=== PATIENT | male | born 1950 | race Caucasian/White ===

== ENCOUNTER → 2018-06-24 09:01 | Outpatient (CLI) | payer MEDICARE, SELFPAY ==
--- NOTE | 2018-06-24 09:04 | RAD_ITS ---
STUDY: X-RAY - LEFT ELBOW REASON FOR EXAM: Male, 68 years old. Chronic elbow pain. TECHNIQUE: 3 view(s) of the elbow. COMPARISON: July 12, 2014 FINDINGS: Normal visualized humerus, radius and ulna. Normal radiocapitellar and ulnotrochlear articulations. The soft tissue structures are unremarkable. RAD/Elbow min 3 Views IMPRESSION: No significant abnormality identified. Electronically Signed: Dariel Spencer MD at 11:15 EDT , Service support ,
== END ==
PROVIDERS: Family Provider Family Medicine; PCP Family Medicine; Visit Provider Orthopaedic Surgery
DX: M25.522 Pain in left elbow (principal)
CPT/HCPCS: 73080

== ENCOUNTER → 2018-08-11 10:05 | Outpatient (CLI) | payer MEDICARE, SELFPAY ==
--- NOTE | 2018-08-11 10:09 | RAD_ITS ---
STUDY: X-RAY - LUMBAR SPINE REASON FOR EXAM: Male, 68 years old. Low back pain. TECHNIQUE: 5 view(s) of the lumbar spine were obtained. COMPARISON: MRI lumbar spine dated August 21, 2015. FINDINGS: Normal lumbar lordosis. There is no substantial scoliosis. There is a normal alignment of the vertebrae. There is multilevel endplate spondylosis of the lumbar vertebrae. There is multi-level degenerative disc disease with multi-level disc space narrowing. There is multilevel degenerative arthropathy of the facet joints. Surgical clips are visible in the pelvis. RAD/L/S Spine Min 4 Views IMPRESSION: Multilevel degenerative disc disease and degenerative arthropathy of the lumbar spine. Electronically Signed: Eugenia Gamez MD at 9:46 EDT , Service support ,
== END ==
PROVIDERS: Family Provider Family Medicine; PCP Family Medicine; Visit Provider Nurse Practitioner Family
DX: M54.9 Dorsalgia, unspecified (principal)
CPT/HCPCS: 72110

== ENCOUNTER → 2018-12-30 14:36 | Outpatient (CLI) | payer MEDICARE, SELFPAY ==
[2018-11-26 13:41] VITALS: BMI 25.1
== END ==
PROVIDERS: Family Provider Family Medicine; PCP Family Medicine; Referring Provider Urology; Visit Provider Urology
DX: N40.1 Benign prostatic hyperplasia with lower urinary tract symptoms (principal); Z12.5 Encounter for screening for malignant neoplasm of prostate
CPT/HCPCS: 36415; 84153; G0103

== ENCOUNTER → 2019-12-27 16:54 | Outpatient (CLI) | payer MEDICARE, SELFPAY ==
[2019-12-22 09:33] VITALS: BMI 25.1
--- NOTE | 2019-12-27 17:00 | MRI_ITS ---
STUDY: MRI LEFT ELBOW REASON FOR EXAM: Medial left elbow pain radiating down arm and episodes of numbness in the fourth and fifth digits. TECHNIQUE: Standardized fat and water weighted pulse sequences were obtained in all 3 orthogonal planes. COMPARISON: Radiographs 06/24/2018. FINDINGS: Normal radio-capitellum articulation. Normal radial collateral ligamentous complex. There is tendinosis of the common extensor tendon (inversion recovery coronal images 11-13) without discrete tendon tear. Normal ulnotrochlear articulation. There is a small partial tear of the ulnar collateral ligament at the humeral attachment (inversion recovery coronal image 15). There is an undersurface partial tear of the common flexor tendon (inversion recovery coronal image 15). The cubital tunnel is normal, with a normal ulnar nerve. Normal biceps tendon and distal insertion. Normal lacertus fibrosis. Normal brachialis musculotendinous insertion. Normal triceps tendon and teno-osseous insertion. Normal olecranon process. The visualized distal humerus, proximal radius, and ulna are normal. The visualized muscles of the distal arm and proximal forearm are normal. There is mild edema in the posterior ulnar subcutis adipose space. MRI/Upper Ext Joint Only(Routine) IMPRESSION: Partial tear of the common flexor tendon. Small partial tear of the ulnar collateral ligament. Tendinosis of the common extensor tendon. Electronically Signed: Favian Bernal MD at 7:49 EST Tel , Service support ,
== END ==
PROVIDERS: PCP Family Medicine; Referring Provider Orthopaedic Surgery; Visit Provider Orthopaedic Surgery
DX: G56.22 Lesion of ulnar nerve, left upper limb (principal)
CPT/HCPCS: 73221

== ENCOUNTER → 2020-01-10 10:13 | Outpatient (CLI) | payer MEDICARE, SELFPAY ==
[2020-01-03 08:31] VITALS: BMI 25.1
== END ==
PROVIDERS: PCP Family Medicine; Referring Provider Urology; Visit Provider Urology
DX: N40.1 Benign prostatic hyperplasia with lower urinary tract symptoms (principal)
CPT/HCPCS: 36415; 84153

== ENCOUNTER 2020-01-11 11:14 | Day surgery (SDC) | payer MEDICARE, SELFPAY ==
[2020-01-03 08:31] VITALS: BMI 25.1
[2020-01-11] MEDS: Lactated Ringers 1,000 ML 100 ML IV (12:01)
[2020-01-11 12:04] VITALS: BP 132/90; PULSE 60; RESP 16; TEMP 36.7; O2SAT 100; BMI 26.2
--- NOTE | 2020-01-11 13:00 | TESH_PTH ---
PATIENT: OMKAR SMITH LOC: [facility] [place] U#:[id number] AGE/SX: 69/M ROOM: RE01/11/[address]: Dr. Crista Shannon DO : 1950 BED: DIS: 01/11/2020 SPEC #: [id number] RECD: 01/11/20 16:26 STATUS: KELLY SMOOTH #: [id number] [place]: 01/11/20 13:[address]: Crista Shannon DEPT: SURGICAL PATHOLOGY RECD BY: Guevara Byrne ENTERED: 01/12/20 07:53 SP TYPE: TENDON OTHR DR: Dr. Tudne Lake MD Tissues: Tendon and tendon sheath, NOS Procedures: Surgery Specimen Level III HEADER OPERATION: Medial flexor tendon debridement, carpal tunnel release PRE-OP DIAGNOSIS: Partial tear of common extensor tendon of elbow; entrapment of left ulnar nerve TISSUE SUBMITTED: Tendon, left flexor MICROSCOPIC DIAGNOSIS Tendon, left flexor: Pieces of fibroadipose and dense fibroconnective tissue with reactive changes. CHRISTOPH:tarah 01/13/20 MICROSCOPIC DESCRIPTION Slides are reviewed. GROSS DESCRIPTION Received in fixative is one container labeled with the patient's name and designated tendon, left flexor. The specimen consists of two pieces of sweeney soft tissue that in aggregate measure 1.5 x 1 x 0.1 cm. The entire specimen is submitted in one cassette. / CHRISTOPH:tarah 01/12/20 TC:5 CPT: 00747
[2020-01-11] MEDS: Cefazolin 2 GM in 0.9% Normal Saline 100 ML IV (14:47)
[2020-01-11] MEDS: Mupirocin Ointment 22gm Tube 1 APPLIC (15:13)
--- NOTE | 2020-01-11 16:24 | HP.PCM_ITS ---
History and Physical I have re-examined the patient. There are no clinical changes since date of exam. Intake Intake Visit Reasons: left elbow Allergies povidone-iodine [From Betadine] Allergy (Verified 12/22/19 09:33) Rash soap [From Betadine] Allergy (Verified 12/22/19 09:33) Rash [facility] Surgical History (Updated 01/01/18 @ 15:13 by Briseyda Beaver) H/O hand surgery (Inactive) Previous back surgery (Inactive) S/P foot surgery (Inactive) cspine (Inactive) Social History (Updated 01/03/20 @ 09:[address] Crista Shannon, ) Smoking Status: Former smoker HPI left elbow: Details: Parts of this documentation were recorded by a scribe, this documentation accurately reflects the service provided and the decisions made by me, Dr. Crista Shannon DO 01/03/20 0828. OMKAR SMITH is a 69 year old M here today for F/U on left elbow. Patient had MRI completed on 12/27/2019 and is here today to get the results of this MRI. Patient continues to have left medial epicondyle pain. He also has numbness of his 4th and 5th digits. He has had an EMG completed has well. He had a left medial epicondyle injection in 03/22/2019 which was semi-effective. ROS [facility] [place] Reports joint pain, Denies joint swelling, Reports numbness, Reports tingling Skin/Breast Reports system reviewed and no additional complaints, except as docu Neuro Yes numbness, Yes tingling Ortho Exam Left Elbow Test: Yes Pain w/ resist wrist flex Sensation: Radial: I, Ulnar: D (diminished 2 pt 5th finger 5mm), Median: I Motor: Elbow Extension: 5, Elbow Flexion: 5, EPL: 5, FDP-2: 5, 1st Dorsal Interosseous: 5 Assessment & Plan Problems 1. Partial tear of common extensor tendon of elbow S56.519A 2. 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 His treatment options are do nothing, surgery for debridement and tendon repair with possible ulnar nerve transposition and explained the post op restrictions/splinting. Reviewed the pre-operative plans with the patient. Risks and benefits of the procedure were fully explained, including but not limited to infection, neurovascular injury, continued pain, arthritis, stiffness, need for further surgery, re-injury, DVT, PE, general risks of anesthesia, and loss of limb or life. The patient understands all the risks and does wish to proceed with written consent. Follow up post op or sooner if pain, swelling, numbness or associated symptoms, or concerns develop. All questions answered. Patient in agreement of plan. 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
--- NOTE | 2020-01-11 16:25 | PCM.DC.ORTHO ---
Discharge Diet: No Restrictions - Leave dressing intact, follow-up in 2 weeks for dressing removal and initiation of physical therapy, call with concerns Discharge Activity: May Not Drive May shower in (days): 1 Ice area for (Minutes): 20 - Every hour while awake. Weight Bearing Status: Weight bearing as tolerated Keep extremity elevated above heart level: Operative Extremity Call your doctor if your incision/area has: Continuous Slow Oozing, Sudden Increased Bleeding, Increased Pain/ Swelling, Increased Redness, Foul Smelling Discharge Call your doctor if you observe: Fever of 101 or Higher, Coldness, Increased Pain, Numbness or Tingling, Change in Color, Calf discomfort Allergies/Adverse Reactions: Allergies povidone-iodine [From Betadine] Allergy (Verified 01/06/20 14:15) Rash soap [From Betadine] Allergy (Verified 01/06/20 14:) Rash Medications to take at Discharge Aspirin [Adult Low Dose Aspirin EC] 81 mg PO DAILY 08/18/15 Multivitamin [Daily Multiple Vitamin] 1 ea PO DAILY 08/18/15 calcium carbonate 500 mg calcium (1,250 mg) tablet 500 mg PO DAILY tab 01/01/18 cholecalciferol (vitamin D3) 25 mcg (1,000 unit) capsule 1,000 unit PO ONCE 01/01/18 flaxseed oil 1,000 mg capsule 1,000 mg PO DAILY 07/19/19 ibuprofen 200 mg capsule 200 mg PO Q6H PRN 07/19/19 methimazole 5 mg tablet 3 tab PO DAILY 07/19/19 pantoprazole 40 mg tablet,delayed release 40 mg PO DAILY 07/19/19 DiphenhydrAMINE [Benadryl] 50 mg PO QHS PRN PRN 01/06/20 Finasteride [Proscar] 5 mg PO DAILY 01/06/20 Oxycodone HCl/Acetaminophen [Percocet 5/325] 1 - 2 tab PO Q6H PRN PRN 5 Days #28 tab 01/11/20 The following prescriptions were given: Oxycodone HCl/Acetaminophen [Percocet 5/325] 1 - 2 tab PO Q6H PRN PRN 5 Days #28 tab PRN Reason: Pain Transmission Status: Sent to [facility] Primary Care Physician: Tunde Lake MD [Primary Care Provider] - Test Results: Test results from this visit will be discussed in further detail at your follow-up appointment, if applicable. Please Follow Up With: Crista Shannon, do - [phone]
--- NOTE | 2020-01-11 16:26 | OP.PCM_ITS ---
Report of Operation Date of Procedure: 01/11/20 Pre-Operative Diagnosis: left medial epicondylitis, ulnar neuritis Post-Operative Diagnosis: same Surgery/Procedure Performed:: left ulnar nerve release/subcut transposition, medial epicondylitis debridement and fcr insertion excision and repair catapult and arresting gear officer: Dong Wright Type of Anesthesia:: General Anesthesiologist: Hermelindo Linder Estimated Blood Loss (mL): min Fluids Replaced: 1200cc Description of Procedure: Preoperative note Patient is a 69-year-old female with known left cubital tunnel and medial epicondylitis. EMG confirms ulnar neuritis. Patient having increasing weakness and numbness and tingling down to his fourth and fifth. Risks benefits and alternatives surgery discussed with patient. Risks including but not limited to blood loss, blood clot, infection, neurovascular injury, failure procedure, loss of life and loss of limb. Patient is aware like proceed with left cubital tunnel release release please note the possible transposition and medial epicondylitis debridement and flexor tendon debridement and repair as indicated. Operative note Patient seen and examined preoperative holding area. Left elbow was marked. Patient brought to the operating room placed supine in the operating table. Sign, anesthesia, antibiotics were administered. The left arm was prepped and draped in usual sterile fashion all bony possible padded and SCDs placed on her contralateral limb. Left arm was prepped and draped in usual sterile fashion we placed a sterile tourniquet on her arm during sterile draping. The incision was marked out between the medial epicondyle and the olecranon about 4 7 m proximal and distal. The we then made our incision with 15 blade down to the subcuticular layer we then dissected with tenotomy to the level of the subcuticular subcutaneous fat. We released that accommodation of Bovie and tenotomies down to start with the arcade of Doreen we then released the medial epicondyle intermuscular septum we able to then find the ulnar nerve at that point we then released Escalante's fascia there is a slight thickening between the medial epicondyle and olecranon fossa and olecranon which was released we then he also had quite entrapment at the 2 heads of the FCU which was released as well. We then moved to our medial epicondylitis. After making the sling with FCR we able to vision visualize the grayish tendon of the flexor wad and this was this common tendon was excised this completely we then used a knife and rasp to rasp the bone to instill blood flow and healing we then closed the defect with a 2-0 Vicryl. We then used the fcr fascia to create a sling anteriorly after we decreased the sling anteriorly at the nerve was completely released extend and flex the elbow noted we had no further impingement in the nerve did glide within the new sling. We then irrigated the incision with copious amounts sterile saline. The skin was closed with cutaneous subcuticular she has been 2-0 Vicryl in a running 4-0 Monocryl sterile dressings and a splint at 90? was applied. Patient tolerated procedure well there are no comp occasions transferred to recovery room in stable condition. Postoperative note Pharmacy has pain pills next Discussed with family next Follow-up in 2 weeks leave splint on at all times his Nonweightbearing left arm next Call with increased pain numbness tingling further issues arise next This note was generated with [employer] dictation software. It may contain incorrect words, spelling, and punctuation that were not noted in checking the note before signing.
[2020-01-11 16:34] VITALS: BP 127/82; BP 132/90; PULSE 76; RESP 16; TEMP 36.2; O2SAT 94
[2020-01-11 16:45] VITALS: BP 125/85; BP 132/90; PULSE 76; RESP 16; O2SAT 96
[2020-01-11 16:51] VITALS: BP 129/85; BP 132/90; PULSE 74; RESP 16; TEMP 36.1; O2SAT 95
[2020-01-11] MEDS: HYDROcodone Bitartrate/Apap 5/325 Tablet PO (17:10)
[2020-01-11 17:32] VITALS: BP 122/79; BP 132/90; PULSE 61; RESP 16; TEMP 36.8; O2SAT 97
== END 2020-01-11 17:44 | disposition home or self-care (01) ==
LOC: SDC 11:15 → AC 11:40
PROVIDERS: PCP Family Medicine; Referring Provider Orthopaedic Surgery; Visit Provider Orthopaedic Surgery
PROC: (CPT 24358; principal; 2020-01-11 12:45)
DX: G56.22 Lesion of ulnar nerve, left upper limb (principal); M77.02 Medial epicondylitis, left elbow; S56.519A Strain of other extensor muscle, fascia and tendon at forearm level, unspecified arm, initial encounter; X58.XXXA Exposure to other specified factors, initial encounter; Y93.9 Activity, unspecified; Y92.9 Unspecified place or not applicable; Y99.9 Unspecified external cause status; E07.9 Disorder of thyroid, unspecified; K21.9 Gastro-esophageal reflux disease without esophagitis; Z79.82 Long term (current) use of aspirin; Z79.899 Other long term (current) drug therapy; Z88.8 Allergy status to other drugs, medicaments and biological substances; Z87.891 Personal history of nicotine dependence; Z85.828 Personal history of other malignant neoplasm of skin
CPT/HCPCS: 01710; 24358; 64718; 88304; J7120; J2405

== ENCOUNTER → 2021-01-21 09:57 | Outpatient (CLI) | payer MEDICARE, SELFPAY ==
[2020-02-21 08:45] VITALS: BMI 26.2
[2021-01-21 11:21] LABS: PSA,Total - Annual Screen 1.47 ng/mL (0.00-4.00)
== END ==
PROVIDERS: PCP Family Medicine; Visit Provider Urology
DX: Z12.5 Encounter for screening for malignant neoplasm of prostate (principal)
CPT/HCPCS: 36415; 84153; G0103

== ENCOUNTER → 2021-04-25 09:58 | Outpatient (CLI) | payer MEDICARE, SELFPAY ==
[2020-02-21 08:45] VITALS: BMI 26.2
--- NOTE | 2021-04-25 10:06 | EKG12_ITS ---
Test Reason : PREOP Blood Pressure : / mmHG Vent. Rate : 058 BPM Atrial Rate : 058 BPM P-R Int : 130 ms QRS Dur : 086 ms QT Int : 416 ms P-R-T Axes : 061 052 074 degrees QTc Int : 408 ms Sinus bradycardia Otherwise normal ECG Confirmed by BILLY MAYORGA, KARL ([id number]), videotape editor AMALIA SHIRLEY ([id number]) on 04/29/2021 10:38:42 AM Referred By: Yobani Holloway Confirmed By:ROSANGELA CERVANTES MD
--- NOTE | 2021-04-25 10:22 | RAD_ITS ---
INDICATION: PRE OP EXAMINATION/TECHNIQUE: X-RAY - XR Chest 2 Views COMPARISON: None. FINDINGS: The lungs are clear. The cardiomediastinal silhouette is unremarkable. No pleural effusion or pneumothorax. No acute osseous abnormalities. RAD/Chest PA and Lateral IMPRESSION: No acute radiographic abnormalities. Electronically Signed: Martínez Malik MD at 21:11 EDT Tel , Service support ,
[2021-04-25 11:55] LABS: Absolute Lymphocyte Count 1.36 X10^3/uL (0.83-4.51); Absolute Neutrophil Count 3.1 X10^3/uL (2.0-7.7); Basophil# 0.04 X10^3/uL; Basophil% 0.8 % (0-1); Eosinophil# 0.15 X10^3/uL; Eosinophils% 2.9 % (0-5); Hematocrit 44.4 % (40-54); Hemoglobin 14.4 g/dL (13.0-16.5); Lymphocyte # 1.36 X10^3/ul (0.83-4.51); Lymphocyte % 26.4 % (19-41); Mean Corp Hgb Conc 32.4 g/dL (32-36); Mean Corpuscular Hgb 30.4 pg (27.0-32.0); Mean Corpuscular Volume 93.7 fL (80-94); Mean Platelet Vol. 10.8 fl (6.2-12.0); Monocyte# 0.46 X10^3/uL; Monocyte% 8.9 % (0-10); NRBC Flagged by Analyzer 0 % (0-5); Neutrophil # 3.14 X10^3/uL (2.7-7.7); Neutrophil % 60.8 % (47-70); Platelet Count 194 K/mm3 (150-450); RBC Distribution Width CV 13.2 % (11.6-14.6); RBC Distribution Width SD 45.6 fl (35.1-43.9); Red Blood Count 4.74 M/mm3 (4.6-6.2); White Blood Count 5.2 K/mm3 (4.4-11.0)
[2021-04-25 13:02] LABS: Anion Gap 5 (5-15); BUN 18 mg/dL (7-18); BUN/Creat Ratio 18.9 RATIO (10-20); Calcium,Total 9.1 mg/dL (8.5-10.1); Chloride 104 mmol/L (98-107); Creatinine, Serum 0.95 mg/dL (0.70-1.30); EST Glomerular Filtration Rate 83 mL/min (>60); Est Glom Filt Rate - Afr Amer 101 mL/min (>60); Glucose 92 mg/dL (74-106); Potassium 4.7 mmol/L (3.5-5.1); Sodium Level 139 mmol/L (136-145)
== END ==
PROVIDERS: PCP Family Medicine; Referring Provider Specialist; Visit Provider Specialist
DX: Z01.810 Encounter for preprocedural cardiovascular examination (principal); Z01.811 Encounter for preprocedural respiratory examination; I10 Essential (primary) hypertension
CPT/HCPCS: 36415; 71046; 80048; 85025; 93005

== ENCOUNTER 2022-02-14 09:15 | Outpatient (CLI) | payer MEDICARE, SELFPAY ==
--- NOTE | 2022-02-14 09:20 | RAD_ITS ---
STUDY: X-RAY - ESOPHAGUS (BARIUM SWALLOW) WITH FLUOROSCOPY REASON FOR EXAM: Male, 71 years old. DYSPHAGIA TECHNIQUE: 13 view(s) of the esophagus were obtained following swallowing of barium. FLUOROSCOPY TIME (if supplied): (21 seconds) minutes/seconds COMPARISON: Comparison is made with prior study dated 05/28/2017. FINDINGS: There is no demonstrated esophageal foreign body. There is no demonstrated stricture or mucosal abnormality. Normal gastroesophageal junction, without a demonstrated hiatal hernia. The patient ingested a 12 mm tablet of barium without any difficulty. There is atherosclerotic tortuosity of the aortic arch and descending thoracic aorta. Normal visualized pulmonary parenchyma. Normal visualized osseous structures of the thorax. RAD/Esophagus Dual Contrast IMPRESSION: Normal plain film x-ray examination (barium swallow) of the esophagus. Electronically Signed: Joaquín John MD at 9:54 EDT ,
== END 2022-02-14 23:59 | disposition home or self-care (01) ==
LOC: RAD 09:16
PROVIDERS: PCP Family Medicine; Referring Provider Family Medicine; Visit Provider Family Medicine
DX: R13.19 Other dysphagia (principal)
CPT/HCPCS: 74221

== ENCOUNTER → 2023-02-05 | Outpatient (CLI) | payer MEDICARE, SELFPAY ==
[2023-02-05 11:06] LABS: PSA,Total - Annual Screen 2.91 ng/mL (0.00-4.00)
== END | disposition home or self-care (01) ==
LOC: LAB 10:21
PROVIDERS: PCP Family Medicine; Referring Provider Urology; Visit Provider Urology
DX: Z12.5 Encounter for screening for malignant neoplasm of prostate (principal)
CPT/HCPCS: 36415; 84153; G0103

== ENCOUNTER → 2023-09-04 | Outpatient (CLI) | payer MEDICARE, SELFPAY ==
[2023-09-04 15:15] LABS: Absolute Lymphocyte Count 1.58 X10^3/uL (0.83-4.51); Absolute Neutrophil Count 3.9 X10^3/uL (2.0-7.7); Basophil# 0.05 X10^3/uL; Basophil% 0.8 % (0-1); Eosinophil# 0.12 X10^3/uL; Hematocrit 44.1 % (40-54); Lymphocyte # 1.58 X10^3/ul (0.83-4.51); Mean Corp Hgb Conc 31.7 g/dL (32-36); Mean Corpuscular Hgb 30.4 pg (27.0-32.0); Mean Corpuscular Volume 95.9 fL (80-94); Mean Platelet Vol. 10.8 fl (6.2-12.0); Monocyte# 0.42 X10^3/uL; Monocyte% 6.9 % (0-10); NRBC Flagged by Analyzer 0 % (0-5); Neutrophil # 3.89 X10^3/uL (2.7-7.7); Neutrophil % 64.1 % (47-70); Platelet Count 254 K/mm3 (150-450); RBC Distribution Width CV 12.8 % (11.6-14.6); RBC Distribution Width SD 45.5 fl (35.1-43.9); White Blood Count 6.1 K/mm3 (4.4-11.0)
[2023-09-04 15:38] LABS: Cholesterol 157 mg/dL (200); Ferritin 124 ng/mL (26-388); High Density Lipoprotein 67 mg/dL; Iron 86 ug/dL (65-175); Iron Binding Capacity,Total 319 ug/dL (250-450); Triglycerides 96 mg/dL; Very Low Density Lipoprotein 19 mg/dL (5-40)
== END | disposition home or self-care (01) ==
LOC: BIMLAB 12:11
PROVIDERS: PCP Internal Medicine; Referring Provider Internal Medicine; Visit Provider Internal Medicine
DX: D64.9 Anemia, unspecified (principal); E78.5 Hyperlipidemia, unspecified
CPT/HCPCS: 36415; 80061; 82728; 83540; 83550; 85025

== ENCOUNTER → 2023-10-02 | Outpatient (CLI) | payer MEDICARE, SELFPAY ==
--- NOTE | 2023-10-02 13:48 | ST.MBS ---
Modified Barium Swallow Patient Information Study Date: 10/02/23 Study Time: 12:50 Direct Billable Minutes: 117 Total Minutes procedure & reportin Diagnosis: Dysphagia R13.10 Referring Physician: Vy Casas Reason for Referral: Objectively assess swallow function, assess risk for aspiration, and determine recommendations for least restrictive diet textures and compensatory strategies to improve safety of swallow. Medical History: PMH: Allergies, Anemia, Anxiety, Arthritis, Bunion, Carpal tunnel syndrome, Chronic back pain, Gastrointestinal problem, Graves disease, Shae's disease, Hearing problem, High cholesterol, History of back problems, History of melanoma, GERD, HLD, Impacted cerumen of left ear, Prostate atrophy, Sciatica, Swallowing difficulty, Thyroid disease, and Vitamin deficiency. PCP?s Office Visit 09/04/2023 ? ?History of swallowing difficulty. This has been worsening over the years. Had dilatation a few years ago and he does not remember being told that he would need another. Has had coughing episodes with food more often lately and has to chew more or regurgitate his meals and re-chew.? She referred him for this MBSS and to general surgery to be considered for another dilation. Per patient, he feels as if dry textures get caught in his upper throat. He has had this swallowing difficulty since he had a cervical fusion ~6 years ago. He denies history of choking or PNA. Current Diet Ordered: Regular textures / Thin liquids Dentition: WNL Mental Status: WNL Respiratory Status: Oxygenating on Room Air Penetration-Aspiration Scale Penetration-Aspiration Scale: OBJECTIVE ASSESSMENT OF SWALLOW FUNCTION (QUANTITATIVE ? PER TRIAL): PENETRATION / ASPIRATION SCALE (GARCIA): 1 = does not enter airway 2 = enters airway/above vocal folds/ejected 3 = enters airway/above vocal folds/not ejected 4 = enters airway/contacts vocal folds/ejected 5 = enters airway/contacts vocal folds/not ejected 6 = enters airway/below vocal folds/ejected 7 = enters airway/below vocal folds/not ejected despite effort 8 = enters airway/below vocal folds/no effort VIDEOFLOROSCOPIC SCALE SCORE (GARCIA): Grade I = aspiration of material that has penetrated into the laryngeal vestibule, intact cough reflex Grade II = aspiration < 10 % of the bolus, intact cough reflex Grade III = aspiration of < 10 % of the bolus, reduced cough reflex or aspiration of > 10 % of the bolus, intact cough reflex Grade IV = aspiration of > 10 % of the bolus, reduced cough reflex Penetration-Aspiration Scale Score Thin Liquid via teaspoon: Result: 1= does not enter airway Thin Liquid via teaspoon Effortful swallow: Result: 1= does not enter airway Thin Liquid via sequential sips: cup: Result: 2= enter airway/above vocal folds/ejected [place] Thick Liquid via small single sip: cup: Result: 1= does not enter airway Pudding via teaspoon: Result: 1= does not enter airway Comment: Esophageal screen - complete clearance. Whole cookie: Result: 1= does not enter airway Whole cookie Chin tuck: Result: 1= does not enter airway Thin Liquid via single sip: straw: Result: 1= does not enter airway Comment: Liquid wash did not clear cookie residue. PRINCIPAL DATABASE DEVELOPER cued effortful double swallow, but cookie residue remained in vallecula. Whole cookie Left head turn: Result: 1= does not enter airway Oral Phase Labial Seal: No Labial Escape Tongue Control During Bolus Hold: Posterior escape of greater than half of bolus Bolus Preparation/Mastication: Timely and efficient chewing and mashing Bolus Transport/Lingual Motion: Delayed initiation of tongue motion Oral Residue: Residue collection on oral structures Pharyngeal Phase Initiation of Pharyngeal Swallow: Bolus head in pyriforms Soft Palate Elevation: No bolus between soft palate and pharyngeal wall Laryngeal Elevation: Comp. Superior move thyroid cart w/comp. apprx arytenoid cart-epig pet Anterior Hyoid Excursion: Partial anterior movement (minimal) Epiglottic Movement: No inversion Laryngeal Vestibule Closure at Height of Swallow: Incomplete; narrow column of air/contrast in laryngeal vestibule Pharyngeal Stripping Wave: Present - diminished Pharyngoesophageal Segment Opening: Complete distension and complete duration; no obstruction of flow Tongue Base Retraction: Wide column of contrast between tongue base & post. pharyngeal wall Pharyngeal Residue: Collection of residue within or on pharyngeal structures Treatment Strategies Effects of treatment strategies attemped:: Effortful swallow = effective with liquids, not effective with cookie Head rotation (L) = effective in clearance of solids in the vallecula Multiple swallows = effective with liquids, somewhat effective with cookie Chin tuck = not effective, worsened vallecular residues Diagnosis/Impression Diagnosis: Mild pharyngeal dysphagia R13.12 Impression: The pharyngeal phase is primarily marked by... -Delayed swallow onset with large sips of liquids in the pyriforms and laryngeal vestibule prior to swallow onset. -Minimal anterior hyoid excursion resulting in no epiglottic inversion. -Absent epiglottic inversion, mildly decreased tongue base retraction, and decreased pharyngeal stripping wave resulted in collection of residues in the vallecula with cookie. This residue best cleared with use of head rotation. Head rotation was trialed to attempt better clearing the epiglottis past the posterior pharyngeal wall. PRINCIPAL DATABASE DEVELOPER had the patient trial a dry, uncoated cookie after the study with head rotation again, and he reported no sensation of retention. -Laryngeal penetration of large sips of thin liquids via cup; however, full ejection due to complete laryngeal elevation. No aspiration observed during the study. Recommendations Diet: Regular Textures and Thin Liquids Compensatory Strategies: Small Bites (head turn (either direction) during the swallow with dry textures), Small Sips (consider use of effortful swallows), Slow Rate, Multiple Swallows, Sitting upright and Remain sitting upright for 30 minutes after PO intake (hx of GERD) Recommend Repeat Modified Barium Swallow: TBD Need for Skilled Speech Therapy Services: Yes Comment: Will recommend training in recommended strategies to improve pharyngeal clearance and decrease risk for aspiration. Train in recommended oropharyngeal exercises, including Sierra, Minnie, Effortful breath hold and swallow, and CTAR to promote improved anterior hyoid excursion, tongue base retraction, and pharyngeal stripping wave. Education Completed: 1. Described result of evaluation., 2. Pt understands evaluation & agrees with goals and treatment plan. and 7. Pt requires further education on strategies & risks. Status Active ST Patient: Active Contact Information [facility] Speech Therapy:: Jenna Blakely M.A. [facility]AB[employer] DEVELOPER Speech-Language Pathologist [facility] [address] [address] [email or web address] [phone]
== END | disposition home or self-care (01) ==
LOC: RAD 12:51
PROVIDERS: PCP Internal Medicine; Referring Provider Internal Medicine; Visit Provider Internal Medicine
DX: R13.10 Dysphagia, unspecified (principal)
CPT/HCPCS: 74230; 92611

== ENCOUNTER 2023-11-19 08:54 | Day surgery (SDC) | payer MEDICARE, SELFPAY ==
[2023-11-19] VITALS (7 sets, daily range): BP systolic 89–132; BP diastolic 62–69; PULSE 52–80; RESP 16–18; TEMP 36.5–37.1; O2SAT 92–98; BMI 25.7
--- OUTSIDE RECORDS SUMMARY | 2023-11-19 09:08 | XMS RPT_ITS | CCD ---
Author Name Unknown Address [address] [place] [address] Organization [facility] Care Team Providers Care Clinical Trial Educator Name Role Phone Johnie Luna Unavailable JIGNA DORAN Unavailable Unavailable JIGNA DORAN Unavailable Unavailable LOKI WAGGONER Unavailable Unavailable Johnie Luna Unavailable YAEL LAKE MD Primary Care Physician ( [phone] Yael Lake MD Primary Care Provider Yael Lake MD Primary Care Provider Yael Lake MD Primary Care Provider Yael Lake MD Primary Care Provider YAEL LAKE Primary Care Unavailab YAEL Hansen Attending Unavailab YAEL Hansen Primary Care Unavailab LANDON Rogel Attending Unavailable YAEL LAKE Primary Care Unavailab YAEL Hansen Attending Unavailab YAEL Hansen Primary Care Unavailab YAEL Hansen Attending Unavailab YAEL Hansen Primary Care Unavailab YAEL Hansen Referring Unavailab YAEL Hansen Primary Care Unavailab YAEL Hansen Referring Unavailab YAEL Hansen Primary Care Unavailab YAEL Hansen Attending Unavailab YAEL Hansen Primary Care Unavailab YAEL Hansen Referring Unavailab YAEL Hansen MD Primary Care Physician [phone] IVON SINGH PA-C Attending Unavailable YAEL LAKE MD Primary Care IVON Sargent PA-C Referring Unavailable CONNIE GARCIA MD Attending Denita LAKE MD, YAEL Primary Care Denita marvin Allergies Allergy Classification Reported Allergen(s) Allergy Type Date of Onset Reaction(s) Facility (18 sources) Povidone-Iodine; Translations: [povidone iodine topical] Drug Allergy 02-10-2006 [facility] Medications Current Medications Medication Drug Class(es) Dates Sig (Normalized) Sig (Original) amoxicillin 875 mg / clavulanate 125 mg oral tablet (1 source) Penicillin-class Antibacterial Start: 03-13-2022 End: 03-20-2022 take 1 tablet by mouth twice daily amoxicillin-clav ulanic acid (AUGMENTIN) 875-125 mg per tablet Take 1 tablet by mouth twice daily for 7 days. 14 tablet 0 03/13/2022 03/20/2022 Active Completed/Discontinued Medications Medication Drug Class(es) Dates Sig (Normalized) Sig (Original) atorvastatin 20 mg oral tablet (3 sources) HMG-CoA Reductase Inhibitor Start: 04-06-2023 End: 07-05-2023 take 1 tablet by mouth once daily at bedtime for hyperlipidemia atorvastatin (LIPITOR) 20 mg tablet Take 1 tablet by mouth daily at bedtime. For cholesterol. 90 tablet 0 04/06/2023 Active Problems Active Problems Problem Classification Problem Date Documented Da te Episodic/Chronic Allergic reactions (14 sources) Environmental allergy; Translations: [Other allergy status, other than to drugs and biological substances] 10-08-2017 Episodic Anxiety disorders (20 sources) Panic disorder; Translations: [Panic disorder [episodic paroxysmal anxiety]] Onset: 04-06-2023 04-05-2018 Chronic Deficiency and other anemia (3 sources) Iron deficiency anemia 06-14-2020 Episodic Disorders of lipid metabolism (18 sources) Pure hypercholesterolemi a; Translations: [Pure hypercholesterolemi a, unspecified] Onset: 04-01-2023 03-10-2006 Chronic Fluid and electrolyte disorders (3 sources) Hyperkalemia 09-06-2020 Episodic Hemorrhoids (14 sources) Hemorrhoids; Translations: [Unspecified hemorrhoids] 03-10-2006 Episodic Hyperplasia of prostate (20 sources) Benign prostatic hypertrophy without outflow obstruction; Translations: [Benign prostatic hyperplasia without lower urinary tract symptoms] Onset: 08-24-2006 03-10-2006 Chronic Melanomas of skin (15 sources) Malignant melanoma of skin of trunk; Translations: [Malignant melanoma of other part of trunk] 03-11-2006 Chronic Open wounds of extremities (1 source) Injury of great toenail; Translations: [Unspecified open wound of left great toe with damage to nail, initial encounter] Episodic Other and unspecified benign neoplasm (14 sources) History of polyp of colon; Translations: [Personal history of colonic polyps] 03-10-2006 Episodic Other connective tissue disease (1 source) Impingement syndrome of left shoulder region; Translations: [Impingement syndrome of left shoulder] Episodic Other diseases of bladder and urethra (14 sources) Bladder neck obstruction; Translations: [Bladder-neck obstruction] Onset: 08-24-2006 08-24-2006 Chronic Other gastrointestinal disorders (2 sources) Esophageal dysphagia; Translations: [Other dysphagia] Episodic Other hereditary and degenerative nervous system conditions (2 sources) Essential tremor; Translations: [Essential tremor] Chronic Other skin disorders (1 source) Skin irritation ; Translations: [Other skin changes] Episodic Other upper respiratory infections (1 source) Acute frontal sinusitis; Translations: [Acute frontal sinusitis, unspecified] Episodic Residual codes; unclassified (2 sources) Family history of aneurysm of abdominal aorta; Translations: [Family history of ischemic heart disease and other diseases of the circulatory system] Episodic Sprains and strains (3 sources) Strain of muscle(s) and tendon(s) of the rotator cuff of left shoulder, initial encounter; Translations: [Strain of muscle(s) and tendon(s) of the rotator cuff of left shoulder, subsequent encounter] Onset: 10-06-2016 10-06-2016 Episodic Thyroid disorders (20 sources) Graves' disease; Translations: [Shae thyroiditis] Onset: 09-08-2011 06-14-2020 Chronic Unclassified (1 source) Unknown / UNK(Unknown) Onset: 06-05-2017 Viral infection (1 source) Disease caused by 2019-nCoV; Translations: [COVID-19] Episodic Past or Other Problems Problem Classification Problem Date Documented Da te Episodic/Chronic Mycoses (2 sources) Onychomycosis; Translations: [Tinea unguium] Onset: 05-06-2022 Episodic Other connective tissue disease (3 sources) Subacromial bursitis; Translations: [Medial epicondylitis, unspecified elbow] Onset: 07-12-2014 10-06-2016 Episodic Other connective tissue disease (1 source) Medial epicondylitis, unspecified elbow; Translations: [Medial epicondylitis, unspecified elbow] Onset: 07-12-2014 07-12-2014 Episodic Other gastrointestinal disorders (1 source) Dysphagia Onset: 06-05-2017 Episodic Other gastrointestinal disorders (14 sources) Diarrhea; Translations: [Diarrhea, unspecified] Onset: 11-08-2007 11-08-2007 Episodic Other injuries and conditions due to external causes (2 sources) Injury of axillary nerve, left arm, initial encounter; Translations: [Injury of axillary nerve, left arm, initial encounter] Onset: 10-06-2016 10-19-2016 Episodic Other male genital disorders (14 sources) High grade prostatic intraepithelial neoplasia; Translations: [Prostatic intraepithelial neoplasia] Onset: 01-20-2017 01-20-2017 Episodic Other non-traumatic joint disorders (2 sources) Pain in unspecified elbow; Translations: [Pain in unspecified elbow] Onset: 07-12-2014 07-12-2014 Episodic Other screening for suspected conditions (not mental disorders or infectious disease) (15 sources) Raised prostate specific antigen; Translations: [Elevated prostate specific antigen [PSA]] Onset: 11-21-2008 11-21-2008 Episodic Results Test Name Value Interpretation Reference Range Facil ity Vital Signs Date Time Vital Sign Value Performing Clinician Facility 04-06-2023 09:38-0400 Diastolic blood pressure 66 mm[Hg] Yael Lake MD Work Phone: [facility] 04-06-2023 09:38-0400 Heart rate 52 /min Yael Lake MD Work Phone: [facility] 04-06-2023 09:38-0400 Respiratory rate 16 /min Yael Lake MD Work Phone: [facility] 04-06-2023 09:38-0400 SaO2% (BldA) [Mass fraction] 96 % Yael Lake MD Work Phone: [facility] 04-06-2023 09:38-0400 Systolic blood pressure 112 mm[Hg] Yael Lake MD Work Phone: [facility] 10-06-2022 09:38-0500 Body weight 84.28 kg Yael Lake MD Work Phone: [facility] 10-06-2022 09:38-0500 Diastolic blood pressure 68 mm[Hg] Yael Lake MD Work Phone: [facility] 10-06-2022 09:38-0500 Heart rate 59 /min Yael Lake MD Work Phone: [facility] 10-06-2022 09:38-0500 Respiratory rate 16 /min Yael Lake MD Work Phone: [facility] 10-06-2022 09:38-0500 SaO2% (BldA) [Mass fraction] 97 % Yael Lake MD Work Phone: [facility] 10-06-2022 09:38-0500 Systolic blood pressure 104 mm[Hg] Yael Lake MD Work Phone: [facility] 07-04-2022 09:47-0400 Body weight 82.56 kg Yael Lake MD Work Phone: [facility] 07-04-2022 09:47-0400 Diastolic blood pressure 60 mm[Hg] Yael Lake MD Work Phone: [facility] 07-04-2022 09:47-0400 Heart rate 59 /min Yael Lake MD Work Phone: [facility] 07-04-2022 09:47-0400 Respiratory rate 16 /min Yael Lake MD Work Phone: [facility] 07-04-2022 09:47-0400 SaO2% (BldA) [Mass fraction] 96 % Yael Lake MD Work Phone: [facility] 07-04-2022 09:47-0400 Systolic blood pressure 102 mm[Hg] Yael Lake MD Work Phone: [facility] 05-06-2022 14:54-0400 Body weight 82.56 kg Yael Lake MD Work Phone: [facility] 05-06-2022 14:54-0400 Diastolic blood pressure 60 mm[Hg] Yael Lake MD Work Phone: [facility] 05-06-2022 14:54-0400 Heart rate 63 /min Yael Lake MD Work Phone: [facility] 05-06-2022 14:54-0400 Respiratory rate 16 /min Yael Lake MD Work Phone: [facility] 05-06-2022 14:54-0400 SaO2% (BldA) [Mass fraction] 97 % Yael Lake MD Work Phone: [facility] 05-06-2022 14:54-0400 Systolic blood pressure 106 mm[Hg] Yael Lake MD Work Phone: [facility] 03-13-2022 09:43-0400 Body temperature 98.01 [degF] Jerrica Athy PA-C Work Phone: [facility] 03-13-2022 09:43-0400 Body weight 85.09 kg Jerrica Athy PA-C Work Phone: [facility] 03-13-2022 09:43-0400 Diastolic blood pressure 78 mm[Hg] Jerrica Athy PA-C Work Phone: [facility] 03-13-2022 09:43-0400 Heart rate 67 /min Jerrica Athy PA-C Work Phone: [facility] 03-13-2022 09:43-0400 Respiratory rate 20 /min Jerrica Athy PA-C Work Phone: [facility] 03-13-2022 09:43-0400 SaO2% (BldA) [Mass fraction] 98 % Jerrica Athy PA-C Work Phone: [facility] 03-13-2022 09:43-0400 Systolic blood pressure 122 mm[Hg] Jerrica Anguiano PA-C Work Phone: [facility] 02-10-2022 09:50-0400 Body weight 84.91 kg Yael Lake MD Work Phone: [facility] 02-10-2022 09:50-0400 Diastolic blood pressure 70 mm[Hg] Yael Lake MD Work Phone: [facility] 02-10-2022 09:50-0400 Heart rate 59 /min Yael Lake MD Work Phone: [facility] 02-10-2022 09:50-0400 Respiratory rate 18 /min Yael Lake MD Work Phone: [facility] 02-10-2022 09:50-0400 SaO2% (BldA) [Mass fraction] 97 % Yael Lake MD Work Phone: [facility] 02-10-2022 09:50-0400 Systolic blood pressure 118 mm[Hg] Yael Lake MD Work Phone: [facility] 08-23-2014 08:56-0400 [facility].18 [facility] Work Phone: 07-12-2014 10:17-0400 BP Diastolic 78 mm[Hg] Johnie Luna [facility] Work Phone: 07-12-2014 10:17-0400 BP Systolic 115 mm[Hg] [facility] Work Phone: 07-12-2014 10:17-0400 Height 180.34 cm Johnie Luna [facility] Work Phone: Encounters Encounter Date Encounter Type Care Provider Facility Start: 06-30-2023 End: 07-01-2023 ambulatory CONNIE GARCIA MD Facility:B Start: 06-30-2023 End: 06-30-2023 Patient encounter procedure CONNIE GARCIA MD [facility] Start: 05-06-2023 Refill Yael Lake MD Work Phone: [facility] Procedures Date Procedure Procedure Detail Performing Clinician Start: 04-10-2023 Us abdominal aorta r eal time screen study aaa Yael Lake MD Work Phone: Start: 04-06-2023 Lipid 1996 panel - S maikel or Plasma Us 1 Work Phone: Start: 07-14-2022 Adult depression screening assessment Landon Hurst APRN.HOISTMAN Work Phone: Start: 02-10-2022 Adult depression screening assessment Yael Lake MD Work Phone: Start: 12-02-2019 Colonoscopy Tunde Lake MD Work Phone: Start: 07-08-2017 End: 07-22-2017 Drain/inject, joint/bursa Johnie S Jeremy Work Phone: Start: 01-12-2017 End: 01-26-2017 Drain/inject, joint/bursa Johnie S Jeremy Work Phone: Start: 10-06-2016 End: 10-19-2016 Drain/inject, joint/bursa Johnie S Jeremy Work Phone: Start: 07-30-2016 End: 07-30-2016 Drain/inject, joint/bursa Johnie S Jeremy Work Phone: Start: 04-09-2016 End: 04-23-2016 Drain/inject, joint/bursa Johnie S Jeremy Work Phone: Start: 11-29-2014 End: 12-04-2014 Drain/inject, joint/bursa Johnie S Jeremy Work Phone: Start: 07-12-2014 End: 07-12-2014 X-ray exam of elbow Johnie Luna Work Phone: Entire carpal canal (body structure) YAEL LAKE MD Excision of bunion ERIN LAKE MD Plan of Treatment Date Care Activity Detail Author Start: 04-06-2028 Lipid 1996 panel - Serum or Plasma Lipid Screening [facility] Start: 04-06-2028 LIPID SCREEN LIPID SCREEN [facility] Start: 11-17-2027 Urine microalbumin profile [facility] Start: 04-25-2026 LIPID SCREEN LIPID SCREEN [facility] Start: 04-06-2026 DIABETES SCREEN DIABETES SCREEN [facility] Start: 04-06-2026 Diabetes Screening Diabetes Screening [facility] Start: 05-06-2025 DIABETES SCREEN DIABETES SCREEN [facility] Start: 12-02-2024 Colonoscopy COLONOSCOPY [facility] Start: 12-02-2024 COLORECTAL CANCER SCREENING COLORECTAL CANCER SCREENING [facility] Start: 04-25-2024 DIABETES SCREEN DIABETES SCREEN [facility] Start: 04-06-2024 ANNUAL PCP TEAM CHRONIC DISEASE VISIT ANNUAL PCP TEAM CHRONIC DISEASE VISIT [facility] Start: 10-06-2023 ANNUAL PCP TEAM CHRONIC DISEASE VISIT ANNUAL PCP TEAM CHRONIC DISEASE VISIT [facility] Start: 07-24-2023 Covid-19 Vaccine ( season) Covid-19 Vaccine () [facility] Start: 07-24-2023 Influenza vaccination Influenza Vaccine (#1) [facility] Start: 07-15-2023 ANNUAL PCP TEAM CHRONIC DISEASE VISIT ANNUAL PCP TEAM CHRONIC DISEASE VISIT [facility] Start: 07-14-2023 Adult depression screening assessment DEPRESSION SCREENING [facility] Start: 07-04-2023 ANNUAL PCP TEAM CHRONIC DISEASE VISIT ANNUAL PCP TEAM CHRONIC DISEASE VISIT [facility] Start: 05-06-2023 ANNUAL PCP TEAM CHRONIC DISEASE VISIT ANNUAL PCP TEAM CHRONIC DISEASE VISIT [facility] Start: 02-10-2023 Adult depression screening assessment DEPRESSION SCREENING [facility] Start: 02-10-2023 ANNUAL PCP TEAM CHRONIC DISEASE VISIT ANNUAL PCP TEAM CHRONIC DISEASE VISIT [facility] Start: 11-23-2022 ADVANCE DIRECTIVE DISCUSSION ADVANCE DIRECTIVE DISCUSSION [facility] Start: 11-23-2022 DEPRESSION ASSESSMENT DEPRESSION ASSESSMENT [facility] Start: 07-24-2022 Influenza vaccination INFLUENZA (#1) [facility] Start: 05-06-2022 End: 07-06-2022 Comprehensive metabolic 2000 panel - Serum or Plasma [facility] Work Phone: Immunizations Immunization Date Immunization Notes Care Provider Fa [facility] 08-14-2022 influenza, high-dose , quadrivalent vaccine (FLUZONE HIGH DOSE QUADRIVALENT) Yael Lake MD Work Phone: [facility] 08-14-2022 influenza virus vaccine, unspecified formulation Us 1 Work Phone: [facility] 09-13-2021 COVID-19 vaccine, fu ll dose (MODERNA) Yael Lake MD Work Phone: [facility] 09-06-2021 influenza, high dose seasonal, preservative-free Yael Lake MD Work Phone: [facility] 02-19-2021 COVID-19 vaccine, fu ll dose (MODERNA) Yael Lake MD Work Phone: [facility] 01-22-2021 COVID-19 vaccine, fu ll dose (MODERNA) Yael Lake MD Work Phone: [facility] 09-07-2020 influenza, seasonal, injectable Yael Lake MD Work Phone: [facility] 09-14-2019 zoster vaccine recombinant Yael Lake MD Work Phone: [facility] 07-01-2019 zoster vaccine recombinant Yael Lake MD Work Phone: [facility] 10-06-2018 pneumococcal polysaccharide vaccine, 23 valent Yael Lake MD Work Phone: [facility] 11-17-2017 tetanus toxoid, redu johnna diphtheria toxoid, and acellular pertussis vaccine, adsorbed Yael Lake MD Work Phone: [facility] Work Phone: 09-14-2017 influenza, high dose seasonal, preservative-free Yael Lake MD Work Phone: [facility] 08-12-2017 pneumococcal conjuga te vaccine, 13 valent Yael Lake MD Work Phone: [facility] Payers Date Payer Category Payer Medicare AETNA MEDICARE A ETNA MEDICARE PPO [id number] 2021-Present [phone] [address] [place] [address] PPO [id number] 2021 Medicare AETNA MEDICARE A ETNA MEDICARE PPO [id number] 2021-Present [phone] [address] [place] [address] PPO [id number] 2021 Medicare [id number] 2017 Unknown [id number] 1950 Unknown [id number] 1950 Unknown [id number] Social History Date Type Detail Facility Start: 02-09-2020 Never smoked t obacco (finding) [facility] Sex Assigned At Male [facility] Start: 08-12-2017 End: 04-06-2023 Tobacco smoking status NHIS Ex-smoker [facility] Work Phone: Start: 08-12-2017 End: 04-06-2023 Tobacco use and exposure Former smokeless tobacco user [facility] Work Phone: End: 08-12-2002 History of tobacco use User of smokeless tobacco [facility] Work Phone: Start: 02-10-2022 End: 04-06-2023 Alcohol intake Current drinker of alcohol (finding) [facility] Start: 02-10-2022 End: 04-06-2023 Alcohol intake [facility] Start: 04-04-2020 End: 07-14-2022 History SDOH Alcohol Frequency [address] [facility] Start: 04-04-2020 End: 07-14-2022 History SDOH Alcohol Std Drinks [address] [facility] Start: 10-06-2020 History SDOH Social Connections Phone [address] [facility] Start: 10-06-2020 End: 07-14-2022 History SDOH Social Connections Meetings [address] [facility] Start: 10-06-2020 End: 07-14-2022 History SDOH Physical Activity DPW [address] [facility] Start: 04-04-2020 End: 07-14-2022 History SDOH Financial [address] [facility] Start: 10-06-2020 Education [address] [facility] Start: 1950 Sex Assigned At Not on file [facility] Start: 01-31-2022 End: 10-06-2022 Exposure to SARS-CoV-2 (event) Not sure [facility] History of tobacco use Current smoker [facility] Work Phone: History of tobacco use Cigarette Smoker [facility] Work Phone: Start: 07-14-2022 End: 04-06-2023 Social connection and isolation panel [facility] Do you belong to any clubs or organizations such as worship groups, unions, fraternal or athletic groups, or school groups? Yes [facility] Are you now , , , , never or living with a partner? [facility] How often to you hav e a drink containing alcohol? 2-4 times a month [facility] How many standard dr inks containing alcohol do you have on a typical day? 1 or [address] [facility] How often do you hav e 6 or more drinks on 1 occasion? Never [facility] How hard is it for y ou to pay for the very basics like food, housing, medical care, and heating Not hard at all [facility] Do you feel stress - tense, restless, nervous, or anxious, or unable to sleep at night because your mind is troubled all the time - these days [OSQ] To some extent [facility] (I/We) worried love er (my/our) food would run out before (I/we) got money to buy more. Never true [facility] In the past 12 month s, was there a time when you were not able to pay the mortgage or rent on time? No [facility] Functional Status Date Assessment Result Facility 02-23-2023 Functional Status Home Living Ad ditional Information OBJECTIVE Posture: forward shoulder posture, slight forward head posture Gait: WNL with no AD Transfers: WNL Sensation: no abnormalities or asymmetries Reflexes: NT Edema: none Palpation: no pain at palpation of AC joint, bicipital groove. pain localized to touch as RTC ER insertion site Shoulder ROM: WNL - no deficits MMT: 5/5 grossly except 4/5 with flexion and abduction due to pain limiting Special Tests Park et al:RTC Painful Arc: pos Drop Arm: neg Infraspinatus Test: neg Belly press (subscap): neg Full Can (delt): neg Empty Can (impin): neg [facility] Clinical Notes 01-20-2017 to 05-06-2023 Telephone Encounter - Jessenia Ji - 05/06/2023 10:56 AM Mckenna Westbrook RDMS - 04/10/2023 9:00 AM EDTPatient InstructionsYael Lake MD - 04/06/2023 9:46 AM EDTPatient Instructions Note Date & Type Note Facility 05-06-2023 Miscellaneous Notes Patient has been identified by name and date of : Yes Last office visit in this department: 04/06/2023 RX INSTRUCTIONS: Patient aware RX will be sent to pharmacy. No need to notify patient. Patient phones requesting refills as follows: Requested Prescriptions Pending Prescriptions Disp Refills pantoprazole DR (PROTONIX) 40 mg tablet 90 tablet 3 Sig: Take 1 tablet by mouth once daily. sertraline (ZOLOFT) 100 mg tablet 90 tablet 1 Sig: Take 1 tablet by mouth once daily. Please review and advise. Jessenia Ji documented in this encounter [facility] 04-10-2023 History of Present illness Narrative Radiology Service Progress Note PATIENT NAME: Omkar Smith DATE OF SERVICE: April 10, 2023 TIME: 10:01 AM PATIENT IDENTITY VERIFICATION COMPLETED USING TWO (2) IDENTIFIERS: Name and Date of confirmed by patient verbally. FALL SCREENING: Has the patient had 2 falls in the last year or 1 fall with injury or currently using an Ambulatory Assistive Device (Walker, Cane, Wheelchair, Crutches, etc.)? No PATIENT GENDER DATA: Male PATIENT RELEVANT IMPLANT DATA REVIEWED: Not Applicable RADIOLOGY DEPARTMENT: Ultrasound PERIPHERAL IV DATA: Not applicable SIGNED BY: Mckenna Casey RDMS RVT April 10, 2023 10:01 AM documented in this encounter [facility] 04-06-2023 Note HNO ID: [id number] Author: Yael Lake MD Service: ? Author Type: Physician Type: Progress Notes Filed: 04/06/2023 3:18 PM Note Text: Chief Complaint Patient presents with: Follow Up HPI Omkar Smith is a 72 year old male who presents here today for Above Complaints. In good health without hospitalizations or ER visits. Patient complaining of left eye irritation which started about 2 weeks ago. Sleeps on his left side and when he wakes up the skin on the corner of his eye is irritated. Resolves <60 minutes after getting up. Has tried sleeping with pillow away from his eye. Not using any creams or ointments. No vision changes, eye pain/irritation, drainage, crusting. Reviewed recent labs with ASCVD risk >7.5%. Discussed statin which he is interested in starting. BPH: managed by Dr. Frank with last OV 2 months ago. Patient taking flomax on a daily basis and admits to weak stream and nocturia 2 times per night. Anxiety/Panic disorder improved with Zoloft daily and propranolol PRN. Father had AAA at age 70. Patient asking if he can be screened. Past medical history, appointments, medications, allergies reviewed. Previous Medical History PAST MEDICAL HISTORY Diagnosis Date Dysphagia seeing Dr. Doran Elevated PSA Dr. Frank Environmental allergies Seeing Dr. 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 Garcia Hypertrophy of prostate without urinary obstruction and other lower urinary tract symptoms (LUTS) Seeing Urology Internal hemorrhoids without mention of complication Melanoma (HCC) Seeing Dr. Olmos Panic disorder Personal history of colonic polyps Colon polyps Pure hypercholesterolemia Previous Surgical History PAST SURGICAL HISTORY Procedure Laterality Date COLONOSCOPY FLX DX W/COLLJ SPEC WHEN PFRMD 06/03/2000 Colonoscopy COLONOSCOPY FLX DX W/COLLJ SPEC WHEN PFRMD 12/30/2004 Colonoscopy COLONOSCOPY FLX DX W/COLLJ SPEC WHEN PFRMD 01/07/2010 COLONOSCOPY FLX DX W/COLLJ SPEC WHEN PFRMD 02/15/2015 Colonoscopy COLONOSCOPY FLX DX W/COLLJ SPEC WHEN PFRMD 12/02/2019 adenomatous polyp, repeat in 5 years DISKECTOMY, LUMBAR, SINGLE SP ESOPHAGOGASTRODUODENOSCOPY TRANSORAL DIAGNOSTIC 12/02/2019 mild gastritis and small hiatal hernia PAST SURGICAL HISTORY OF 2006 melanoma PAST SURGICAL HISTORY OF 6-9 years ago bilateral bunion suregery PAST SURGICAL HISTORY OF Left 05/03/2021 partial medial meniscectomy Family History FAMILY HISTORY Problem Relation Age of Onset Coronary Artery Disease Father Cancer Sister 40 colon Patient Allergies ALLERGIES Allergen Reactions Betadine [Povidone-* Rash rash Current Medications Current Outpatient Medications on File Prior to Visit Medication Sig sertraline (ZOLOFT) 100 mg tablet Take 1 tablet by mouth once daily. tamsulosin (FLOMAX) 0.4 mg Take 1 capsule by mouth daily at bedtime. propranolol (INDERAL) 20 mg tablet Take 1 tablet by mouth as needed (social/situation anxiety). calcium carbonate (CALTRATE) 600 mg calcium (1,500 mg) tab Take 600 mg by mouth. pantoprazole DR (PROTONIX) 40 mg tablet Take 1 tablet by mouth once daily. calcium carbonate/vitamin D3 (CALCIUM 600 + D ORAL) Take by mouth. diphenhydramine HCl (BENADRYL ORAL) Take by mouth daily at bedtime. Ferrous Sulfate (SLOW FE) 142 mg (45 mg iron) TbER Take 65 mg by mouth once daily. IBUPROFEN ORAL Take 500 mg by mouth. ergocalciferol(VITAMIN D 400 UNIT CAP) MULTIVITAMIN TAB Take one(1) tablet daily. ASPIRIN 81 MG TAB Take one (1) tablet daily . No current facility-administered medications on file prior to visit. Social History Social History Tobacco Use Smoking status: Former Smokeless tobacco: Former Quit date: 08/12/2002 Substance Use Topics Alcohol use: Yes Alcohol/week: 5.0 standard drinks Types: 2 Cans of Beer (12oz) per week Comment: occassional Drug use: No Review of Symptoms REVIEW OF SYSTEMS GENERAL: No weight loss, malaise or fevers RESPIRATORY: Negative for cough, hemoptysis, wheezing, COPD, dyspnea or shortness of breath CARDIOVASCULAR: Negative for chest pain, leg swelling, hypertension, CHF or palpitations GI: No nausea, vomiting, or diarrhea SKIN: See HPI EXAM: BP 112/66 Pulse (!) 52 Resp 16 SpO2 96% General Appearance: Well appearing, alert, in no acute distress, well-hydrated, well nourished.. Skin: mild inflammation/erythema at the lateral corner of left eye Eyes: Anicteric sclera. Pupils are equally round and reactive to light. Extraocular movements are intact. No pain with eye movement. Lungs: Lungs clear to auscultation. No wheezing, rhonchi, rales.. Heart: RRR without murmur, gallop, or rubs. No ectopy. Abdomen: Normal abdominal exam, Abdomen (more content not included)... [facility] 04-06-2023 Instructions Yael Lake MD - 04/06/2023 10:06 AM EDT Recheck labs in 3 months. documented in this encounter [facility] 04-06-2023 History of Present illness Narrative Chief Complaint Patient presents with: Follow Up HPI Omkar Smith is a 72 year old male who presents here today for Above Complaints. In good health without hospitalizations or ER visits. Patient complaining of left eye irritation which started about 2 weeks ago. Sleeps on his left side and when he wakes up the skin on the corner of his eye is irritated. Resolves <60 minutes after getting up. Has tried sleeping with pillow away from his eye. Not using any creams or ointments. No vision changes, eye pain/irritation, drainage, crusting. Reviewed recent labs with ASCVD risk >7.5%. Discussed statin which he is interested in starting. BPH: managed by Dr. Frank with last OV 2 months ago. Patient taking flomax on a daily basis and admits to weak stream and nocturia 2 times per night. Anxiety/Panic disorder improved with Zoloft daily and propranolol PRN. Father had AAA at age 70. Patient asking if he can be screened. Past medical history, appointments, medications, allergies reviewed. Previous Medical History PAST MEDICAL HISTORY Diagnosis Date Dysphagia seeing Dr. Doran Elevated PSA Dr. Frank Environmental allergies Seeing Dr. 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 Garcia Hypertrophy of prostate without urinary obstruction and other lower urinary tract symptoms (LUTS) Seeing Urology Internal hemorrhoids without mention of complication Melanoma (HCC) Seeing Dr. Olmos Panic disorder Personal history of colonic polyps Colon polyps Pure hypercholesterolemia Previous Surgical History PAST SURGICAL HISTORY Procedure Laterality Date COLONOSCOPY FLX DX W/COLLJ SPEC WHEN PFRMD 06/03/2000 Colonoscopy COLONOSCOPY FLX DX W/COLLJ SPEC WHEN PFRMD 12/30/2004 Colonoscopy COLONOSCOPY FLX DX W/COLLJ SPEC WHEN PFRMD 01/07/2010 COLONOSCOPY FLX DX W/COLLJ SPEC WHEN PFRMD 02/15/2015 Colonoscopy COLONOSCOPY FLX DX W/COLLJ SPEC WHEN PFRMD 12/02/2019 adenomatous polyp, repeat in 5 years DISKECTOMY, LUMBAR, SINGLE SP ESOPHAGOGASTRODUODENOSCOPY TRANSORAL DIAGNOSTIC 12/02/2019 mild gastritis and small hiatal hernia PAST SURGICAL HISTORY OF 2006 melanoma PAST SURGICAL HISTORY OF 6-9 years ago bilateral bunion suregery PAST SURGICAL HISTORY OF Left 05/03/2021 partial medial meniscectomy Family History FAMILY HISTORY Problem Relation Age of Onset Coronary Artery Disease Father Cancer Sister 40 colon Patient Allergies ALLERGIES Allergen Reactions Betadine [Povidone-* Rash rash Current Medications Current Outpatient Medications on File Prior to Visit Medication Sig sertraline (ZOLOFT) 100 mg tablet Take 1 tablet by mouth once daily. tamsulosin (FLOMAX) 0.4 mg Take 1 capsule by mouth daily at bedtime. propranolol (INDERAL) 20 mg tablet Take 1 tablet by mouth as needed (social/situation anxiety). calcium carbonate (CALTRATE) 600 mg calcium (1,500 mg) tab Take 600 mg by mouth. pantoprazole DR (PROTONIX) 40 mg tablet Take 1 tablet by mouth once daily. calcium carbonate/vitamin D3 (CALCIUM 600 + D ORAL) Take by mouth. diphenhydramine HCl (BENADRYL ORAL) Take by mouth daily at bedtime. Ferrous Sulfate (SLOW FE) 142 mg (45 mg iron) TbER Take 65 mg by mouth once daily. IBUPROFEN ORAL Take 500 mg by mouth. ergocalciferol(VITAMIN D 400 UNIT CAP) MULTIVITAMIN TAB Take one(1) tablet daily. ASPIRIN 81 MG TAB Take one (1) tablet daily . No current facility-administered medications on file prior to visit. Social History Social History Tobacco Use Smoking status: Former Smokeless tobacco: Former Quit date: 08/12/2002 Substance Use Topics Alcohol use: Yes Alcohol/week: 5.0 standard drinks Types: 2 Cans of Beer (12oz) per week Comment: occassional Drug use: No Review of Symptoms REVIEW OF SYSTEMS GENERAL: No weight loss, malaise or fevers RESPIRATORY: Negative for cough, hemoptysis, wheezing, COPD, dyspnea or shortness of breath CARDIOVASCULAR: Negative for chest pain, leg swelling, hypertension, CHF or palpitations GI: No nausea, vomiting, or diarrhea SKIN: See HPI EXAM: BP 112/66 Pulse (!) 52 Resp 16 SpO2 96% General Appearance: Well appearing, alert, in no acute distress, well-hydrated, well nourished.. Skin: mild inflammation/erythema at the lateral corner of left eye Eyes: Anicteric sclera. Pupils are equally round and reactive to light. Extraocular movements are intact. No pain with eye movement. Lungs: Lungs clear to auscultation. No wheezing, rhonchi, rales.. Heart: RRR without murmur, gallop, or rubs. No ectopy. Abdomen: Normal abdominal exam, Abdomen soft, non-tender. Bowel sounds normal. No masses, organomegaly. Extremities: No deformities, edema, skin discoloration, clubbing or cyanosis. Good capillary refill. . Health Maintenance List ADVANCE DIRECTIVE DISCUSSION Never done DEPRESSION ASSESSMENT Never done ANNUAL PCP TEAM CHRONIC DISEASE VISIT due on 10/06/2023 COLORECTAL CANCER SCREENING due on 12/02/2024 DIABETES SCREEN due on 04/01/2026 DTAP,TDAP,TD(2 - Td or Tdap) due on 11/17/2027 LIPID SCREEN due on 04/01/2028 ABDOMINAL AORTIC ANEURYSM SCREENING Completed INFLUENZA Completed HEPATITIS C SCREENING Completed SHINGRIX VACCINE Completed COVID-19 VACCINE Completed PNEUMOCOCCAL: 65+ Completed Data reviewed Component Latest Ref Rng & Units 04/25/2021 05/06/2022 04/01/2023 WBC 3.70 - 11.00 k/uL 4.93 4.97 RBC 4.20 - 6.00 m/uL 4.63 4.54 Hemoglobin 13.0 - 17.0 g/dL 14.3 14.4 Hematocrit 39.0 - 51.0 % 43.3 43.1 MCV 80.0 - 100.0 fL 93.5 94.9 MCH 26.0 - 34.0 pg 30.9 31.7 MCHC 30.5 - 36.0 g/dL 33.0 33.4 RDW-CV 11.5 - 15.0 % 13.3 13.4 Platelet Count 150 - 400 k/uL 185 207 MPV 9.0 - 12.7 fL 9.9 10.5 Neut% % 54.0 Abs Neut (ANC) 1.45 - 7.50 k/uL 2.68 Lymph% % 33.6 Abs Lymph 1.00 - 4.00 k/uL 1.67 Foard% % 8.2 Abs Foard <0.87 k/uL 0.41 Eosin% % 3.0 Abs Eosin <0.46 k/uL 0.15 Baso% % 1.0 Abs Baso <0.11 k/uL 0.05 Immature Gran % % 0.2 IMMATURE GRANS (ABS) <0.10 k/uL <0.03 NRBC /100 WBC 0.0 Absolute nRBC <0.01 k/uL <0.01 <0.01 DTYPE Auto Protein, Total 6.3 - 8.0 g/dL 6.9 6.6 Albumin 3.9 - 4.9 g/dL 4.2 4.4 Calcium 8.5 - 10.2 mg/dL 9.5 9.9 9.0 Bilirubin, Total 0.2 - 1.3 mg/dL 0.3 0.5 Alkaline Phosphatase 38 - 113 U/L 49 51 AST 14 - 40 U/L 23 29 ALT 10 - 54 U/L 23 42 Glucose 74 - 99 mg/dL 99 114 (H) 96 BUN 9 - 24 mg/dL 18 12 16 Creatinine 0.73 - 1.22 mg/dL 0.87 0.82 0.79 Sodium 136 - 144 mmol/L 139 139 141 Potassium 3.7 - 5.1 mmol/L 4.6 3.8 4.5 Chloride 97 - 105 mmol/L 102 104 104 CO2 22 - 30 mmol/L 29 27 30 Anion Gap 9 - 18 mmol/L 8 (L) 8 (L) 7 (L) eGFR >=60 mL/min/1.73m 94 96 eGFR- >60 eGFR-All Other Races . >60 Cholesterol, Total <200 mg/dL 163 183 Triglyceride <150 mg/dL 120 72 HDL Cholesterol >39 mg/dL 57 67 LDL Cholesterol <100 mg/dL 82 102 (H) Non HDL Cholesterol <130 mg/dL 106 116 Fasting Time hrs 13 10 VLDL Cholesterol <30 mg/dL 24 14 TC:HDL Ratio <5.10 2.86 2.73 LDL:HDL Ratio <2.54 1.44 1.52 Bilirubin, Conjug <0.2 mg/dL <0.2 The 10-year ASCVD risk score ([place] SCHMID, et al., 2019) is: 12.3% Values used to calculate the score: Age: 72 years Sex: Male Is Non- : No Diabetic: No Tobacco smoker: No Systolic Blood Pressure: 112 mmHg Is BP treated: No HDL Cholesterol: 67 mg/dL Total Cholesterol: 183 mg/dL ASSESSMENT/PLAN: 1. Skin irritation - ICD9: 709.9, ICD10: R23.8 (primary diagnosis) Mild irritation near his eye. Discussed unscented lotion BID and hydrocortisone PRN for itching. 2. Elevated LDL cholesterol level - ICD9: 272.0, ICD10: E78.00 Start statin to reduce risk of PR and stroke. Recheck labs in 3 months. - LIPID PANEL, NONFASTING - COMP METABOLIC PANEL 3. BPH with obstruction/lower urinary tract symptoms - ICD9: 600.01, 599.69, ICD10: N40.1, N13.8 Improved on current regimen. F/u with urology. 4. SHEA (generalized anxiety disorder) - ICD9: 300.02, ICD10: F41.1 Improved with zoloft and propranolol PRN for panic. 5. Panic disorder - ICD9: 300.01, ICD10: F41.0 See above. 6. Benign essential tremor - ICD9: 333.1, ICD10: G25.0 Improved with propranolol. 7. Family history of abdominal aortic aneurysm (AAA) - ICD9: V17.49, ICD10: Z82.49 Will screen due to family history. - US SCREENING FOR AAA 8. Hyperthyroidism - ICD9: 242.90, ICD10: E05.90 Recommendations per endo. 9. Malignant melanoma of skin of trunk, except scrotum (HCC) - ICD9: 172.5, ICD10: C43.59 No new lesions. Follow up with dermatology yearly as scheduled. Yael Lake MD documented in this encounter [facility] 10-06-2022 Note HNO ID: [id number] Author: Yael Lake MD Service: ? Author Type: Physician Type: Progress Notes Filed: 10/06/2022 10:11 AM Note Text: Chief Complaint Patient presents with: Follow Up: 3 month hand tremors x for last 3-4 weeks HPI Omkar Smith is a 72 year old male who presents here today for 3 month follow up on anxiety. Increased patient's zoloft and added propranolol to regimen at last OV for uncontrolled anxiety with following HPI: Patient states he stopped his Zoloft about 2 weeks ago because his anxiety symptoms were uncontrolled on 50 mg. Did not have side effects on this medication. With his recent trip to the [facility], he was having panic symptoms anytime he was in the car on unfamiliar roads. Does not have problem driving in [facility]. Denies excessive worrying, racing thoughts, inability to control worrying, insomnia, difficiulty concentrating, irritability since he stopped the Zoloft. Not seeing counselor at this time. Since changing his reigmen, states he has not been on any long trips in the car. Has used propranolol for short trips which did seem to help some. No recent panic symptoms or side effects. Would like to remain on this regimen. Complaining today of some shaking while eating out at the [employer] about 3-4 weeks ago. Notes intermittent symptoms about 2 times per week and is worse when he is around groups of people. Does not get resting tremor, postural instability, moving/speaking slowly. Past medical history, appointments, medications, allergies reviewed. Previous Medical History PAST MEDICAL HISTORY Diagnosis Date Dysphagia seeing Dr. Doran Elevated PSA Dr. Frank Environmental allergies Seeing Dr. 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 Garcia Hypertrophy of prostate without urinary obstruction and other lower urinary tract symptoms (LUTS) Seeing Urology Internal hemorrhoids without mention of complication Melanoma (HCC) Seeing Dr. Olmos Panic disorder Personal history of colonic polyps Colon polyps Pure hypercholesterolemia Previous Surgical History PAST SURGICAL HISTORY Procedure Laterality Date COLONOSCOPY FLX DX W/COLLJ SPEC WHEN PFRMD 06/03/2000 Colonoscopy COLONOSCOPY FLX DX W/COLLJ SPEC WHEN PFRMD 12/30/2004 Colonoscopy COLONOSCOPY FLX DX W/COLLJ SPEC WHEN PFRMD 01/07/2010 COLONOSCOPY FLX DX W/COLLJ SPEC WHEN PFRMD 02/15/2015 Colonoscopy COLONOSCOPY FLX DX W/COLLJ SPEC WHEN PFRMD 12/02/2019 adenomatous polyp, repeat in 5 years DISKECTOMY, LUMBAR, SINGLE SP ESOPHAGOGASTRODUODENOSCOPY TRANSORAL DIAGNOSTIC 12/02/2019 mild gastritis and small hiatal hernia PAST SURGICAL HISTORY OF 2006 melanoma PAST SURGICAL HISTORY OF 6-9 years ago bilateral bunion suregery PAST SURGICAL HISTORY OF Left 05/03/2021 partial medial meniscectomy Family History FAMILY HISTORY Problem Relation Age of Onset Coronary Artery Disease Father Cancer Sister 40 colon Patient Allergies ALLERGIES Allergen Reactions Betadine [Povidone-* Rash Current Medications Current Outpatient Medications on File Prior to Visit Medication Sig sertraline (ZOLOFT) 100 mg tablet Take 1 tablet by mouth once daily. propranolol (INDERAL) 20 mg tablet Take 1 tablet by mouth as needed (social/situation anxiety). calcium carbonate (CALTRATE) 600 mg calcium (1,500 mg) tab Take 600 mg by mouth. tamsulosin (FLOMAX) 0.4 mg Take 1 capsule by mouth daily at bedtime. pantoprazole DR (PROTONIX) 40 mg tablet Take 1 tablet by mouth once daily. finasteride (PROSCAR) 5 mg tablet Take 1 tablet by mouth once daily. calcium carbonate/vitamin D3 (CALCIUM 600 + D ORAL) Take by mouth. diphenhydramine HCl (BENADRYL ORAL) Take by mouth daily at bedtime. Ferrous Sulfate (SLOW FE) 142 mg (45 mg iron) TbER Take 65 mg by mouth once daily. IBUPROFEN ORAL Take 500 mg by mouth. ergocalciferol(VITAMIN D 400 UNIT CAP) MULTIVITAMIN TAB Take one(1) tablet daily. ASPIRIN 81 MG TAB Take one (1) tablet daily . No current facility-administered medications on file prior to visit. Social History Social History Tobacco Use Smoking status: Former Smokeless tobacco: Former Quit date: 08/12/2002 Substance Use Topics Alcohol use: Yes Alcohol/week: 5.0 standard drinks Types: 2 Cans of Beer (12oz) per week Comment: occassional Drug use: No Review of Symptoms REVIEW OF SYSTEMS GENERAL: No weight loss, malaise or fevers RESPIRATORY: Negative for cough, hemoptysis, wheezing, COPD, dyspnea or shortness of breath CARDIOVASCULAR: Negative for chest pain, leg swelling, hypertension, CHF or palpitations GI: No nausea, vomiting, or diarrhea EXAM: BP 104/68 Pulse (!) 59 Resp 16 Wt 84.3 kg (185 lb 12.8 oz) SpO2 9 (more content not included)... [facility] 10-06-2022 History of Present illness Narrative Chief Complaint Patient presents with: Follow Up: 3 month hand tremors x for last 3-4 weeks HPI Omkar Smith is a 72 year old male who presents here today for 3 month follow up on anxiety. Increased patient's zoloft and added propranolol to regimen at last OV for uncontrolled anxiety with following HPI: Patient states he stopped his Zoloft about 2 weeks ago because his anxiety symptoms were uncontrolled on 50 mg. Did not have side effects on this medication. With his recent trip to the [facility], he was having panic symptoms anytime he was in the car on unfamiliar roads. Does not have problem driving in [facility]. Denies excessive worrying, racing thoughts, inability to control worrying, insomnia, difficiulty concentrating, irritability since he stopped the Zoloft. Not seeing counselor at this time. Since changing his reigmen, states he has not been on any long trips in the car. Has used propranolol for short trips which did seem to help some. No recent panic symptoms or side effects. Would like to remain on this regimen. Complaining today of some shaking while eating out at the [employer] about 3-4 weeks ago. Notes intermittent symptoms about 2 times per week and is worse when he is around groups of people. Does not get resting tremor, postural instability, moving/speaking slowly. Past medical history, appointments, medications, allergies reviewed. Previous Medical History PAST MEDICAL HISTORY Diagnosis Date Dysphagia seeing Dr. Doran Elevated PSA Dr. Frank Environmental allergies Seeing Dr. 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 Garcia Hypertrophy of prostate without urinary obstruction and other lower urinary tract symptoms (LUTS) Seeing Urology Internal hemorrhoids without mention of complication Melanoma (HCC) Seeing Dr. Olmos Panic disorder Personal history of colonic polyps Colon polyps Pure hypercholesterolemia Previous Surgical History PAST SURGICAL HISTORY Procedure Laterality Date COLONOSCOPY FLX DX W/COLLJ SPEC WHEN PFRMD 06/03/2000 Colonoscopy COLONOSCOPY FLX DX W/COLLJ SPEC WHEN PFRMD 12/30/2004 Colonoscopy COLONOSCOPY FLX DX W/COLLJ SPEC WHEN PFRMD 01/07/2010 COLONOSCOPY FLX DX W/COLLJ SPEC WHEN PFRMD 02/15/2015 Colonoscopy COLONOSCOPY FLX DX W/COLLJ SPEC WHEN PFRMD 12/02/2019 adenomatous polyp, repeat in 5 years DISKECTOMY, LUMBAR, SINGLE SP ESOPHAGOGASTRODUODENOSCOPY TRANSORAL DIAGNOSTIC 12/02/2019 mild gastritis and small hiatal hernia PAST SURGICAL HISTORY OF 2006 melanoma PAST SURGICAL HISTORY OF 6-9 years ago bilateral bunion suregery PAST SURGICAL HISTORY OF Left 05/03/2021 partial medial meniscectomy Family History FAMILY HISTORY Problem Relation Age of Onset Coronary Artery Disease Father Cancer Sister 40 colon Patient Allergies ALLERGIES Allergen Reactions Betadine [Povidone-* Rash Current Medications Current Outpatient Medications on File Prior to Visit Medication Sig sertraline (ZOLOFT) 100 mg tablet Take 1 tablet by mouth once daily. propranolol (INDERAL) 20 mg tablet Take 1 tablet by mouth as needed (social/situation anxiety). calcium carbonate (CALTRATE) 600 mg calcium (1,500 mg) tab Take 600 mg by mouth. tamsulosin (FLOMAX) 0.4 mg Take 1 capsule by mouth daily at bedtime. pantoprazole DR (PROTONIX) 40 mg tablet Take 1 tablet by mouth once daily. finasteride (PROSCAR) 5 mg tablet Take 1 tablet by mouth once daily. calcium carbonate/vitamin D3 (CALCIUM 600 + D ORAL) Take by mouth. diphenhydramine HCl (BENADRYL ORAL) Take by mouth daily at bedtime. Ferrous Sulfate (SLOW FE) 142 mg (45 mg iron) TbER Take 65 mg by mouth once daily. IBUPROFEN ORAL Take 500 mg by mouth. ergocalciferol(VITAMIN D 400 UNIT CAP) MULTIVITAMIN TAB Take one(1) tablet daily. ASPIRIN 81 MG TAB Take one (1) tablet daily . No current facility-administered medications on file prior to visit. Social History Social History Tobacco Use Smoking status: Former Smokeless tobacco: Former Quit date: 08/12/2002 Substance Use Topics Alcohol use: Yes Alcohol/week: 5.0 standard drinks Types: 2 Cans of Beer (12oz) per week Comment: occassional Drug use: No Review of Symptoms REVIEW OF SYSTEMS GENERAL: No weight loss, malaise or fevers RESPIRATORY: Negative for cough, hemoptysis, wheezing, COPD, dyspnea or shortness of breath CARDIOVASCULAR: Negative for chest pain, leg swelling, hypertension, CHF or palpitations GI: No nausea, vomiting, or diarrhea EXAM: BP 104/68 Pulse (!) 59 Resp 16 Wt 84.3 kg (185 lb 12.8 oz) SpO2 97% BMI 25.91 kg/m General Appearance: Well appearing, alert, in no acute distress, well-hydrated, well nourished.. Skin: Skin color, texture, turgor normal, no suspicious rashes or lesions. Lungs: Lungs clear to auscultation. No wheezing, rhonchi, rales.. Heart: RRR without murmur, gallop, or rubs. No ectopy. Abdomen: Normal abdominal exam, Abdomen soft, non-tender. Bowel sounds normal. No masses, organomegaly. Extremities: No deformities, edema, skin discoloration, clubbing or cyanosis. Good capillary refill. . Neurologic: Negative findings: cranial nerves 2-12 grossly intact, mild tremor with finger to nose. Positive for mild tremor with outstretched hands Health Maintenance List ADVANCE DIRECTIVE DISCUSSION Never done DEPRESSION ASSESSMENT Never done ANNUAL PCP TEAM CHRONIC DISEASE VISIT due on 07/15/2023 COLORECTAL CANCER SCREENING due on 12/02/2024 DIABETES SCREEN due on 05/06/2025 LIPID SCREEN due on 04/25/2026 DTAP,TDAP,TD(2 - Td or Tdap) due on 11/17/2027 ABDOMINAL AORTIC ANEURYSM SCREENING Completed INFLUENZA Completed HEPATITIS C SCREENING Completed SHINGRIX VACCINE Completed COVID-19 VACCINE Completed PNEUMOCOCCAL: 65+ Completed Data reviewed Component Latest Ref Rng & Units 05/06/2022 Protein, Total 6.3 - 8.0 g/dL 6.9 Albumin 3.9 - 4.9 g/dL 4.2 Calcium 8.5 - 10.2 mg/dL 9.9 Bilirubin, Total 0.2 - 1.3 mg/dL 0.3 Alkaline Phosphatase 38 - 113 U/L 49 AST 14 - 40 U/L 23 ALT 10 - 54 U/L 23 Glucose 74 - 99 mg/dL 114 (H) BUN 9 - 24 mg/dL 12 Creatinine 0.73 - 1.22 mg/dL 0.82 Sodium 136 - 144 mmol/L 139 Potassium 3.7 - 5.1 mmol/L 3.8 Chloride 97 - 105 mmol/L 104 CO2 22 - 30 mmol/L 27 Anion Gap 9 - 18 mmol/L 8 (L) eGFR >=60 mL/min/1.73m 94 Bilirubin, Conjug <0.2 mg/dL <0.2 ASSESSMENT/PLAN: 1. SHEA (generalized anxiety disorder) - ICD9: 300.02, ICD10: F41.1 (primary diagnosis) Symptoms improved on current regimen without side effects. Refusing counseling. Continue propranolol PRN and advised he should use before his next meal out with group of people. Cut back on caffeine use. Red flags for re-assessment reviewed with patient in detail. F/u in 6 months. - SERTRALINE 100 MG TABLET - PROPRANOLOL 20 MG TABLET 2. Situational anxiety - ICD9: 300.09, ICD10: F41.8 3. BPH with obstruction/lower urinary tract symptoms - ICD9: 600.01, 599.69, ICD10: N40.1, N13.8 Requesting refill. - FINASTERIDE 5 MG TABLET 4. Benign essential tremor - ICD9: 333.1, ICD10: G25.0 See above. Yael Lake MD documented in this encounter [facility] 07-15-2022 Note HNO ID: [id number] Author: Landon Hurst APRN.HOISTMAN Service: ? Author Type: Nurse Practitioner Type: Progress Notes Filed: 07/15/2022 12:35 PM Note Text: Telemedicine Evaluation for COVID-19 Infection MyChart video visit was used for evaluation of this patient. Location of patient: [facility] Omkar Smith is a 72 year old male who presents with 3 days of symptoms that are stable. Positive COVID-19 home test yesterday Symptoms include: Fever (?100.4F): No or Chills: No Cough: Yes Shortness of breath: No or Difficulty breathing: No Fatigue: Yes Muscle aches: No Headache: Yes New loss of smell or taste: No Sore throat: Yes Nasal congestion: No or Rhinorrhea: No Nausea: No or Vomiting: No Diarrhea: No OTC meds/remedies that patient has tried: acetaminophen. High risk category assessment Age > 60 years old Exposures: Sick contacts? No Family or close contacts with confirmed/probable COVID-19 in last 14 days? No He reports that he has quit smoking. He quit smokeless tobacco use about 19 years ago. OBJECTIVE VIDEO EXAM (if available) GENERAL: well appearing, alert, in no acute distress HEENT: PULMONARY: breathing comfortably on room air , no coughing noted, no wheezing noted, and able to speak in full sentences without difficulty ASSESSMENT/PLAN 1. Telehealth encounter for confirmed COVID-19 - ICD9: 079.89, ICD10: U07.1 - no red flag symptoms or exam findings - red flag symptoms discussed, verbalizes understanding - may use OTC cough and cold medications for symptoms as indicated on packaging - current CDC guidelines isolation guidelines discussed, verbalizes understanding - NIRMATRELVIR 300 MG (150 MG X2)-RITONAVIR 100 MG TABLET,DOSE PACK(EUA) common side effects, risks, benefits and EUA discussed with patient, verbalizes understanding Landon Hurst APRN.HOISTMAN Prescription instructions reviewed with patient as applicable. Patient advised if symptoms do not improve or if symptoms worsen sooner, to contact their primary care physician. Potential red flag symptoms discussed with the patient. Reviewed appropriate action plan to take if red flag symptoms occur. Patient agreeable to treatment plan. Nirmatrelvir/Ritonavir (Paxlovid) Eligibility and Patient Discussion [facility] Formulary Restriction Criteria: Adult outpatients 18 years and older with ALL of the following: [x] Patient has positive SARS-COV-2 viral test (PCR or antigen test) during current illness [x] Patient has symptoms for 5 days or less [x] Not requiring hospitalization at any time for management of COVID-19 [x] Not requiring supplemental oxygen or a change in baseline supplemental oxygen [x] Not utilized for pre-exposure or post-exposure prophylaxis for prevention of COVID-19 [x] Patient does not have severe renal impairment (eGFR < 30 mL/min) or severe hepatic impairment (Child-Perez Class C) [x] Meeting at least one of the criteria for high risk of progression to severe COVID-19: [x] Age over 65 years [] Cancer [] Chronic kidney disease [] Chronic liver disease [] Chronic lung diseases, including cystic fibrosis [] Dementia or other neurological conditions [] Diabetes (type 1 or type 2) [] Disabilities, including Down syndrome and neurodevelopmental disorders [] Heart conditions [] HIV infection [] Immunocompromised state [] Mental health conditions [] Medical related technological dependence (tracheostomy, gastrostomy, or positive pressure ventilation (not related to COVID) [] Overweight and obesity (BMI greater or equal to 25 for adults) [] Physical inactivity [] [] Sickle cell disease or thalassemia [x] Smoking, current or former [] Solid organ or blood stem cell transplant [] Stroke or cerebrovascular disease [] Substance use disorders [] Tuberculosis [] People from racial and ethnic minority groups Criteria above are met: Yes Date of Positive Test: Date of Symptom Onset: 07/13/2022 Patient received COVID vaccine: Yes Drug-Drug interactions reviewed: Yes. Drug interactions were identified and the following actions were taken Flomax to be held while taking paxlovid. Patient verbalizes understanding to hold medication while he is taking I have discussed the use of the investigational therapeutic, nirmatrelvir/ritonavir, for the treatment of mild to moderate COVID-19 and its use under Emergency Use Authorization with the patient. The patient was informed that nirmatrelvir/ritonavir is not an FDA approved drug and that it is authorized for use under this Emergency Use Authorization. The patient was also informed of the significant known benefits and potential risks of nirmatrelvir/ritonavir, and the extent to which such potential risks and benefits are unknown. The patient was informed that there is mandatory reporting of all medication errors and serious adverse events potentially related to (more content not included)... [place] [id number] Instructions Landon Hurst APRN.HOISTMAN - 07/15/2022 9:03 AM EDT FACT SHEET FOR PATIENTS, PARENTS, AND CAREGIVERS EMERGENCY USE AUTHORIZATION (EUA) OF PAXLOVID FOR CORONAVIRUS DISEASE 2019 (COVID-19) You are being given this Fact Sheet because your healthcare provider believes it is necessary to provide you with PAXLOVID for the treatment of jxoh-xn-bltflxur coronavirus disease (COVID-19) caused by the SARS-CoV-2 virus. This Fact Sheet contains information to help you understand the risks and benefits of taking the PAXLOVID you have received or may receive. The [place].S. Food and Drug Administration (FDA) has issued an Emergency Use Authorization (EUA) to make PAXLOVID available during the COVID-19 pandemic (for more details about an EUA please see What is an Emergency Use Authorization? at the end of this document). PAXLOVID is not an FDA-approved medicine in the [place]. Read this Fact Sheet for information about PAXLOVID. Talk to your healthcare provider about your options or if you have any questions. It is your choice to take PAXLOVID. What is COVID-19? COVID-19 is caused by a virus called a coronavirus. You can get COVID-19 through close contact with another person who has the virus. COVID-19 illnesses have ranged from very isex-uq-emybrj, including illness resulting in . While information so far suggests that most COVID-19 illness is mild, serious illness can happen and may cause some of your other medical conditions to become worse. Older people and people of all ages with severe, long lasting (chronic) medical conditions like heart disease, lung disease, and diabetes, for example seem to be at higher risk of being hospitalized for COVID-19. What is PAXLOVID? PAXLOVID is an investigational medicine used to treat xwha-gj-hphotdvr COVID-19 in adults and children [12 years of age and older weighing at least 88 pounds (40 kg)] with positive results of direct SARS-CoV-2 viral testing, and who are at high risk for progression to severe COVID-19, including hospitalization or . PAXLOVID is investigational because it is still being studied. There is limited information about the safety and effectiveness of using PAXLOVID to treat people with pcjc-iq-eefzpont COVID-19. The FDA has authorized the emergency use of PAXLOVID for the treatment of affc-mg-scgoaugs COVID-19 in adults and children [12 years of age and older weighing at least 88 pounds (40 kg)] with a positive test for the virus that causes COVID-19, and who are at high risk for progression to severe COVID-19, including hospitalization or , under an EUA. 1 Revised: 07 February 2022 What should I tell my healthcare provider before I take PAXLOVID? Tell your healthcare provider if you: Have any allergies Have liver or kidney disease Are or plan to become Are a child Have any serious illnesses Tell your healthcare provider about all the medicines you take, including prescription and hlgr-rxu-gfqtbup medicines, vitamins, and herbal supplements. Some medicines may interact with PAXLOVID and may cause serious side effects. Keep a list of your medicines to show your healthcare provider and pharmacist when you get a new medicine. You can ask your healthcare provider or pharmacist for a list of medicines that interact with PAXLOVID. Do not start taking a new medicine without telling your healthcare provider. Your healthcare provider can tell you if it is safe to take PAXLOVID with other medicines. Tell your healthcare provider if you are taking combined hormonal contraceptive. PAXLOVID may affect how your control pills work. Females who are able to become should use another effective alternative form of contraception or an additional barrier method of contraception. Talk to your healthcare provider if you have any questions about contraceptive methods that might be right for you. How do I take PAXLOVID? PAXLOVID consists of 2 medicines: nirmatrelvir and ritonavir. Take 2 pink tablets of nirmatrelvir with 1 white tablet of ritonavir by mouth 2 times each day (in the morning and in the evening) for 5 days. For each dose, take all 3 tablets at the same time. If you have kidney disease, talk to your healthcare provider. You may need a different dose. Swallow the tablets whole. Do not chew, break, or crush the tablets. Take PAXLOVID with or without food. Do not stop taking PAXLOVID without talking to your healthcare provider, even if you feel better. If you miss a dose of PAXLOVID within 8 hours of the time it is usually taken, take it as soon as you remember. If you miss a dose by more than 8 hours, skip the missed dose and take the next dose at your regular time. Do not take 2 doses of PAXLOVID at the same time. If you take too much PAXLOVID, call your healthcare provider or go to the nearest hospital emergency room right away. If you are taking a ritonavir-or cobicistat-containing medicine to treat hepatitis C or Human Immunodeficiency Virus (HIV), you should continue to take your medicine as prescribed by your healthcare provider. Talk to your healthcare provider if you do not feel better or if you feel worse after 5 days. Who should generally not take PAXLOVID? Do not take PAXLOVID if: You are allergic to nirmatrelvir, ritonavir, or any of the ingredients in PAXLOVID You are taking any of the following medicines: Alfuzosin Pethidine, propoxyphene Ranolazine Amiodarone, dronedarone, flecainide, propafenone, quinidine Colchicine Lurasidone, pimozide, clozapine Dihydroergotamine, ergotamine, methylergonovine Lovastatin, simvastatin Sildenafil (Revatio ) for pulmonary arterial hypertension (PAH) Triazolam, oral midazolam Apalutamide Carbamazepine, phenobarbital, phenytoin Rifampin Jose s Wort (hypericum perforatum) Taking PAXLOVID with these medicines may cause serious or life-threatening side effects or affect how PAXLOVID works. These are not the only medicines that may cause serious side effects if taken with PAXLOVID. PAXLOVID may increase or decrease the levels of multiple other medicines. It is very important to tell your healthcare provider about all of the medicines you are taking because additional laboratory tests or changes in the dose of your other medicines may be necessary while you are taking PAXLOVID. Your healthcare provider may also tell you about specific symptoms to watch out for that may indicate that you need to stop or decrease the dose of some of your other medicines. What are the important possible side effects of PAXLOVID? Possible side effects of PAXLOVID are: Allergic Reactions. Allergic reactions can happen in people taking PAXLOVID, even after only 1 dose. Stop taking PAXLOVID and call your healthcare provider right away if you get any of the following symptoms of an allergic reaction: hives trouble swallowing or breathing swelling of the mouth, lips, or face throat tightness hoarseness skin rash Liver Problems. Tell your healthcare provider right away if you have any of these signs and symptoms of liver problems: loss of appetite, yellowing of your skin and the whites of eyes (jaundice), dark-colored urine, pale colored stools and itchy skin, stomach area (abdominal) pain. Resistance to HIV Medicines. If you have untreated HIV infection, PAXLOVID may lead to some HIV medicines not working as well in the future. Other possible side effects include: altered sense of taste diarrhea high blood pressure muscle aches These are not all the possible side effects of PAXLOVID. Not many people have taken PAXLOVID. Serious and unexpected side effects may happen. PAXLOVID is still being studied, so it is possible that all of the risks are not known at this time. What other treatment choices are there? Veklury (remdesivir) is FDA-approved for the treatment of hlmh-fz-xovjnmcx COVID-19 in certain adults and children. Talk with your doctor to see if Veklury is appropriate for you. Like PAXLOVID, FDA may also allow for the emergency use of other medicines to treat people with COVID-19. Go to https://www.fda.gov/emergency-prepared ness-andresponse/ydd-aunnp-uzoitdzubz- hpm-hmiqbl-cotugrclx/fidxaqmlq-yho-ppe horization for information on the emergency use of other medicines that are authorized by FDA to treat people with COVID-19. Your healthcare provider may talk with you about clinical trials for which you may be eligible. It is your choice to be treated or not to be treated with PAXLOVID. Should you decide not to receive it or for your child not to receive it, it will not change your standard medical care. What if I am or ? There is biochemistry technologist treating women or mothers with PAXLOVID. For a mother and unborn baby, the benefit of taking PAXLOVID may be greater than the risk from the treatment. If you are , discuss your options and specific situation with your healthcare provider. It is recommended that you use effective barrier contraception or do not have sexual activity while taking PAXLOVID. If you are , discuss your options and specific situation with your healthcare provider. How do I report side effects with PAXLOVID? Contact your healthcare provider if you have any side effects that bother you or do not go away. Report side effects to FDA MedWatch at www.fda.gov/medwatch or call 8-537-HVW8468 or you can report side effects to [employer]. at the contact information provided below. Website Fax number Telephone number [employer] How should I store PAXLOVID? Store PAXLOVID tablets at room temperature, between 68?F to 77?F (20?C to 25?C). How can I learn more about COVID-19? Ask your healthcare provider. Visit https://www.cdc.gov/COVID19. Contact your local or state public health department. What is an Emergency Use Authorization (EUA)? The [place] FDA has made PAXLOVID available under an emergency access mechanism called an Emergency Use Authorization (EUA). The EUA is supported by a [place] of Health and Human Service (HHS) declaration that circumstances exist to justify the emergency use of drugs and biological products during the COVID-19 pandemic. PAXLOVID for the treatment of zfca-ki-idffsbhd COVID-19 in adults and children [12 years of age and older weighing at least 88 pounds (40 kg)] with positive results of direct SARS-CoV-2 viral testing, and who are at high risk for progression to severe COVID-19, including hospitalization or , has not undergone the same type of review as an FDA-approved product. In issuing an EUA under the COVID-19 public health emergency, the FDA has determined, among other things, that based on the total amount of scientific evidence available including data from adequate and well-controlled clinical trials, if available, it is reasonable to believe that the product may be effective for diagnosing, treating, or preventing COVID-19, or a serious or life-threatening disease or condition caused by COVID-19; that the known and potential benefits of the product, when used to diagnose, treat, or prevent such disease or condition, outweigh the known and potential risks of such product; and that there are no adequate, approved, and available alternatives. All of these criteria must be met to allow for the product to be used in the treatment of patients during the COVID-19 pandemic. The EUA for PAXLOVID is in effect for the duration of the COVID-19 declaration justifying emergency use of this product, unless terminated or revoked (after which the products may no longer be used under the EUA). Additional Information For general questions, visit the website or call the telephone number provided below. Website Telephone number [employer] (1-621-D21-OTDT) You can also go to [email or web address] or call for more information. Pfizer Distributed by [employer] [place] [address] [id number] Revised: 07 February 2022 documented in this encounter [facility] 07-15-2022 History of Present illness Narrative Telemedicine Evaluation for COVID-19 Infection MyChart video visit was used for evaluation of this patient. Location of patient: [facility] Omkar Smith is a 72 year old male who presents with 3 days of symptoms that are stable. Positive COVID-19 home test yesterday Symptoms include: Fever (?100.4F): No or Chills: No Cough: Yes Shortness of breath: No or Difficulty breathing: No Fatigue: Yes Muscle aches: No Headache: Yes New loss of smell or taste: No Sore throat: Yes Nasal congestion: No or Rhinorrhea: No Nausea: No or Vomiting: No Diarrhea: No OTC meds/remedies that patient has tried: acetaminophen. High risk category assessment Age > 60 years old Exposures: Sick contacts? No Family or close contacts with confirmed/probable COVID-19 in last 14 days? No He reports that he has quit smoking. He quit smokeless tobacco use about 19 years ago. OBJECTIVE VIDEO EXAM (if available) GENERAL: well appearing, alert, in no acute distress HEENT: PULMONARY: breathing comfortably on room air , no coughing noted, no wheezing noted, and able to speak in full sentences without difficulty ASSESSMENT/PLAN 1. Telehealth encounter for confirmed COVID-19 - ICD9: 079.89, ICD10: U07.1 - no red flag symptoms or exam findings - red flag symptoms discussed, verbalizes understanding - may use OTC cough and cold medications for symptoms as indicated on packaging - current CDC guidelines isolation guidelines discussed, verbalizes understanding - NIRMATRELVIR 300 MG (150 MG X2)-RITONAVIR 100 MG TABLET,DOSE PACK(EUA) common side effects, risks, benefits and EUA discussed with patient, verbalizes understanding Landon Hurst APRN.HOISTMAN Prescription instructions reviewed with patient as applicable. Patient advised if symptoms do not improve or if symptoms worsen sooner, to contact their primary care physician. Potential red flag symptoms discussed with the patient. Reviewed appropriate action plan to take if red flag symptoms occur. Patient agreeable to treatment plan. Nirmatrelvir/Ritonavir (Paxlovid) Eligibility and Patient Discussion [facility] Formulary Restriction Criteria: Adult outpatients 18 years and older with ALL of the following: [x] Patient has positive SARS-COV-2 viral test (PCR or antigen test) during current illness [x] Patient has symptoms for 5 days or less [x] Not requiring hospitalization at any time for management of COVID-19 [x] Not requiring supplemental oxygen or a change in baseline supplemental oxygen [x] Not utilized for pre-exposure or post-exposure prophylaxis for prevention of COVID-19 [x] Patient does not have severe renal impairment (eGFR < 30 mL/min) or severe hepatic impairment (Child-Perez Class C) [x] Meeting at least one of the criteria for high risk of progression to severe COVID-19: [x] Age over 65 years [] Cancer [] Chronic kidney disease [] Chronic liver disease [] Chronic lung diseases, including cystic fibrosis [] Dementia or other neurological conditions [] Diabetes (type 1 or type 2) [] Disabilities, including Down syndrome and neurodevelopmental disorders [] Heart conditions [] HIV infection [] Immunocompromised state [] Mental health conditions [] Medical related technological dependence (tracheostomy, gastrostomy, or positive pressure ventilation (not related to COVID) [] Overweight and obesity (BMI greater or equal to 25 for adults) [] Physical inactivity [] [] Sickle cell disease or thalassemia [x] Smoking, current or former [] Solid organ or blood stem cell transplant [] Stroke or cerebrovascular disease [] Substance use disorders [] Tuberculosis [] People from racial and ethnic minority groups Criteria above are met: Yes Date of Positive Test: Date of Symptom Onset: 07/13/2022 Patient received COVID vaccine: Yes Drug-Drug interactions reviewed: Yes. Drug interactions were identified and the following actions were taken Flomax to be held while taking paxlovid. Patient verbalizes understanding to hold medication while he is taking I have discussed the use of the investigational therapeutic, nirmatrelvir/ritonavir, for the treatment of mild to moderate COVID-19 and its use under Emergency Use Authorization with the patient. The patient was informed that nirmatrelvir/ritonavir is not an FDA approved drug and that it is authorized for use under this Emergency Use Authorization. The patient was also informed of the significant known benefits and potential risks of nirmatrelvir/ritonavir, and the extent to which such potential risks and benefits are unknown. The patient was informed that there is mandatory reporting of all medication errors and serious adverse events potentially related to nirmatrelvir/ritonavir treatment within 7 calendar days from the onset of the event and that events up to 28 days after completion of therapy need to be reported. The discussion included alternatives to receiving nirmatrelvir/ritonavir, including clinical trials, and potential the risks and benefits of those alternatives. The patient was provided electronically with the Fact Sheet for Patients, Parents and Caregivers . The patient was also instructed that in addition to the treatment with nirmatrelvir/ritonavir, he/she should continue to self-isolate and use infection control measures (e.g., wear mask, isolate, social distance, avoid sharing personal items, clean and disinfect high touch surfaces, and frequent handwashing) according to CDC guidelines. The patient stated understanding and gave verbal consent to proceeding with nirmatrelvir/ritonavir treatment. Landon Hurst APRN.HOISTMAN July 15, 2022 9:02 AM I spent a total of 20 minutes on the date of the service which included preparing to see the patient, qcbn-ll-afzn patient care, completing clinical documentation, obtaining and/or reviewing separately obtained history, performing a medically appropriate examination, counseling and educating the patient/family/caregiver, and ordering medications, tests, or procedures. This patient encounter involved the screening or treatment of novel coronavirus infection (COVID-19). Prescription instructions reviewed with patient as applicable. Patient advised if symptoms do not improve or if symptoms worsen sooner, to contact their primary care physician. Potential red flag symptoms discussed with the patient. Reviewed appropriate action plan to take if red flag symptoms occur. Patient agreeable to treatment plan. I spent a total of 20 minutes on the date of the service which included preparing to see the patient, eoih-my-chah patient care, completing clinical documentation, obtaining and/or reviewing separately obtained history, performing a medically appropriate examination, counseling and educating the patient/family/caregiver, and ordering medications, tests, or procedures. documented in this encounter [facility] 07-14-2022 Miscellaneous Notes Agree. Patient's calling to let PCP know patient had positive home test for COVID today. His symptoms started yesterday. She says he has mild symptoms of a headache, dry cough and runny nose. She is asking about possible treatment. Advised to schedule VV for discussion of antiviral medication. Transferred to material control supervisor for appointment. Sheila Pak RN documented in this encounter [facility] 07-04-2022 Note HNO ID: [id number] Author: Yael Lake MD Service: ? Author Type: Physician Type: Progress Notes Filed: 07/04/2022 11:02 AM Note Text: Chief Complaint Patient presents with: Anxiety: Reports sertraline ineffective stopped taking 2 weeks ago HPI Omkar Smith is a 72 year old male who presents here today for Above Complaints. Accompanied today by Shagufta. Patient states he stopped his Zoloft about 2 weeks ago because his anxiety symptoms were uncontrolled on 50 mg. Did not have side effects on this medication. With his recent trip to the [facility], he was having panic symptoms anytime he was in the car on unfamiliar roads. Does not have problem driving in [facility]. Denies excessive worrying, racing thoughts, inability to control worrying, insomnia, difficiulty concentrating, irritability since he stopped the Zoloft. Not seeing counselor at this time. Just had thyroid labs through [facility] by endocrinology and was reportedly normal. Past medical history, appointments, medications, allergies reviewed. Previous Medical History PAST MEDICAL HISTORY Diagnosis Date Dysphagia seeing Dr. Doran Elevated PSA Dr. Frank Environmental allergies Seeing Dr. 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 Garcia Hypertrophy of prostate without urinary obstruction and other lower urinary tract symptoms (LUTS) Seeing Urology Internal hemorrhoids without mention of complication Melanoma (HCC) Seeing Dr. Olmos Panic disorder Personal history of colonic polyps Colon polyps Pure hypercholesterolemia Previous Surgical History PAST SURGICAL HISTORY Procedure Laterality Date COLONOSCOPY FLX DX W/COLLJ SPEC WHEN PFRMD 06/03/2000 Colonoscopy COLONOSCOPY FLX DX W/COLLJ SPEC WHEN PFRMD 12/30/2004 Colonoscopy COLONOSCOPY FLX DX W/COLLJ SPEC WHEN PFRMD 01/07/2010 COLONOSCOPY FLX DX W/COLLJ SPEC WHEN PFRMD 02/15/2015 Colonoscopy COLONOSCOPY FLX DX W/COLLJ SPEC WHEN PFRMD 12/02/2019 adenomatous polyp, repeat in 5 years DISKECTOMY, LUMBAR, SINGLE SP ESOPHAGOGASTRODUODENOSCOPY TRANSORAL DIAGNOSTIC 12/02/2019 mild gastritis and small hiatal hernia PAST SURGICAL HISTORY OF 2006 melanoma PAST SURGICAL HISTORY OF 6-9 years ago bilateral bunion suregery PAST SURGICAL HISTORY OF Left 05/03/2021 partial medial meniscectomy Family History FAMILY HISTORY Problem Relation Age of Onset Coronary Artery Disease Father Cancer Sister 40 colon Patient Allergies ALLERGIES Allergen Reactions Betadine [Povidone-* Rash Current Medications Current Outpatient Medications on File Prior to Visit Medication Sig calcium carbonate (CALTRATE) 600 mg calcium (1,500 mg) tab Take 600 mg by mouth. terbinafine HCl (LAMISIL) 250 mg tablet Take 1 tablet by mouth once daily. tamsulosin (FLOMAX) 0.4 mg Take 1 capsule by mouth daily at bedtime. pantoprazole DR (PROTONIX) 40 mg tablet Take 1 tablet by mouth once daily. finasteride (PROSCAR) 5 mg tablet Take 1 tablet by mouth once daily. calcium carbonate/vitamin D3 (CALCIUM 600 + D ORAL) Take by mouth. diphenhydramine HCl (BENADRYL ORAL) Take by mouth daily at bedtime. Ferrous Sulfate (SLOW FE) 142 mg (45 mg iron) TbER Take 65 mg by mouth once daily. IBUPROFEN ORAL Take 500 mg by mouth. ergocalciferol(VITAMIN D 400 UNIT CAP) MULTIVITAMIN TAB Take one(1) tablet daily. ASPIRIN 81 MG TAB Take one (1) tablet daily . sertraline (ZOLOFT) 50 mg tablet Take 1 tablet by mouth once daily. (Patient not taking: Reported on 07/04/2022) No current facility-administered medications on file prior to visit. Social History Social History Tobacco Use Smoking status: Former Smokeless tobacco: Former Quit date: 08/12/2002 Substance Use Topics Alcohol use: Yes Alcohol/week: 5.0 standard drinks Types: 2 Cans of Beer (12oz) per week Comment: occassional Drug use: No Review of Symptoms REVIEW OF SYSTEMS See HPI EXAM: BP 102/60 Pulse (!) 59 Resp 16 Wt 82.6 kg (182 lb) SpO2 96% BMI 25.38 kg/m? General Appearance: Well appearing, alert, in no acute distress, well-hydrated, well nourished. PSYCH: Posture and motor behavior: normal posture and motor behavior Dress, grooming, personal hygiene: normal dress and grooming Facial expression: good eye contact Speech: normal speech Mood: anxious Coherency and relevance of thought: normal thought processes Memory: normal memory Health Maintenance List ADVANCE DIRECTIVE DISCUSSION Never done INFLUENZA(1) due on 07/24/2022 DEPRESSION SCREENING due on 02/10/2023 ANNUAL PCP TEAM CHRONIC DISEASE VISIT due on 05/06/2023 COLORECTAL CANCER SCREENING due on 12/02/2024 DIABETES SCREEN due on 05/06/2025 LIPID SCREEN due on 04/25/2026 DTAP,TDAP,T (more content not included)... [facility] 07-04-2022 History of Present illness Narrative Chief Complaint Patient presents with: Anxiety: Reports sertraline ineffective stopped taking 2 weeks ago HPI Omkar Smith is a 72 year old male who presents here today for Above Complaints. Accompanied today by Shagufta. Patient states he stopped his Zoloft about 2 weeks ago because his anxiety symptoms were uncontrolled on 50 mg. Did not have side effects on this medication. With his recent trip to the [facility], he was having panic symptoms anytime he was in the car on unfamiliar roads. Does not have problem driving in [facility]. Denies excessive worrying, racing thoughts, inability to control worrying, insomnia, difficiulty concentrating, irritability since he stopped the Zoloft. Not seeing counselor at this time. Just had thyroid labs through [facility] by endocrinology and was reportedly normal. Past medical history, appointments, medications, allergies reviewed. Previous Medical History PAST MEDICAL HISTORY Diagnosis Date Dysphagia seeing Dr. Doran Elevated PSA Dr. Frank Environmental allergies Seeing Dr. 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 Garcia Hypertrophy of prostate without urinary obstruction and other lower urinary tract symptoms (LUTS) Seeing Urology Internal hemorrhoids without mention of complication Melanoma (HCC) Seeing Dr. Olmos Panic disorder Personal history of colonic polyps Colon polyps Pure hypercholesterolemia Previous Surgical History PAST SURGICAL HISTORY Procedure Laterality Date COLONOSCOPY FLX DX W/COLLJ SPEC WHEN PFRMD 06/03/2000 Colonoscopy COLONOSCOPY FLX DX W/COLLJ SPEC WHEN PFRMD 12/30/2004 Colonoscopy COLONOSCOPY FLX DX W/COLLJ SPEC WHEN PFRMD 01/07/2010 COLONOSCOPY FLX DX W/COLLJ SPEC WHEN PFRMD 02/15/2015 Colonoscopy COLONOSCOPY FLX DX W/COLLJ SPEC WHEN PFRMD 12/02/2019 adenomatous polyp, repeat in 5 years DISKECTOMY, LUMBAR, SINGLE SP ESOPHAGOGASTRODUODENOSCOPY TRANSORAL DIAGNOSTIC 12/02/2019 mild gastritis and small hiatal hernia PAST SURGICAL HISTORY OF 2006 melanoma PAST SURGICAL HISTORY OF 6-9 years ago bilateral bunion suregery PAST SURGICAL HISTORY OF Left 05/03/2021 partial medial meniscectomy Family History FAMILY HISTORY Problem Relation Age of Onset Coronary Artery Disease Father Cancer Sister 40 colon Patient Allergies ALLERGIES Allergen Reactions Betadine [Povidone-* Rash Current Medications Current Outpatient Medications on File Prior to Visit Medication Sig calcium carbonate (CALTRATE) 600 mg calcium (1,500 mg) tab Take 600 mg by mouth. terbinafine HCl (LAMISIL) 250 mg tablet Take 1 tablet by mouth once daily. tamsulosin (FLOMAX) 0.4 mg Take 1 capsule by mouth daily at bedtime. pantoprazole DR (PROTONIX) 40 mg tablet Take 1 tablet by mouth once daily. finasteride (PROSCAR) 5 mg tablet Take 1 tablet by mouth once daily. calcium carbonate/vitamin D3 (CALCIUM 600 + D ORAL) Take by mouth. diphenhydramine HCl (BENADRYL ORAL) Take by mouth daily at bedtime. Ferrous Sulfate (SLOW FE) 142 mg (45 mg iron) TbER Take 65 mg by mouth once daily. IBUPROFEN ORAL Take 500 mg by mouth. ergocalciferol(VITAMIN D 400 UNIT CAP) MULTIVITAMIN TAB Take one(1) tablet daily. ASPIRIN 81 MG TAB Take one (1) tablet daily . sertraline (ZOLOFT) 50 mg tablet Take 1 tablet by mouth once daily. (Patient not taking: Reported on 07/04/2022) No current facility-administered medications on file prior to visit. Social History Social History Tobacco Use Smoking status: Former Smokeless tobacco: Former Quit date: 08/12/2002 Substance Use Topics Alcohol use: Yes Alcohol/week: 5.0 standard drinks Types: 2 Cans of Beer (12oz) per week Comment: occassional Drug use: No Review of Symptoms REVIEW OF SYSTEMS See HPI EXAM: BP 102/60 Pulse (!) 59 Resp 16 Wt 82.6 kg (182 lb) SpO2 96% BMI 25.38 kg/m General Appearance: Well appearing, alert, in no acute distress, well-hydrated, well nourished. PSYCH: Posture and motor behavior: normal posture and motor behavior Dress, grooming, personal hygiene: normal dress and grooming Facial expression: good eye contact Speech: normal speech Mood: anxious Coherency and relevance of thought: normal thought processes Memory: normal memory Health Maintenance List ADVANCE DIRECTIVE DISCUSSION Never done INFLUENZA(1) due on 07/24/2022 DEPRESSION SCREENING due on 02/10/2023 ANNUAL PCP TEAM CHRONIC DISEASE VISIT due on 05/06/2023 COLORECTAL CANCER SCREENING due on 12/02/2024 DIABETES SCREEN due on 05/06/2025 LIPID SCREEN due on 04/25/2026 DTAP,TDAP,TD(2 - Td or Tdap) due on 11/17/2027 ABDOMINAL AORTIC ANEURYSM SCREENING Completed HEPATITIS C SCREENING Completed SHINGRIX VACCINE Completed COVID-19 VACCINE Completed PNEUMOCOCCAL: 65+ Completed ASSESSMENT/PLAN: 1. SHEA (generalized anxiety disorder) - ICD9: 300.02, ICD10: F41.1 (primary diagnosis) Uncontrolled. Discussed increase in zoloft to 100 mg daily and will add on propranolol for PRN use. Discussed risks of low BP and HR with beta sophia and should call if he experiences lightheadedness/dizziness. Call in 1 month with update or sooner with side effects. F/u in 3 months. - SERTRALINE 100 MG TABLET - PROPRANOLOL 20 MG TABLET 2. Situational anxiety - ICD9: 300.09, ICD10: F41.8 Yael Lake MD documented in this encounter [facility] 06-26-2022 Miscellaneous Notes [facility]ified via [facility]. Recommend OV to discuss symptoms and med adjustment. documented in this encounter [facility] 05-07-2022 Miscellaneous Notes Patient notified of results, verbalizes understanding of instructions. Caitlin Alex MA ----- Message from Yael Lake MD sent at 05/07/2022 8:08 AM EDT ----- Normal labs aside from mildly elevated sugar on non fasting blood work. Liver function normal, may start terbinafine and recheck LFTs in 6 weeks as ordered. documented in this encounter [facility] 05-06-2022 Note HNO ID: [id number] Author: Yael Lake MD Service: ? Author Type: Physician Type: Progress Notes Filed: 05/06/2022 6:01 PM Note Text: Chief Complaint Patient presents with: Anemia: concerns Outpatient Colonoscopy: due? HPI Omkar Smith is a 72 year old male who presents here today for Above Complaints.. Patient states that his was concerned that he could be anemic. Noted that he had CBC back in January which was normal. Patient denies bleeding symptoms, SOB, lightheadedness, fatigue. Patient following up with Dr. Noe for hyperthyroidism. Clinically and biochemically euthyroid in February 2021. Has not had follow up since that time. Notes that his left great toenail fell off about 1 month ago without pain. Was wearing heavy boots and helping son in law and had bruising under his toenail. Lost the toenail shortly after. Left 5th toe is yellow and thick and is worried he could lose this one as well. Zoloft working well to control his anxiety without panic symptoms or side effects. Did follow up with Dr. Negrete office for EGD and had esophagus stretched for dysphagia. Will obtain records. Dysphagia has resolved. Past medical history, appointments, medications, allergies reviewed. Previous Medical History PAST MEDICAL HISTORY Diagnosis Date - Dysphagia seeing Dr. Doran - Elevated PSA Dr. Frank - Environmental allergies Seeing Dr. Ferguson - Family history of malignant neoplasm of gastrointestinal tract - Herniated lumbar disc without myelopathy - High grade prostatic intraepithelial neoplasia - History of tobacco use 100 cigarettes total - Hyperthyroidism Endo-Dr. Garcia - Hypertrophy of prostate without urinary obstruction and other lower urinary tract symptoms (LUTS) Seeing Urology - Internal hemorrhoids without mention of complication - Melanoma (HCC) Seeing Dr. Olmos - Panic disorder - Personal history of colonic polyps Colon polyps - Pure hypercholesterolemia Previous Surgical History PAST SURGICAL HISTORY Procedure Laterality Date - COLONOSCOPY FLX DX W/COLLJ SPEC WHEN PFRMD 06/03/2000 Colonoscopy - COLONOSCOPY FLX DX W/COLLJ SPEC WHEN PFRMD 12/30/2004 Colonoscopy - COLONOSCOPY FLX DX W/COLLJ SPEC WHEN PFRMD 01/07/2010 - COLONOSCOPY FLX DX W/COLLJ SPEC WHEN PFRMD 02/15/2015 Colonoscopy - COLONOSCOPY FLX DX W/COLLJ SPEC WHEN PFRMD 12/02/2019 adenomatous polyp, repeat in 5 years - DISKECTOMY, LUMBAR, SINGLE SP - ESOPHAGOGASTRODUODENOSCOPY TRANSORAL DIAGNOSTIC 12/02/2019 mild gastritis and small hiatal hernia - PAST SURGICAL HISTORY OF 2006 melanoma - PAST SURGICAL HISTORY OF 6-9 years ago bilateral bunion suregery - PAST SURGICAL HISTORY OF Left 05/03/2021 partial medial meniscectomy Family History FAMILY HISTORY Problem Relation Age of Onset - Coronary Artery Disease Father - Cancer Sister 40 colon Patient Allergies ALLERGIES Allergen Reactions - Betadine [Povidone-* Rash Current Medications Current Outpatient Medications on File Prior to Visit Medication Sig - calcium carbonate (CALCIUM 600) 600 mg calcium (1,500 mg) tab Take 600 mg by mouth. - sertraline (ZOLOFT) 50 mg tablet Take 1 tablet by mouth once daily. - tamsulosin (FLOMAX) 0.4 mg Take 1 capsule by mouth daily at bedtime. - pantoprazole DR (PROTONIX) 40 mg tablet Take 1 tablet by mouth once daily. - finasteride (PROSCAR) 5 mg tablet Take 1 tablet by mouth once daily. - diphenhydramine HCl (BENADRYL ORAL) Take by mouth daily at bedtime. - Ferrous Sulfate (SLOW FE) 142 mg (45 mg iron) TbER Take 65 mg by mouth once daily. - IBUPROFEN ORAL Take 500 mg by mouth. - ergocalciferol(VITAMIN D 400 UNIT CAP) - MULTIVITAMIN TAB Take one(1) tablet daily. - ASPIRIN 81 MG TAB Take one (1) tablet daily . - benzonatate (TESSALON PERLES) 100 mg capsule Take 2 capsules by mouth three times daily as needed. (Patient not taking: Reported on 05/06/2022 ) - hydrOXYzine pamoate (VISTARIL) 25 mg capsule Take 1 capsule by mouth once daily as needed for anxiety (insomnia). (Patient not taking: Reported on 05/06/2022 ) - calcium carbonate/vitamin D3 (CALCIUM 600 + D ORAL) Take by mouth. (Patient not taking: Reported on 05/06/2022 ) No current facility-administered medications on file prior to visit. Social History Social History Tobacco Use - Smoking status: Former Smoker - Smokeless tobacco: Former User Quit date: 08/12/2002 Substance Use Topics - Alcohol use: Yes Alcohol/week: 5.0 standard drinks Types: 2 Cans of Beer (12oz) per week Comment: occassional - Drug use: No Review of Symptoms REVIEW OF SYSTEMS GENERAL: No weight loss, malaise or fevers RESPIRATORY: Negative for cough, hemoptysis, wheezing, COPD, dyspnea or shortness of breath CARDIOVASCULAR: Negative for chest pain, leg swelling, hypertension, CHF or palpitations GI: No nausea, vomiting, or diarrhea SKIN: See HPI EXAM: BP 1 (more content not included)... [facility] 05-06-2022 Miscellaneous Notes Patient phones requesting refills as follows: Pending Prescriptions Disp Refills SERTRALINE 50 MG TABLET 30 tablet 2 Sig: Take 1 tablet by mouth once daily. VEL: No Please review and advise. Claudine Polanco LPN documented in this encounter [facility] 05-06-2022 History of Present illness Narrative Chief Complaint Patient presents with: Anemia: concerns Outpatient Colonoscopy: due? HPI Omkar Smith is a 72 year old male who presents here today for Above Complaints.. Patient states that his was concerned that he could be anemic. Noted that he had CBC back in January which was normal. Patient denies bleeding symptoms, SOB, lightheadedness, fatigue. Patient following up with Dr. Noe for hyperthyroidism. Clinically and biochemically euthyroid in February 2021. Has not had follow up since that time. Notes that his left great toenail fell off about 1 month ago without pain. Was wearing heavy boots and helping son in law and had bruising under his toenail. Lost the toenail shortly after. Left 5th toe is yellow and thick and is worried he could lose this one as well. Zoloft working well to control his anxiety without panic symptoms or side effects. Did follow up with Dr. Negrete office for EGD and had esophagus stretched for dysphagia. Will obtain records. Dysphagia has resolved. Past medical history, appointments, medications, allergies reviewed. Previous Medical History PAST MEDICAL HISTORY Diagnosis Date Dysphagia seeing Dr. Doran Elevated PSA Dr. Frank Environmental allergies Seeing Dr. 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 Garcia Hypertrophy of prostate without urinary obstruction and other lower urinary tract symptoms (LUTS) Seeing Urology Internal hemorrhoids without mention of complication Melanoma (HCC) Seeing Dr. Olmos Panic disorder Personal history of colonic polyps Colon polyps Pure hypercholesterolemia Previous Surgical History PAST SURGICAL HISTORY Procedure Laterality Date COLONOSCOPY FLX DX W/COLLJ SPEC WHEN PFRMD 06/03/2000 Colonoscopy COLONOSCOPY FLX DX W/COLLJ SPEC WHEN PFRMD 12/30/2004 Colonoscopy COLONOSCOPY FLX DX W/COLLJ SPEC WHEN PFRMD 01/07/2010 COLONOSCOPY FLX DX W/COLLJ SPEC WHEN PFRMD 02/15/2015 Colonoscopy COLONOSCOPY FLX DX W/COLLJ SPEC WHEN PFRMD 12/02/2019 adenomatous polyp, repeat in 5 years DISKECTOMY, LUMBAR, SINGLE SP ESOPHAGOGASTRODUODENOSCOPY TRANSORAL DIAGNOSTIC 12/02/2019 mild gastritis and small hiatal hernia PAST SURGICAL HISTORY OF 2006 melanoma PAST SURGICAL HISTORY OF 6-9 years ago bilateral bunion suregery PAST SURGICAL HISTORY OF Left 05/03/2021 partial medial meniscectomy Family History FAMILY HISTORY Problem Relation Age of Onset Coronary Artery Disease Father Cancer Sister 40 colon Patient Allergies ALLERGIES Allergen Reactions Betadine [Povidone-* Rash Current Medications Current Outpatient Medications on File Prior to Visit Medication Sig calcium carbonate (CALCIUM 600) 600 mg calcium (1,500 mg) tab Take 600 mg by mouth. sertraline (ZOLOFT) 50 mg tablet Take 1 tablet by mouth once daily. tamsulosin (FLOMAX) 0.4 mg Take 1 capsule by mouth daily at bedtime. pantoprazole DR (PROTONIX) 40 mg tablet Take 1 tablet by mouth once daily. finasteride (PROSCAR) 5 mg tablet Take 1 tablet by mouth once daily. diphenhydramine HCl (BENADRYL ORAL) Take by mouth daily at bedtime. Ferrous Sulfate (SLOW FE) 142 mg (45 mg iron) TbER Take 65 mg by mouth once daily. IBUPROFEN ORAL Take 500 mg by mouth. ergocalciferol(VITAMIN D 400 UNIT CAP) MULTIVITAMIN TAB Take one(1) tablet daily. ASPIRIN 81 MG TAB Take one (1) tablet daily . benzonatate (TESSALON PERLES) 100 mg capsule Take 2 capsules by mouth three times daily as needed. (Patient not taking: Reported on 05/06/2022 ) hydrOXYzine pamoate (VISTARIL) 25 mg capsule Take 1 capsule by mouth once daily as needed for anxiety (insomnia). (Patient not taking: Reported on 05/06/2022 ) calcium carbonate/vitamin D3 (CALCIUM 600 + D ORAL) Take by mouth. (Patient not taking: Reported on 05/06/2022 ) No current facility-administered medications on file prior to visit. Social History Social History Tobacco Use Smoking status: Former Smoker Smokeless tobacco: Former User Quit date: 08/12/2002 Substance Use Topics Alcohol use: Yes Alcohol/week: 5.0 standard drinks Types: 2 Cans of Beer (12oz) per week Comment: occassional Drug use: No Review of Symptoms REVIEW OF SYSTEMS GENERAL: No weight loss, malaise or fevers RESPIRATORY: Negative for cough, hemoptysis, wheezing, COPD, dyspnea or shortness of breath CARDIOVASCULAR: Negative for chest pain, leg swelling, hypertension, CHF or palpitations GI: No nausea, vomiting, or diarrhea SKIN: See HPI EXAM: BP 106/60 Pulse 63 Resp 16 Wt 82.6 kg (182 lb) SpO2 97% BMI 25.38 kg/m General Appearance: Well appearing, alert, in no acute distress, well-hydrated, well nourished.. Skin: Skin color, texture, turgor normal, no suspicious rashes or lesions. Lungs: Lungs clear to auscultation. No wheezing, rhonchi, rales.. Heart: RRR without murmur, gallop, or rubs. No ectopy. Abdomen: Normal abdominal exam, Abdomen soft, non-tender. Bowel sounds normal. No masses, organomegaly. Extremities: No deformities, edema, skin discoloration, clubbing or cyanosis. Good capillary refill. Feet: Shoes and socks removed, normal distal pulses and nails notable for Crumbly, Deformed, Hypertrophic or Yellowish. Left great toenail missing without bleeding, infection, bruising. Health Maintenance List ADVANCE DIRECTIVE DISCUSSION Never done ANNUAL PCP TEAM CHRONIC DISEASE VISIT due on 02/10/2023 DEPRESSION SCREENING due on 02/10/2023 DIABETES SCREEN due on 04/25/2024 COLORECTAL CANCER SCREENING due on 12/02/2024 LIPID SCREEN due on 04/25/2026 DTAP,TDAP,TD(2 - Td or Tdap) due on 11/17/2027 ABDOMINAL AORTIC ANEURYSM SCREENING Completed INFLUENZA Completed HEPATITIS C SCREENING Completed SHINGRIX VACCINE Completed COVID-19 VACCINE Completed PNEUMOCOCCAL: 65+ Completed ASSESSMENT/PLAN: 1. SHEA (generalized anxiety disorder) - ICD9: 300.02, ICD10: F41.1 (primary diagnosis) Improved on Zoloft. Continue current regimen. 2. Esophageal dysphagia - ICD9: 787.29, ICD10: R13.19 Improved 2/2 EGD. Will obtain records from Dr. Negrete office. F/u PRN. 3. Onychomycosis - ICD9: 110.1, ICD10: B35.1 Start terbinafine 250 mg x3 months after checking LFTs. Repeat LFTs in 6 weeks to monitor. Call if not improving. - COMP METABOLIC PANEL - HEPATIC FUNCTION PNL 4. Traumatic loss of toenail of left great toe, initial encounter - ICD9: 893.0, ICD10: S91.202A Loss after trauma. Possible fungal infection prior to injury. Will treat with terbinafine as above. 5. Hyperthyroidism - ICD9: 242.90, ICD10: E05.90 Due for 1 Year follow up with endocrinology. Keep appointment as scheduled. documented in this encounter [facility] 03-13-2022 History of Present illness Narrative This note was created using [employer]. Subjective Omkar Smith is a 71 year old male. HPI Patient presents with sinus pressure and congestion over the past 8 days. He has tried Flonase and an [id number] cough and cold medication without any relief. He has had sinusitis previously. He states he does cough but thinks it is from postnasal drip. No chest pain or shortness of breath. Denies any sick contacts. No vomiting or diarrhea. He did take an at home COVID test yesterday which was negative. Review of Systems Constitutional: Negative for chills and fever. HENT: Positive for congestion, postnasal drip, rhinorrhea, sinus pressure and sinus pain. Negative for ear pain and sore throat. Respiratory: Positive for cough. Cardiovascular: Negative. Gastrointestinal: Negative. Genitourinary: Negative. Musculoskeletal: Negative. Neurological: Positive for headaches. All other systems reviewed and are negative. PAST MEDICAL HISTORY Diagnosis Date Dysphagia seeing Dr. Doran Elevated PSA Dr. Frank Environmental allergies Seeing Dr. 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 Garcia Hypertrophy of prostate without urinary obstruction and other lower urinary tract symptoms (LUTS) Seeing Urology Internal hemorrhoids without mention of complication Melanoma (HCC) Seeing Dr. Olmos Panic disorder Personal history of colonic polyps Colon polyps Pure hypercholesterolemia Current Outpatient Medications Medication Sig Dispense Refill sertraline (ZOLOFT) 50 mg tablet Take 1 tablet by mouth once daily. 30 tablet 2 hydrOXYzine pamoate (VISTARIL) 25 mg capsule Take 1 capsule by mouth once daily as needed for anxiety (insomnia). 90 capsule 1 tamsulosin (FLOMAX) 0.4 mg Take 1 capsule by mouth daily at bedtime. [address] (PROTONIX) 40 mg tablet Take 1 tablet by mouth once daily. 90 tablet 3 finasteride (PROSCAR) 5 mg tablet Take 1 tablet by mouth once daily. 30 tablet 11 calcium carbonate/vitamin D3 (CALCIUM 600 + D ORAL) Take by mouth. diphenhydramine HCl (BENADRYL ORAL) Take by mouth daily at bedtime. Ferrous Sulfate (SLOW FE) 142 mg (45 mg iron) TbER Take by mouth twice daily. IBUPROFEN ORAL Take 500 mg by mouth. ergocalciferol(VITAMIN D 400 UNIT CAP) 0 benzonatate (TESSALON PERLES) 100 mg capsule Take 2 capsules by mouth three times daily as needed. 30 capsule 0 amoxicillin-clavulanic acid (AUGMENTIN) 875-125 mg per tablet Take 1 tablet by mouth twice daily for 7 days. 14 tablet 0 MULTIVITAMIN TAB Take one(1) tablet daily. 0 ASPIRIN 81 MG TAB Take one (1) tablet daily . 0 No current facility-administered medications for this visit. PAST SURGICAL HISTORY Procedure Laterality Date COLONOSCOPY FLX DX W/COLLJ SPEC WHEN PFRMD 06/03/2000 Colonoscopy COLONOSCOPY FLX DX W/COLLJ SPEC WHEN PFRMD 12/30/2004 Colonoscopy COLONOSCOPY FLX DX W/COLLJ SPEC WHEN PFRMD 01/07/2010 COLONOSCOPY FLX DX W/COLLJ SPEC WHEN PFRMD 02/15/2015 Colonoscopy COLONOSCOPY FLX DX W/COLLJ SPEC WHEN PFRMD 12/02/2019 adenomatous polyp, repeat in 5 years DISKECTOMY, LUMBAR, SINGLE SP ESOPHAGOGASTRODUODENOSCOPY TRANSORAL DIAGNOSTIC 12/02/2019 mild gastritis and small hiatal hernia PAST SURGICAL HISTORY OF 2006 melanoma PAST SURGICAL HISTORY OF 6-9 years ago bilateral bunion suregery PAST SURGICAL HISTORY OF Left 05/03/2021 partial medial meniscectomy FAMILY HISTORY Problem Relation Age of Onset Coronary Artery Disease Father Cancer Sister 40 colon Social History Tobacco Use Smoking status: Former Smoker Smokeless tobacco: Former User Quit date: 08/12/2002 Substance Use Topics Alcohol use: Yes Alcohol/week: 5.0 standard drinks Types: 2 Cans of Beer (12oz) per week Comment: occassional Drug use: No Objective BP 122/78 Pulse 67 Temp 36.7 C (98 F) Resp 20 Wt 85.1 kg (187 lb 9.6 oz) SpO2 98% BMI 26.16 kg/m Physical Exam Vitals reviewed. Constitutional: Appearance: Normal appearance. HENT: Head: Normocephalic and atraumatic. Right Ear: Tympanic membrane, ear canal and external ear normal. Left Ear: Tympanic membrane, ear canal and external ear normal. Nose: Rhinorrhea present. Right Sinus: Frontal sinus tenderness present. Left Sinus: Frontal sinus tenderness present. Mouth/Throat: Mouth: Mucous membranes are moist. Pharynx: Oropharynx is clear. Cardiovascular: Rate and Rhythm: Normal rate and regular rhythm. Heart sounds: Normal heart sounds. Pulmonary: Effort: Pulmonary effort is normal. Breath sounds: Normal breath sounds. Musculoskeletal: Cervical back: Neck supple. Lymphadenopathy: Cervical: No cervical adenopathy. Skin: General: Skin is warm and dry. Neurological: General: No focal deficit present. Mental Status: He is alert and oriented to person, place, and time. Assessment and Plan ASSESSMENT/PLAN: 1. Acute non-recurrent frontal sinusitis - ICD9: 461.1, ICD10: J01.10 - Will begin treatment with Augmentin 875 mg PO BID for 7 days- discussed possibly waiting 2-3 days to see if symptoms resolve on there own with otc meds. - Supportive care with plenty of fluids, rest, and analgesia prn. - Follow up in 3-5 days if symptoms persist or worsen. - patient declines pcr covid test Jerrica Anguiano PA-C documented in this encounter [facility] 02-10-2022 Miscellaneous Notes Imaging and referral order placed. Please fax as requested. Patient spoke with Dr Doran's office and they told him to get a referral to see him and stated to have you put an order in for an Esophagram. Once the order is placed fax esophagram to [facility] so they can get him scheduled. documented in this encounter [facility] 02-10-2022 History of Present illness Narrative Chief Complaint Patient presents with: F/U 3 Month HPI Omkar Smith is a 71 year old male who presents here today for routine follow up. Patient states that he had labs drawn on 02/06 at [facility] which I have not received. He saw Dr. Frank today and they said his PSA was perfect. Taking Proscar and Flomax as prescribed. Getting up once per night to urinate. Admits to weak stream without straining to urinate. No changes made to his regimen. F/u in 1 year. Still has trouble swallowing solid foods occasionally and will have to regurgitate. Taking Protonix once daily as prescribed without heartburn. Last EGD in 2019. Not sure when his next appointment is with Dr. Doran's office. PHQ-2 / Depression screen He in the past two weeks denies having felt down, depressed, hopeless or with little interest or pleasure in doing things. Using vistaril for panic symptoms about 2-3 times per week. Worsening anxiety symptoms below. Not seeing counseling. Would like to try daily rx. 02/10/22 1011 Last Filed Value SHEA-7 - over the last 2 weeks... Feeling nervous, anxious, or on edge Several days Several days Not being able to stop or control worrying Several days Several days Worrying too much about different things Nearly Everyday Nearly Everyday Trouble relaxing Nearly Everyday Nearly Everyday Being so restless that it is hard to sit still Nearly Everyday Nearly Everyday Becoming easily annoyed or irritable Not at all Not at all Feeling afraid, as if something awful might happen Not at all Not at all How difficult to do work, care for home, get along with people SHEA-2 Total Score 2 2 SHEA-7 Total Score 11 11 SHEA-7 Score 11 11 Past medical history, appointments, medications, allergies reviewed. Previous Medical History PAST MEDICAL HISTORY Diagnosis Date Dysphagia seeing Dr. Doran Elevated PSA Dr. Frank Environmental allergies Seeing Dr. 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 Garcia Hypertrophy of prostate without urinary obstruction and other lower urinary tract symptoms (LUTS) Seeing Urology Internal hemorrhoids without mention of complication Melanoma (HCC) Seeing Dr. Olmos Panic disorder Personal history of colonic polyps Colon polyps Pure hypercholesterolemia Previous Surgical History PAST SURGICAL HISTORY Procedure Laterality Date COLONOSCOPY FLX DX W/COLLJ SPEC WHEN PFRMD 06/03/2000 Colonoscopy COLONOSCOPY FLX DX W/COLLJ SPEC WHEN PFRMD 12/30/2004 Colonoscopy COLONOSCOPY FLX DX W/COLLJ SPEC WHEN PFRMD 01/07/2010 COLONOSCOPY FLX DX W/COLLJ SPEC WHEN PFRMD 02/15/2015 Colonoscopy COLONOSCOPY FLX DX W/COLLJ SPEC WHEN PFRMD 12/02/2019 adenomatous polyp, repeat in 5 years DISKECTOMY, LUMBAR, SINGLE SP ESOPHAGOGASTRODUODENOSCOPY TRANSORAL DIAGNOSTIC 12/02/2019 mild gastritis and small hiatal hernia PAST SURGICAL HISTORY OF 2006 melanoma PAST SURGICAL HISTORY OF 6-9 years ago bilateral bunion suregery PAST SURGICAL HISTORY OF Left 05/03/2021 partial medial meniscectomy Family History FAMILY HISTORY Problem Relation Age of Onset Coronary Artery Disease Father Cancer Sister 40 colon Patient Allergies ALLERGIES Allergen Reactions Betadine [Povidone-* Rash Current Medications Current Outpatient Medications on File Prior to Visit Medication Sig hydrOXYzine pamoate (VISTARIL) 25 mg capsule Take 1 capsule by mouth once daily as needed for anxiety (insomnia). tamsulosin (FLOMAX) 0.4 mg Take 1 capsule by mouth daily at bedtime. pantoprazole DR (PROTONIX) 40 mg tablet Take 1 tablet by mouth once daily. finasteride (PROSCAR) 5 mg tablet Take 1 tablet by mouth once daily. calcium carbonate/vitamin D3 (CALCIUM 600 + D ORAL) Take by mouth. diphenhydramine HCl (BENADRYL ORAL) Take by mouth daily at bedtime. Ferrous Sulfate (SLOW FE) 142 mg (45 mg iron) TbER Take by mouth twice daily. IBUPROFEN ORAL Take 500 mg by mouth. ergocalciferol(VITAMIN D 400 UNIT CAP) MULTIVITAMIN TAB Take one(1) tablet daily. ASPIRIN 81 MG TAB Take one (1) tablet daily . No current facility-administered medications on file prior to visit. Social History Social History Tobacco Use Smoking status: Former Smoker Smokeless tobacco: Former User Quit date: 08/12/2002 Substance Use Topics Alcohol use: Yes Alcohol/week: 5.0 standard drinks Types: 2 Cans of Beer (12oz) per week Comment: occassional Drug use: No Review of Symptoms REVIEW OF SYSTEMS GENERAL: No weight loss, malaise or fevers RESPIRATORY: Negative for cough, hemoptysis, wheezing, COPD, dyspnea or shortness of breath CARDIOVASCULAR: Negative for chest pain, leg swelling, hypertension, CHF or palpitations GI: No nausea, vomiting, or diarrhea SKIN: Negative for lesions, rash, and itching EXAM: BP 118/70 Pulse (!) 59 Resp 18 Wt 84.9 kg (187 lb 3.2 oz) SpO2 97% BMI 26.11 kg/m General Appearance: Well appearing, alert, in no acute distress, well-hydrated, well nourished.. Skin: Skin color, texture, turgor normal, no suspicious rashes or lesions. Lungs: Lungs clear to auscultation. No wheezing, rhonchi, rales.. Heart: RRR without murmur, gallop, or rubs. No ectopy. Abdomen: Normal abdominal exam, Abdomen soft, non-tender. Bowel sounds normal. No masses, organomegaly. Extremities: No deformities, edema, skin discoloration, clubbing or cyanosis. Good capillary refill. . Health Maintenance List DEPRESSION SCREENING due on 10/08/2018 ADVANCE DIRECTIVE DISCUSSION Never done ANNUAL PCP TEAM CHRONIC DISEASE VISIT due on 08/12/2022 DIABETES SCREEN due on 04/25/2024 COLORECTAL CANCER SCREENING due on 12/02/2024 LIPID SCREEN due on 04/25/2026 DTAP,TDAP,TD(2 - Td or Tdap) due on 11/17/2027 ABDOMINAL AORTIC ANEURYSM SCREENING Completed INFLUENZA Completed HEPATITIS C SCREENING Completed PNEUMOVAX AGE 65 AND OVER WITH 5YR LOOKBACK Completed SHINGRIX VACCINE Completed COVID-19 VACCINE Completed MENINGOCOCCAL CONJUGATE Aged Out Data reviewed Component Latest Ref Rng & Units 04/25/2021 Glucose 74 - 99 mg/dL 99 BUN 9 - 24 mg/dL 18 Creatinine 0.73 - 1.22 mg/dL 0.87 Sodium 136 - 144 mmol/L 139 Potassium 3.7 - 5.1 mmol/L 4.6 Chloride 97 - 105 mmol/L 102 CO2 22 - 30 mmol/L 29 Anion Gap 9 - 18 mmol/L 8 (L) Calcium 8.5 - 10.2 mg/dL 9.5 eGFR- >60 eGFR-All Other Races . >60 WBC 3.70 - 11.00 k/uL 4.93 RBC 4.20 - 6.00 m/uL 4.63 Hemoglobin 13.0 - 17.0 g/dL 14.3 Hematocrit 39.0 - 51.0 % 43.3 MCV 80.0 - 100.0 fL 93.5 MCH 26.0 - 34.0 pG 30.9 MCHC 30.5 - 36.0 g/dL 33.0 RDW-CV 11.5 - 15.0 % 13.3 Platelet Count 150 - 400 k/uL 185 MPV 9.0 - 12.7 fL 9.9 Absolute nRBC <0.01 k/uL <0.01 Cholesterol, Total <200 mg/dL 163 Triglyceride <150 mg/dL 120 HDL Cholesterol >39 mg/dL 57 LDL Cholesterol <100 mg/dL 82 Non HDL Cholesterol <130 mg/dL 106 Fasting Time hrs 13 VLDL Cholesterol <30 mg/dL 24 TC:HDL Ratio <5.10 2.86 LDL:HDL Ratio <2.54 1.44 ASSESSMENT/PLAN: 1. SHEA (generalized anxiety disorder) - ICD9: 300.02, ICD10: F41.1 (primary diagnosis) Worsening anxiety. Start SSRI. Call if symptoms not improving in 4-6 weeks or sooner with side effects. - SERTRALINE 50 MG TABLET 2. Panic disorder - ICD9: 300.01, ICD10: F41.0 Continue vistaril PRN. 3. Elevated PSA - ICD9: 790.93, ICD10: R97.20 Recommendations per Urology. Will obtain their records. 4. BPH with obstruction/lower urinary tract symptoms - ICD9: 600.01, 599.69, ICD10: N40.1, N13.8 Controlled on current regimen. F/u with urology. 5. Pure hypercholesterolemia - ICD9: 272.0, ICD10: E78.00 Good control. Continue current regimen. 6. Hyperthyroidism - ICD9: 242.90, ICD10: E05.90 Recommendations per endocrinology. Yael Lake MD documented in this encounter [facility] documented as of this encounter (statuses as of 02/11/2022) [facility]-28[facility]2017 History of Past illness Narrative* Problem Noted Date Resolved Date Benign non-nodular prostatic hyperplasia without lower urinary tract symptoms 01/20/2017 10/06/2018 Special screening for malignant neoplasms, colon 02/15/2015 02/15/2015 Elevated PSA 04/05/2018 documented as of this encounter (statuses as of 02/11/2022) [facility]2017 History of Past illness Narrative* Problem Noted Date Resolved Date Benign non-nodular prostatic hyperplasia without lower urinary tract symptoms 01/20/2017 10/06/2018 Special screening for malignant neoplasms, colon 02/15/2015 02/15/2015 Elevated PSA 04/05/2018 documented as of this encounter (statuses as of 03/13/2022) [facility] History of Past illness Narrative* Problem Noted Date Resolved Date Benign non-nodular prostatic hyperplasia without lower urinary tract symptoms 01/20/2017 10/06/2018 Special screening for malignant neoplasms, colon 02/15/2015 02/15/2015 Elevated PSA 04/05/2018 documented as of this encounter (statuses as of 05/06/2022) [facility] History of Past illness Narrative* Problem Noted Date Resolved Date Benign non-nodular prostatic hyperplasia without lower urinary tract symptoms 01/20/2017 10/06/2018 Special screening for malignant neoplasms, colon 02/15/2015 02/15/2015 Elevated PSA 04/05/2018 documented as of this encounter (statuses as of 05/06/2022) [place] [id number] History of Past illness Narrative* Problem Noted Date Resolved Date Benign non-nodular prostatic hyperplasia without lower urinary tract symptoms 01/20/2017 10/06/2018 Special screening for malignant neoplasms, colon 02/15/2015 02/15/2015 Elevated PSA 04/05/2018 documented as of this encounter (statuses as of 05/07/2022) [address]28-2017 History of Past illness Narrative* Problem Noted Date Resolved Date Benign non-nodular prostatic hyperplasia without lower urinary tract symptoms 01/20/2017 10/06/2018 Special screening for malignant neoplasms, colon 02/15/2015 02/15/2015 Elevated PSA 04/05/2018 documented as of this encounter (statuses as of 06/26/2022) [address]28-2017 History of Past illness Narrative* Problem Noted Date Resolved Date Benign non-nodular prostatic hyperplasia without lower urinary tract symptoms 01/20/2017 10/06/2018 Special screening for malignant neoplasms, colon 02/15/2015 02/15/2015 Elevated PSA 04/05/2018 documented as of this encounter (statuses as of 07/04/2022) [address]-2017 History of Past illness Narrative* Problem Noted Date Resolved Date Benign non-nodular prostatic hyperplasia without lower urinary tract symptoms 01/20/2017 10/06/2018 Special screening for malignant neoplasms, colon 02/15/2015 02/15/2015 Elevated PSA 04/05/2018 documented as of this encounter (statuses as of 07/15/2022) [address]-2017 History of Past illness Narrative* Problem Noted Date Resolved Date Benign non-nodular prostatic hyperplasia without lower urinary tract symptoms 01/20/2017 10/06/2018 Special screening for malignant neoplasms, colon 02/15/2015 02/15/2015 Elevated PSA 04/05/2018 documented as of this encounter (statuses as of 07/16/2022) [address]-2017 History of Past illness Narrative* Problem Noted Date Resolved Date Benign non-nodular prostatic hyperplasia without lower urinary tract symptoms 01/20/2017 10/06/2018 Special screening for malignant neoplasms, colon 02/15/2015 02/15/2015 Elevated PSA 04/05/2018 documented as of this encounter (statuses as of 10/06/2022) [address]2017 History of Past illness Narrative* Problem Noted Date Resolved Date Benign non-nodular prostatic hyperplasia without lower urinary tract symptoms 01/20/2017 10/06/2018 Special screening for malignant neoplasms, colon 02/15/2015 02/15/2015 Elevated PSA 04/05/2018 documented as of this encounter (statuses as of 04/07/2023) [facility]-28-2017 History of Past illness Narrative* Problem Noted Date Resolved Date Benign non-nodular prostatic hyperplasia without lower urinary tract symptoms 01/20/2017 10/06/2018 Special screening for malignant neoplasms, colon 02/15/2015 02/15/2015 Elevated PSA 04/05/2018 documented as of this encounter (statuses as of 05/06/2023) [facility]2017 History of Past illness Narrative* Problem Noted Date Diagnosed Date Resolved Date Benign non-nodular prostatic hyperplasia without lower urinary tract symptoms 01/20/2017 Special screening for malign ant neoplasms, colon 02/15/2015 02/15/2015 Elevated PSA 04/05/2018 documented as of this encounter (statuses as of 09/27/2023) [facility] Appointment Date:03/06/2022 09:00:00 AM Scheduled Provider:CONNIE GARCIA MD Location:[facility] Appointment Type:ENDO OV Future Scheduled Tests Laboratory* Ferritin 09/06/21 * Iron Level 09/06/21 * Lactate Dehydrogenase 09/06/21 * Thyroid Stimulating Hormone 03/07/22 * Free T4 03/07/22 * Complete Blood Count 09/06/21 * Complete Blood Count 03/07/22 * Free T3 03/07/22 * Complete Metabolic Panel 03/07/22 * TIBC 09/06/21 [facility] Evaluation + Plan note Future Appointments Appointment Date:07/02/2023 09:00:00 AM Scheduled Provider:CONNIE GARCIA MD Location:[facility] Appointment Type:ENDO OV Future Scheduled Tests Laboratory* Thyroid Stimulating Hormone 07/03/23 * Free T4 07/03/23 * Free T3 07/03/23 * Thyroid Stimulating Immunoglobulin 07/03/23 * Complete Metabolic Panel 07/03/23 * anti-Thyroid Peroxidase 07/03/23 [facility] Evaluation + Plan note Future Appointments Appointment Date:07/02/2023 09:00:00 AM Scheduled Provider:CONNIE GARCIA MD Location:[facility] Appointment Type:ENDO OV Diagnostic Tests Pending * Thyroid Stimulating Immunoglobulin [facility] Diagnosis Esophageal dysphagia- Primary Dysphagia, pharyngoesophageal phase documented in this encounter [facility] note* Diagnosis SHEA (generalized anxiety disorder)- Primary Generalized anxiety disorder Panic disorder Panic disorder without agoraphobia Elevated PSA Elevated prostate specific antigen (PSA) BPH with obstruction/lower urinary tract symptoms Hypertrophy of prostate with urinary obstruction and other lower urinary tract symptoms (LUTS) Pure hypercholesterolemia Hyperthyroidism Thyrotoxicosis without mention of goiter or other cause, without mention of thyrotoxic crisis or storm [facility] Diagnosis Acute non-recurrent frontal sinusitis- Primary documented in this encounter [facility] note* Diagnosis SHEA (generalized anxiety disorder)- Primary Generalized anxiety disorder Esophageal dysphagia Dysphagia, pharyngoesophageal phase Onychomycosis Dermatophytosis of nail Traumatic loss of toenail of left great toe, initial encounter Hyperthyroidism Thyrotoxicosis without mention of goiter or other cause, without mention of thyrotoxic crisis or storm [facility] Diagnosis SHEA (generalized anxiety disorder) Generalized anxiety disorder [facility] Diagnosis SHEA (generalized anxiety disorder)- Primary Generalized anxiety disorder Situational anxiety Other anxiety states documented in this encounter [facility] note* Diagnosis Telehealth encounter for confirmed COVID-19- Primary [facility] Diagnosis SHEA (generalized anxiety disorder)- Primary Generalized anxiety disorder Situational anxiety Other anxiety states BPH with obstruction/lower urinary tract symptoms Hypertrophy of prostate with urinary obstruction and other lower urinary tract symptoms (LUTS) Benign essential tremor Essential and other specified forms of tremor [facility] Diagnosis Skin irritation- Primary Unspecified disorder of skin and subcutaneous tissue Elevated LDL cholesterol level Pure hypercholesterolemia BPH with obstruction/lower urinary tract symptoms Hypertrophy of prostate with urinary obstruction and other lower urinary tract symptoms (LUTS) SHEA (generalized anxiety disorder) Generalized anxiety disorder Panic disorder Panic disorder without agoraphobia Benign essential tremor Essential and other specified forms of tremor Family history of abdominal aortic aneurysm (AAA) Hyperthyroidism Thyrotoxicosis without mention of goiter or other cause, without mention of thyrotoxic crisis or storm Malignant melanoma of skin of trunk, except scrotum (HCC) Malignant melanoma of skin of trunk, except scrotum [facility] Diagnosis SHEA (generalized anxiety disorder) Generalized anxiety disorder [facility] Diagnosis Family history of abdominal aortic aneurysm (AAA) documented in this encounter [facility] course Narrative No data available for this section [facility] Hospital Discharge instructions No data available for this section [facility] Progress note No data available for this section [facility] Reason for referral (narrative)* Diagnostic Procedure Only (Routine) - Pending Review Specialty Diagnoses / Procedures Referred By Guero haynes Referred To Contact XR IMAGING Diagnoses Esophageal dysphagia Procedures XR ESOPHAGRAM RADIOLOGIC EXAM ESOPHAGUS SINGLE CONTRAST STUDY Yael Lake MD [address] [place] [address] Xr Imaging Referral ID Status Reason Start Date Expiration Date Visits Requested Visits Authorized [id number] Pending Review Auto-Generat ed Referral 02/10/2022 03/12/2023 1 1 * Consult, Test, Treat (Routine) - Pending Review Specialty Diagnoses / Procedures Referred By Guero haynes Referred To Contact Gastroenterology Diagnoses Esophageal dysphagia Procedures CONSULT TO GASTROENTEROLOGY OFFICE/OUTPATIENT [facility] 60-74 MINUTES Yael Lake MD [address] [place] [address] Referral ID Status Reason Start Date Expiration Date Visits Requested Visits Authorized [id number] Pending Review PCP Requested Referral 02/10/2022 02/10/2023 1 1 [facility] for referral (narrative)* Diagnostic Procedure Only (Routine) - Authorized Specialty Diagnoses / Procedures Referred By Contac t Referred To Contact US IMAGING Diagnoses Family history of abdominal aortic aneurysm (AAA) Procedures US SCREENING FOR AAA (2017) US ABDOMINAL AORTA REAL TIME SCREEN STUDY AAA Yael Lake MD [address] [place] [address] Us Imaging Referral ID Status Reason Start Date Expiration Date Visits Requested Visits Authorized [id number] Authorized Auto-Generat ed Referral 04/06/2023 05/05/2024 1 1 [facility] for referral (narrative)* Diagnostic Procedure Only (Routine) - Closed Specialty Diagnoses / Procedures Referred By Contac t Referred To Contact US IMAGING Diagnoses Family history of abdominal aortic aneurysm (AAA) Procedures US SCREENING FOR AAA (2017) US ABDOMINAL AORTA REAL TIME SCREEN STUDY AAA Yael Lake MD [address] [place] [address] [place] [address] Referral ID Status Reason Start Date Expiration Date V isits Requested Visits Authorized [id number] Closed Auto-Generate d Referral 04/06/2023 05/05/2024 1 1 [facility] Summary Purpose Family History No Family History Records FoundNo Family History Records Found No data available for this section No Family History Records Found Advance Directives Documents on File Type Date Recorded Patient Principal Gifts Officer Expl anation Advance Directive(s) 12/02/2019 6:45 AM Advance Directive(s) 11/28/2019 12:50 PM Documents on File Type Date Recorded Patient Principal Gifts Officer Expl anation Advance Directive(s) 12/02/2019 6:45 AM Advance Directive(s) 11/28/2019 12:50 PM Additional Source Comments (unrecognized sect ion and content) No Status Records FoundNo Status Records FoundNo Status Records Found INFORMATION SOURCE (unrecogn ized section and content) DATE CREATED AUTHOR AUTHOR'S ORGANIZ ATION 04/07/2023 [facility] DATE CREATED AUTHOR AUTHOR'S ORGANIZ ATION 07/01/2023 [facility] ([place]) Source Comments (unrecognize d section and content) In the event this informatio n is protected by the Federal Confidentiality of Alcohol and Drug Abuse Patient Records regulations: The Federal rules restrict any use of the information to criminally investigate or prosecute any alcohol or drug abuse patient.[facility] the event this information is protected by the Federal Confidentiality of Alcohol and Drug Abuse Patient Records regulations: The Federal rules restrict any use of the information to criminally investigate or prosecute any alcohol or drug abuse patient.[facility] Hospital[facility] the event this information is protected by the Federal Confidentiality of Alcohol and Drug Abuse Patient Records regulations: The Federal rules restrict any use of the information to criminally investigate or prosecute any alcohol or drug abuse patient.[facility] HospitalIn the event this information is protected by the Federal Confidentiality of Alcohol and Drug Abuse Patient Records regulations: The Federal rules restrict any use of the information to criminally investigate or prosecute any alcohol or drug abuse patient.[facility] HospitalIn the event this information is protected by the Federal Confidentiality of Alcohol and Drug Abuse Patient Records regulations: The Federal rules restrict any use of the information to criminally investigate or prosecute any alcohol or drug abuse patient.[facility] HospitalIn the event this information is protected by the Federal Confidentiality of Alcohol and Drug Abuse Patient Records regulations: The Federal rules restrict any use of the information to criminally investigate or prosecute any alcohol or drug abuse patient.[facility] HospitalIn the event this information is protected by the Federal Confidentiality of Alcohol and Drug Abuse Patient Records regulations: The Federal rules restrict any use of the information to criminally investigate or prosecute any alcohol or drug abuse patient.[facility] HospitalIn the event this information is protected by the Federal Confidentiality of Alcohol and Drug Abuse Patient Records regulations: The Federal rules restrict any use of the information to criminally investigate or prosecute any alcohol or drug abuse patient.[facility] HospitalIn the event this information is protected by the Federal Confidentiality of Alcohol and Drug Abuse Patient Records regulations: The Federal rules restrict any use of the information to criminally investigate or prosecute any alcohol or drug abuse patient.[facility] HospitalIn the event this information is protected by the Federal Confidentiality of Alcohol and Drug Abuse Patient Records regulations: The Federal rules restrict any use of the information to criminally investigate or prosecute any alcohol or drug abuse patient.[facility] HospitalIn the event this information is protected by the Federal Confidentiality of Alcohol and Drug Abuse Patient Records regulations: The Federal rules restrict any use of the information to criminally investigate or prosecute any alcohol or drug abuse patient.[facility] HospitalIn the event this information is protected by the Federal Confidentiality of Alcohol and Drug Abuse Patient Records regulations: The Federal rules restrict any use of the information to criminally investigate or prosecute any alcohol or drug abuse patient.[facility] HospitalIn the event this information is protected by the Federal Confidentiality of Alcohol and Drug Abuse Patient Records regulations: The Federal rules restrict any use of the information to criminally investigate or prosecute any alcohol or drug abuse patient.[facility] HospitalIn the event this information is protected by the Federal Confidentiality of Alcohol and Drug Abuse Patient Records regulations: The Federal rules restrict any use of the information to criminally investigate or prosecute any alcohol or drug abuse patient.[facility] Reason for Visit (unrecogniz ed section and content) Reason Comments F/U 3 Month Reason Comments Nasal Congestion sinus pressure and c ongestion x8 days Reason Comments Anemia concerns Outpatient Colonoscopy due? Reason Comments Refill Request Reason Comments Results Reason Comments Anxiety Reports sertraline i neffective stopped taking 2 weeks ago Reason Comments Covid19 Concern Reason Comments COVID positive Reason Comments Follow Up 3 month hand tremors x for last 3-4 weeks Reason Comments Follow Up Reason Comments Radiology US Specialty Diagnoses / Procedures Referred By Contac t Referred To Contact US IMAGING Diagnoses Family history of abdominal aortic aneurysm (AAA) Procedures US SCREENING FOR AAA (2017) US ABDOMINAL AORTA REAL TIME SCREEN STUDY AAA Yael Lake MD [address] [place] [address] [place] [address] Referral ID Status Reason Start Date Expiration Date V isits Requested Visits Authorized [id number] Closed Auto-Generate d Referral 04/06/2023 05/05/2024 1 1 Care Teams (unrecognized sec tion and content) Clinical Trial Educator Relationship Specialty Start Date End Date Yael Lake MD [address] [place] [address] PCP - General Family Practice 08/12/17 Clinical Trial Educator Relationship Specialty [place] [address] [place] [id number] PCP - General Family Practice 08/12/17 Clinical Trial Educator Relationship Specialty Start Date End Date Yael Lake MD [address] [place] [address] PCP - General Family Practice 08/12/17 Clinical Trial Educator Relationship Specialty Start Date End Date Yael Lake MD [address] [place] [address] PCP - General Family Practice 08/12/17 Clinical Trial Educator Relationship Specialty Start Date End Date Yael Lake MD [address] [place] [address] PCP - General Family Practice 08/12/17 Clinical Trial Educator Relationship Specialty Start Date End Date Yael Lake MD [address] [place] [address] PCP - General Family Practice 08/12/17 Clinical Trial Educator Relationship Specialty Start Date End Date Yael Lake MD [address] [place] [address] PCP - General Family Practice 08/12/17 Clinical Trial Educator Relationship Specialty Start Date End Date Yael Lake MD [address] [place], [place] [address] PCP - General Family Practice 08/12/17 Clinical Trial Educator Relationship Specialty Start Date End Date Yael Lake MD [address] [place], [place] [id number] PCP - General Family Medicine 08/12/17 Clinical Trial Educator Relationship Specialty Start Date End Date Yael Lake MD [address] [place] [address] PCP - General Family Medicine 08/12/17 Clinical Trial Educator Relationship Specialty Start Date End Date Yael Lake MD [address] [facility], [place] [id number] PCP - General Family Medicine 08/12/17 Clinical Trial Educator Relationship Specialty Start Date End Date Yael Lake MD [address] [place], [place] [id number] PCP - General Family Medicine 08/12/17 FOR RECORDS PERTAINING TO PATIENTS WHO ARE OR HAVE BEEN ENROLLED IN A CHEMICAL DEPENDENCY/SUBSTANCEABUSE PROGRAM, SOME INFORMATION MAY BE OMITTED. This clinical summary was aggregated from multiple sources. Caution should be exercised in using it in the provision of clinical care. This summary normalizes information from multiple sources, and as a consequence, information in this document may materially change the coding, format and clinical context of patient data. In addition, data may be omitted in some cases. CLINICAL DECISIONS SHOULD BE BASED ON THE PRIMARY CLINICAL RECORDS. [facility] provides no warranty or guarantee of the accuracy or completeness of information in this document.
[2023-11-19] MEDS: Lactated Ringers 1,000 ML 15 ML IV (09:19)
--- NOTE | 2023-11-19 09:20 | PCM.HP.BLA ---
History and Physical Date of Admission: 11/19/23 Visit Reasons: Dysphagia Chief Complaint: Dysphagia Route Delivery Service Driver Required: No Is patient in pain?: No Allergies meloxicam [From Mobic] Allergy (Intermediate, Verified 10/05/23 08:30) Mucosal lesionspollen extracts Allergy (Intermediate, Verified 10/05/23 08:30) stuffy nosepovidone-iodine [From Betadine] Allergy (Verified 10/05/23 08:30) Rashsoap [From Betadine] Allergy (Verified 10/05/23 08:30) Rash Medications aspirin 81 mg tablet,delayed release 81 mg PO DAILY 08/18/15 [History Confirmed 10/05/23] pantoprazole 40 mg tablet,delayed release (Protonix) 40 mg PO DAILY reflux 07/19/19 [History Confirmed 10/05/23] finasteride 5 mg tablet 5 mg PO DAILY prostate 01/06/20 [History Confirmed 10/05/23] calcium carbonate 500 mg calcium (1,250 mg) tablet (Calcium 500) 600 mg PO DAILY 06/16/23 [History Confirmed 10/05/23] cholecalciferol (vitamin D3) 25 mcg (1,000 unit) capsule 400 unit PO ONCE 06/16/23 [History Confirmed 10/05/23] diphenhydramine HCl 25 mg capsule 50 mg PO HS Sleep 06/16/23 [History Confirmed 10/05/23] ferrous sulfate 325 mg (65 mg iron) tablet 325 mg PO DAILY 06/16/23 [History Confirmed 10/05/23] sertraline 100 mg tablet 100 mg PO DAILY 06/16/23 [History Confirmed 10/05/23] tamsulosin 0.4 mg capsule 0.4 mg PO DAILY 06/16/23 [History Confirmed 10/05/23] [facility] Medical History (Updated 09/04/23 @ 12:[address] Vy Casas MD) Allergies Anemia Anxiety Arthritis Bunion Carpal tunnel syndrome Chronic back pain Gastrointestinal problem Graves disease Shae's disease Health care maintenance Hearing problem High cholesterol History of back problems History of melanoma Hx of gastroesophageal reflux (GERD) Hyperlipidemia Impacted cerumen of left ear Prostate atrophy Sciatica, left side Swallowing difficulty Thyroid disease Vitamin deficiency Surgical History (Updated 09/04/23 @ 11:07 by Tracy Perez) cspine H/O elbow surgery H/O hand surgery History of knee surgery Previous back surgery S/P foot surgery Family History (Updated 06/16/23 @ 11:55 by Sheiladoug Tinajero) Father Emphysema of lung Ruptured (nontraumatic) hernia Abdominal aortic aneurysmMother Cancer AlcoholismSister Cancer Colon cancer Social History (Updated 09/04/23 @ 11:09 by Tracy Perez) Smoking Status: Former smoker alcohol intake: current alcohol intake frequency: a few times a week substance use type: does not use what type of physical activity do you participate in: walking, weight training and other details: CARDIOVASCULAR TRAINING frequency: daily seatbelt use: always do you feel safe at home: Yes HPI HPI HPI: 73-year-old gentleman is being referred by Dr. Vy Casas for surgical consultation regarding ongoing esophageal dysphagia that is been worsening. A written copy of my surgical consult recommendations will be returned to Dr. Vy Casas. By report he has had a previous esophageal dilatation. 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 October 02, 2023 Modified barium swallow performed per speech therapy Diagnosis/Impression Diagnosis: Mild pharyngeal dysphagia R13.12 Impression: The pharyngeal phase is primarily marked by... -Delayed swallow onset with large sips of liquids in the pyriforms and laryngeal vestibule prior to swallow onset. -Minimal anterior hyoid excursion resulting in no epiglottic inversion. -Absent epiglottic inversion, mildly decreased tongue base retraction, and decreased pharyngeal stripping wave resulted in collection of residues in the vallecula with cookie. This residue best cleared with use of head rotation. Head rotation was trialed to attempt better clearing the epiglottis past the posterior pharyngeal wall. RESIDENT CARE TECHNICIAN had the patient trial a dry, uncoated cookie after the study with head rotation again, and he reported no sensation of retention. -Laryngeal penetration of large sips of thin liquids via cup; however, full ejection due to complete laryngeal elevation. No aspiration observed during the study. Chart review reveals that at the [facility] on February 14, 2022 he had a standard esophagram. This was felt to be normal with no hiatal hernia and a 12 mm barium tablet passed without difficulty. The patient has been on pantoprazole he thinks for 3 to 4 years. He states that his previous physician Dr. Martínez Knowles started him on that. He states he does not know why he was placed on that. He denies history of reflux symptoms. He states that he had a previous colonoscopy in 2019 and that that was normal. No bright red blood per rectum or melena. No abdominal pain. No unexpected weight loss. No history of DVT. He states that he exercises 3 times a week on an elliptical. ROS General General: No weight change, appetite, fatigue, colon cancer, breast cancer or weakness HEENT HEENT: No difficulty swallowing, eye injury, eye surgery, swollen glands or hoarseness Endo Endocrine: Yes thyroid disease; No diabetes mellitus, thyroid cancer, Hair loss, heat intolerance or cold intolerance Skin Skin: No rash or changing moles Breast Breast: No left breast lump, right breast lump, nipple discharge, breast pain, abnormal mammogram, abnormal US or breast enlargement Musc Musculoskeletal: No back problems, arthritis, rheumatoid arthritis, gout or joint pain Cardio Cardiovascular: No murmur, pacemaker, heart disease, atrial fibrillation, high blood pressure, heart attack, heart stent, palpitations, shortness of breat with exertion or chest pain Psych Psychiatric: No depression, anxiety or hearing voices Resp Respiratory: No shortness of breath, No sleep apnea, No cough, No COPD, No asthma, No emphysema and No wheezing Gastro Gastrointestinal: No abdominal pain, No nausea or vomiting, No diarrhea, No constipation, No blood in stool, No acid reflux, No hemorrhoids, No ulcers, No gallbladder problem and No black,tarry stools Sanjay Hematologic: No blood thinners, No blood disorders, No bleeding, No anemia and No blood clots Neuro Neurologic: No system reviewed and no additional complaints, except as documented, No as per HPI, No abnormal gait, No abnormal hearing, No abnormal movements, No abnormal speech, No behavioral changes, No burning sensations, No confusion, No convulsions, No disequilibrium, No dizziness, No localized weakness, No frequent falls, No headache(s), No lack of coordination, No loss of vision, No memory loss, No numbness, No other visual disturbances, No radicular pain, No restless legs, No sensory deficit, No syncope, No tingling, No tremor(s), No weakness and No other Exam Const General: cooperative, comfortable and no acute distress [facility] Head: normal to inspection Eyes General: appearance normal, both eyes and all related structures Neck Neck: normal visual inspection Chest Chest palpation & inspection: normal inspection of the chest Resp Effort & Inspection: normal respiratory effort Auscultation: clear to auscultation bilaterally Cardio Rate: regular rate Rhythm: regular rhythm GI Inspection: normal to inspection Palpation: soft and no hepatosplenomegaly Musc Cervical Spine: normal cervical lordosis Skin General: no rashes or lesions noted Neuro General: patient alert, patient awake and patient oriented x3 Extrem General: no calf tenderness Psych Appearance: grossly normal Assessment and Plan Assessment and Plan (1) Swallowing difficulty: Status: Chronic Qualifiers: Dysphagia type: unspecified Qualified Code(s): R13.10 - Dysphagia, unspecified Plan: The patient is mostly having trouble with dry foods when he swallows. He has been evaluated with a modified barium swallow per speech therapy and has been provided instructions due to mild pharyngeal dysfunction. I do recommend performing a esophagogastroduodenoscopy with possible biopsy polypectomy or dilatation if indicated. He is aware of the technique, benefit, risk and alternatives. He has had an opportunity to ask and have questions answered. If no acute pathology is identified then I will presume that likely it is his pharyngeal dysfunction contributing to his concerns. It is of note that he has been on chronic pantoprazole therapy and yet he is unclear why. Careful inspection will pursue. Copy: Dr. Vy Kaur M.D., F.A.C.S I have examined the patient and the H&P has been reviewed. There are no clinical changes since date of exam. Yo Kaur M.D., F.A.C.S.
--- NOTE | 2023-11-19 10:00 | IMM_PTH ---
PATHOLOGY RESULTS PATIENT: OMKAR SMITH LOC: EN U#:[id number] AGE/SX: 73/M ROOM: RE11/19/[address]: Dr. Yo Kaur MD : 1950 BED: DIS: 11/19/2023 SPEC #: [id number] RECD: 11/19/23 13:19 STATUS: KELLY REQ #: [id number] [place]: 11/19/23 10:[address]: Yo Kaur DEPT: IMMUNOHISTOCHEMISTRY RECD BY: Nohemi Cooney ENTERED: 11/19/23 13:19 SP TYPE: IMMUNO OTHR DR: Dr. Vy Casas MD Tissues: Stomach, NOS Procedures: H Pylori (initial) PHYSICIAN & INSTITUTION [place] [address] SPECIMEN INFORMATION: Tissue Source: A - Antrum Clinical Info: Swallowing difficulty Specimen Number: [id number] CPT code: 43488 METHODOLOGY: Deparaffinized sections of prefer/formalin-fixed tissue or PAP/DQ stained slides are incubated with monoclonal/polyclonal antibodies/oligonucleotide probes. Localization is made via biotin free immunoperoxidase method. Appropriate controls are performed and reacted as expected. Results on target cell population are indicated in the following table: RESULTS: ANTIBODY / CLONE RESULT Block A H Pylori (polyclonal) negative These tests were developed and their performance characteristics determined by [facility]. They may not have been cleared or approved by the U.S. Food and Drug Administration. The FDA has determined that such clearance or approval is not necessary. The above immunohistochemical/dualISH markers are ordered and reviewed by the Pathologist. INTERPRETATION: A. Antrum, biopsy: Negative for Helicobacter pylori organisms. SJ:tarah 11/20/2023
--- NOTE | 2023-11-19 10:00 | EGD_PTH ---
PATHOLOGY RESULTS PATIENT: OMKAR SMITH LOC: EN U#:[id number] AGE/SX: 73/M ROOM: RE11/19/[address]: Dr. oY Kaur MD : 1950 BED: DIS: 11/19/2023 SPEC #: [id number] RECD: 11/19/23 12:34 STATUS: KELLY MATIJoseph #: [id number] [place]: 11/19/23 10:[address]: Yo Kaur DEPT: SURGICAL PATHOLOGY RECD BY: Caitlin Lepe ENTERED: 11/19/23 12:37 SP TYPE: EGD BIOPSY OTHR DR: Dr. Vy Casas MD Tissues: Gastric mucous membrane Gastric mucous membrane Esophageal mucous membrane Esophageal mucous membrane Procedures: Special Stain Group II Surgery Specimen Level IV Alcian Blue/PAS (control) HEADER OPERATION: EGD PRE-OP DIAGNOSIS: Swallowing difficulty TISSUE SUBMITTED: A - Antrum biopsy for H. pylori and path, B - Greater curvature polyp biopsy, C - Distal esophagus biopsy, D - Mid esophagus biopsy MICROSCOPIC DIAGNOSIS A. Antrum, biopsy: Mild gastritis. See microscopic description and comment. B. Greater curvature polyp, biopsy: Fundic gland polyp. C. Distal esophagus, biopsy: Fragments of gastroesophageal mucosa with moderate chronic inflammation and mild acute inflammation. Intestinal metaplasia (goblet cell metaplasia) not identified. See comment. D. Mid esophagus, biopsy: Fragments of benign squamous epithelium. SJ:tarah 11/20/2023 COMMENT A. The results of immunohistochemistry for Helicobacter pylori will be reported separately ([id number]). C. Alcian blue/PAS stain with matched control is used in the evaluation of the specimen. This case has been reviewed in consultation with Dr. Hussein who concurs with the above diagnosis. MICROSCOPIC DESCRIPTION Slides are reviewed. A. The specimen shows fragments of gastric mucosa with chronic inflammatory cell infiltrates in the lamina propria consisting of lymphocytes and plasma cells, consistent with mild chronic gastritis. GROSS DESCRIPTION A - Received in fixative is one container labeled with the patient's name and designated antrum biopsy. The specimen consists of one irregular fragment of light sweeney soft tissue that measures 0.3 x 0.3 x 0.1 cm. The specimen is totally submitted in one cassette. B - Received in fixative is one container labeled with the patient's name and designated greater curvature polyp. The specimen consists of one irregular fragment of light sweeney soft tissue that measures 0.5 x 0.2 x 0.1 cm. The specimen is totally submitted in one cassette. C - Received in fixative is one container labeled with the patient's name and designated distal esophagus biopsy. The specimen consists of multiple irregular fragments of light sweeney soft tissue that in aggregate measure 1.0 x 0.3 x 0.1 cm. The specimen is totally submitted in one cassette. D - Received in fixative is one container labeled with the patient's name and designated mid esophagus biopsy. The specimen consists of multiple irregular fragments of light sweeney soft tissue that in aggregate measure 0.6 x 0.5 x 0.1 cm. The specimen is totally submitted in one cassette. / SJ:rg 11/19/2023 TC:3 CPT: 16596 x4, [id number]
--- NOTE | 2023-11-19 10:22 | OP.CCLET_ITS ---
11/19/2023 Vy Casas MD [address] [place] [address] [place] [address] Re : Upper GI endoscopy procedure for Dariel Bo Dear Dr. Casas This procedure was performed on October. My impressions and recommendations are as follows: Impressions : - Normal middle third of esophagus. Biopsied. - Reflux esophagitis with no bleeding. Biopsied. - 1 cm hiatal hernia. - Erythematous mucosa in the antrum. Biopsied. - Multiple gastric polyps. Resected and retrieved. - Normal examined duodenum. Minimal esophagitis and very small hiatal hernia might contribute to esophageal dysphagia but findings appear mild. Will await pathology and contact patient. If symptoms persist then might consider esophageal manometry. Recommendations : - Telephone my office for pathology results in 1 week. - Continue present medications. My findings are described in the full procedure note, which is enclosed. If I can be of further assistance, please feel free to contact me at Doctor phone number(s): Work: . Sincerely, Yo Kaur MD 11/19/2023 10:21:42 AM This report has been signed electronically.
--- NOTE | 2023-11-19 10:22 | OP.EGD_ITS ---
Patient Name: Dariel Bo Procedure Date: 11/19/2023 9:58 AM Date of : 1950 Age: 73 Procedure: Upper GI endoscopy Indications: Dysphagia Providers: Yo Kaur MD Referring MD: Yo Kaur MD Medicines: See the Anesthesia note for documentation of the administered medications Complications: No immediate complications. Procedure: Pre-Anesthesia Assessment: - Prior to the procedure, a History and Physical was performed, and patient medications and allergies were reviewed. The patient's tolerance of previous anesthesia was also reviewed. The risks and benefits of the procedure and the sedation options and risks were discussed with the patient. All questions were answered, and informed consent was obtained. Prior Anticoagulants: The patient has taken no anticoagulant or antiplatelet agents. ASA Grade Assessment: II - A patient with mild systemic disease. After reviewing the risks and benefits, the patient was deemed in satisfactory condition to undergo the procedure. After obtaining informed consent, the endoscope was passed under direct vision. Throughout the procedure, the patient's blood pressure, pulse, and oxygen saturations were monitored continuously. The gastroscope was introduced through the mouth, and advanced to the second part of duodenum. The upper GI endoscopy was accomplished without difficulty. The patient tolerated the procedure well. Scope In: 10:06:27 AM Scope Out: 10:12:38 AM Total Procedure Duration Time 0 hours 6 minutes 11 seconds Findings: The middle third of the esophagus was normal. Biopsies were taken with a cold forceps for histology. Esophagitis with no bleeding was found 40 cm from the incisors. Biopsies were taken with a cold forceps for histology. A 1 cm hiatal hernia was present. Diffuse mildly erythematous mucosa without bleeding was found in the gastric antrum. Biopsies were taken with a cold forceps for histology. Multiple sessile polyps with no bleeding and no stigmata of recent bleeding were found in the stomach. The polyp was removed with a cold biopsy forceps. Resection and retrieval were complete. The examined duodenum was normal. Impression: - Normal middle third of esophagus. Biopsied. - Reflux esophagitis with no bleeding. Biopsied. - 1 cm hiatal hernia. - Erythematous mucosa in the antrum. Biopsied. - Multiple gastric polyps. Resected and retrieved. - Normal examined duodenum. Minimal esophagitis and very small hiatal hernia might contribute to esophageal dysphagia but findings appear mild. Will await pathology and contact patient. If symptoms persist then might consider esophageal manometry. Recommendation: - Telephone my office for pathology results in 1 week. - Continue present medications. Procedure Code(s): --- Professional --- 89104, Esophagogastroduodenoscopy, flexible, transoral; with biopsy, single or multiple Diagnosis Code(s): --- Professional --- K21.00, Gastro-esophageal reflux disease with esophagitis, without bleeding K44.9, Diaphragmatic hernia without obstruction or gangrene K31.89, Other diseases of stomach and duodenum K31.7, Polyp of stomach and duodenum R13.10, Dysphagia, unspecified CPT copyright 2021 [employer]. All rights reserved. The codes documented in this report are preliminary and upon medical records coder review may be revised to meet current compliance requirements. Yo Kaur MD 11/19/2023 10:21:42 AM This report has been signed electronically. Number of Addenda: 0 Note Initiated On: 11/19/2023 9:58 AM
== END 2023-11-19 11:04 | disposition home or self-care (01) ==
LOC: EN 08:58 → AC 08:59
PROVIDERS: PCP Internal Medicine; Referring Provider Surgery; Visit Provider Surgery
PROC: 0DJ08ZZ Inspection of Upper Intestinal Tract, Via Natural or Artificial Opening Endoscopic (ICD-10-PCS; CPT 43235; principal; 2023-11-19 09:55)
DX: K44.9 Diaphragmatic hernia without obstruction or gangrene (principal); R13.12 Dysphagia, oropharyngeal phase; K21.00 Gastro-esophageal reflux disease with esophagitis, without bleeding; F41.9 Anxiety disorder, unspecified; K31.7 Polyp of stomach and duodenum; Z87.891 Personal history of nicotine dependence; E06.3 Autoimmune thyroiditis; K29.70 Gastritis, unspecified, without bleeding; K22.70 Barrett's esophagus without dysplasia; Z79.82 Long term (current) use of aspirin; Z79.899 Other long term (current) drug therapy; E05.00 Thyrotoxicosis with diffuse goiter without thyrotoxic crisis or storm
CPT/HCPCS: 43239; 88305; 88313; 88342; J7120; J2405

== ENCOUNTER → 2023-12-07 | Outpatient (CLI) | payer MEDICARE, SELFPAY ==
[2023-12-07 09:49] LABS: Bacteria 0 SEEN /hpf (None Seen); Mucous, Urine 0 SEEN /hpf (<or=2+); Squamous Epithelial Cells - UA 0 SEEN /hpf (0-5); White Blood Cells 0 SEEN /hpf (0-5)
--- OUTSIDE RECORDS SUMMARY | 2023-12-07 10:13 | XMS RPT_ITS | CCD ---
Author Name Unknown Address [address] [place] [address] Organization [facility] Care Team Providers Care Metal Baler Name Role Phone Johnie Luna Unavailable JIGNA DORAN Unavailable Unavailable JIGNA DORAN Unavailable Unavailable LOKI WAGGONER Unavailable Unavailable Johnie Luna Unavailable YAEL LAKE MD Primary Care Physician Yael Lake MD Primary Care Provider Yael [...] YAEL Hansen MD Primary Care Physician [phone] IVON SINGH PA-C Attending Unavailable YAEL LAKE MD Primary Care IVON Sargent PA-C Referring Unavailable CONNIE GARCIA MD Attending Denita LAKE MD, YAEL Primary Care Denita marvin Allergies Allergy Classification Reported Allergen(s) Allergy Type Date of Onset Reaction(s) Facility (18 sources) Povidone-Iodine; Translations: [povidone iodine topical] Drug Allergy 02-10-2006 [facility] Medications Current Medications Medication Drug Class(es) Dates [...] 66 mm[Hg] Yael Lake MD Work Phone: [facility] 04-06-2023 09:38-0400 Heart rate 52 /min Yael Lake MD Work Phone: [facility] 04-06-2023 09:38-0400 Respiratory rate 16 /min Yael Lake MD Work Phone: [facility] 04-06-2023 09:38-0400 SaO2% (BldA) [Mass fraction] 96 % Yael Lake MD Work Phone: [facility] 04-06-2023 09:38-0400 Systolic blood pressure 112 mm[Hg] Yael Lake MD Work Phone: [facility] 10-06-2022 09:38-0500 Body weight 84.28 kg Yael Lake MD Work Phone: [facility] 10-06-2022 09:38-0500 Diastolic blood pressure 68 mm[Hg] Yael Lake MD Work Phone: [facility] 10-06-2022 09:38-0500 Heart rate 59 /min Yael Lake MD Work Phone: [facility] 10-06-2022 09:38-0500 Respiratory rate 16 /min Yael Lake MD Work Phone: [facility] 10-06-2022 09:38-0500 SaO2% (BldA) [Mass fraction] 97 % Yael Lake MD Work Phone: [facility] 10-06-2022 09:38-0500 Systolic blood pressure 104 mm[Hg] Yael Lake MD Work Phone: [facility] 07-04-2022 09:47-0400 Body weight 82.56 kg Yael Lake MD Work Phone: [facility] 07-04-2022 09:47-0400 Diastolic blood pressure 60 mm[Hg] Yael Lake MD Work Phone: [facility] 07-04-2022 09:47-0400 Heart rate 59 /min Yael Lake MD Work Phone: [facility] 07-04-2022 09:47-0400 Respiratory rate 16 /min Yael Lake MD Work Phone: [facility] 07-04-2022 09:47-0400 SaO2% (BldA) [Mass fraction] 96 % Yael Lake MD Work Phone: [facility] 07-04-2022 09:47-0400 Systolic blood pressure 102 mm[Hg] Yael Lake MD Work Phone: [facility] 05-06-2022 14:54-0400 Body weight 82.56 kg Yael Lake MD Work Phone: [facility] 05-06-2022 14:54-0400 Diastolic blood pressure 60 mm[Hg] Yael Lake MD Work Phone: [facility] 05-06-2022 14:54-0400 Heart rate 63 /min Yael Lake MD Work Phone: [facility] 05-06-2022 14:54-0400 Respiratory rate 16 /min Yael Lake MD Work Phone: [facility] 05-06-2022 14:54-0400 SaO2% (BldA) [Mass fraction] 97 % Yael Lake MD Work Phone: [facility] 05-06-2022 14:54-0400 Systolic blood pressure 106 mm[Hg] Yael Lake MD Work Phone: [facility] 03-13-2022 09:43-0400 Body temperature 98.01 [degF] Jerrica Athy PA-C Work Phone: [facility] 03-13-2022 09:43-0400 Body weight 85.09 kg Jerrica Athy PA-C Work Phone: [facility] 03-13-2022 09:43-0400 Diastolic blood pressure 78 mm[Hg] Jerrica Athy PA-C Work Phone: [facility] 03-13-2022 09:43-0400 Heart rate 67 /min Jerrica Athy PA-C Work Phone: [facility] 03-13-2022 09:43-0400 Respiratory rate 20 /min Jerrica Athy PA-C Work Phone: [facility] 03-13-2022 09:43-0400 SaO2% (BldA) [Mass fraction] 98 % Jerrica Athy PA-C Work Phone: [facility] 03-13-2022 09:43-0400 Systolic blood pressure 122 mm[Hg] Jerrica Anguiano PA-C Work Phone: [facility] 02-10-2022 09:50-0400 Body weight 84.91 kg Yael Lake MD Work Phone: [facility] 02-10-2022 09:50-0400 Diastolic blood pressure 70 mm[Hg] Yael Lake MD Work Phone: [facility] 02-10-2022 09:50-0400 Heart rate 59 /min Yael Lake MD Work Phone: [facility] 02-10-2022 09:50-0400 Respiratory rate 18 /min Yael Lake MD Work Phone: [facility] 02-10-2022 09:50-0400 SaO2% (BldA) [Mass fraction] 97 % Yael Lake MD Work Phone: [facility] 02-10-2022 09:50-0400 Systolic blood pressure 118 mm[Hg] Yael Lake MD Work Phone: [facility] 08-23-2014 08:56-0400 Weight 86.18 [facility] Work Phone: 07-12-2014 10:17-0400 BP Diastolic 78 mm[Hg] Johnie Luna [facility] Work Phone: 07-12-2014 10:17-0400 BP Systolic 115 mm[Hg] [facility] Work Phone: 07-12-2014 10:17-0400 Height 180.34 cm Johnie Luna [facility] Work Phone: Encounters Encounter Date Encounter Type Care Provider Facility Start: 06-30-2023 End: 07-01-2023 ambulatory CONNIE GARCIA MD Facility:B Start: 06-30-2023 End: 06-30-2023 Patient encounter procedure CONNIE GARCIA MD [facility] Start: 05-06-2023 Refill Yael Lake MD Work Phone: [facility] [place] Procedures Date Procedure Procedure Detail Performing Clinician Start: 04-10-2023 Us abdominal aorta r eal time screen study aaa Yael Lake MD Work Phone: Start: 04-06-2023 Lipid 1996 panel - S maikel or Plasma Us 1 Work Phone: Start: 07-14-2022 Adult depression screening assessment Landon Hurst APRN.GEOMETRY TEACHER Work Phone: Start: 02-10-2022 Adult depression screening [...] panel - Serum or Plasma Lipid Screening [facility] Start: 04-06-2028 LIPID SCREEN LIPID SCREEN [facility] Start: 11-17-2027 Urine microalbumin profile [facility] Start: 04-25-2026 LIPID SCREEN LIPID SCREEN [facility] Start: 04-06-2026 DIABETES SCREEN DIABETES SCREEN [facility] Start: 04-06-2026 Diabetes Screening Diabetes Screening [facility] Start: 05-06-2025 DIABETES SCREEN DIABETES SCREEN [facility] Start: 12-02-2024 Colonoscopy COLONOSCOPY [facility] Start: 12-02-2024 COLORECTAL CANCER SCREENING COLORECTAL CANCER SCREENING [facility] Start: 04-25-2024 DIABETES SCREEN DIABETES SCREEN [facility] Start: 04-06-2024 ANNUAL PCP TEAM CHRONIC DISEASE VISIT ANNUAL PCP TEAM CHRONIC DISEASE VISIT [facility] Start: 10-06-2023 ANNUAL PCP TEAM CHRONIC DISEASE VISIT ANNUAL PCP TEAM CHRONIC DISEASE VISIT [facility] Start: 07-24-2023 Covid-19 Vaccine ( season) Covid-19 Vaccine () [facility] Start: 07-24-2023 Influenza vaccination Influenza Vaccine (#1) [facility] Start: 07-15-2023 ANNUAL PCP TEAM CHRONIC DISEASE VISIT ANNUAL PCP TEAM CHRONIC DISEASE VISIT [facility] Start: 07-14-2023 Adult depression screening assessment DEPRESSION SCREENING [facility] Start: 07-04-2023 ANNUAL PCP TEAM CHRONIC DISEASE VISIT ANNUAL PCP TEAM CHRONIC DISEASE VISIT [facility] Start: 05-06-2023 ANNUAL PCP TEAM CHRONIC DISEASE VISIT ANNUAL PCP TEAM CHRONIC DISEASE VISIT [facility] Start: 02-10-2023 Adult depression screening assessment DEPRESSION SCREENING [facility] Start: 02-10-2023 ANNUAL PCP TEAM CHRONIC DISEASE VISIT ANNUAL PCP TEAM CHRONIC DISEASE VISIT [facility] Start: 11-23-2022 ADVANCE DIRECTIVE DISCUSSION ADVANCE DIRECTIVE DISCUSSION [facility] Start: 11-23-2022 DEPRESSION ASSESSMENT DEPRESSION ASSESSMENT [facility] Start: 07-24-2022 Influenza vaccination INFLUENZA (#1) [facility] Start: 05-06-2022 End: 07-06-2022 Comprehensive metabolic 2000 panel - Serum or Plasma [facility] Work Phone: Immunizations Immunization Date Immunization Notes Care Provider [facility] 08-14-2022 influenza, high-dose , quadrivalent vaccine (FLUZONE HIGH DOSE QUADRIVALENT) Yael Lake MD Work Phone: [facility] 08-14-2022 influenza virus vaccine, unspecified formulation Us 1 Work Phone: [facility] 09-13-2021 COVID-19 vaccine, fu ll dose (MODERNA) Yael Lake MD Work Phone: [facility] 09-06-2021 influenza, high dose seasonal, preservative-free Yael Lake MD Work Phone: [facility] 02-19-2021 COVID-19 vaccine, fu ll dose (MODERNA) Yael Lake MD Work Phone: [facility] 01-22-2021 COVID-19 vaccine, fu ll dose (MODERNA) Yael Lake MD Work Phone: [facility] 09-07-2020 influenza, seasonal, injectable Yael Lake MD Work Phone: [facility] 09-14-2019 zoster vaccine recombinant Yael Lake MD Work Phone: [facility] 07-01-2019 zoster vaccine recombinant Yael Lake MD Work Phone: [facility] 10-06-2018 pneumococcal polysaccharide vaccine, 23 valent Yael Lake MD Work Phone: [facility] 11-17-2017 tetanus toxoid, redu johnna diphtheria toxoid, and acellular pertussis vaccine, adsorbed Yael Lake MD Work Phone: [facility] Work Phone: 09-14-2017 influenza, high dose seasonal, preservative-free Yael Lake MD Work Phone: [facility] 08-12-2017 pneumococcal conjuga te vaccine, 13 valent Yael Lake MD Work Phone: [facility] Payers Date Payer Category Payer Medicare AETNA MEDICARE A ETNA MEDICARE PPO [id number] 2021-Present [phone] [address] [place] [address] PPO [id number] 2021 Medicare AETNA MEDICARE A ETNA MEDICARE PPO [id number] 2021-Present [phone] [address] [place] [address] PPO [id number] 2021 Medicare [id number] 2017 Unknown [id number] 1950 Unknown [id number] 1950 Unknown [id number] Social History Date Type Detail Facility Start: 02-09-2020 Never smoked t obacco (finding) [facility] Sex Assigned At Male [facility] Start: 08-12-2017 End: 04-06-2023 Tobacco smoking status NHIS Ex-smoker [facility] Work Phone: Start: 08-12-2017 End: 04-06-2023 Tobacco use and exposure Former smokeless tobacco user [facility] Work Phone: End: 08-12-2002 History of tobacco use User of smokeless tobacco [facility] Work Phone: Start: 02-10-2022 End: 04-06-2023 Alcohol intake Current drinker of alcohol (finding) [facility] Start: 02-10-2022 End: 04-06-2023 Alcohol intake [facility] Start: 04-04-2020 End: 07-14-2022 History SDOH Alcohol Frequency 3 [facility] Start: 04-04-2020 End: 07-14-2022 History SDOH Alcohol Std Drinks 1 [facility] Start: 10-06-2020 History SDOH Social Connections Phone 4 [facility] Start: 10-06-2020 End: 07-14-2022 History SDOH Social Connections Meetings 2 [facility] Start: 10-06-2020 End: 07-14-2022 History SDOH Physical Activity DPW 6 [facility] Start: 04-04-2020 End: 07-14-2022 History SDOH Financial 5 [facility] Start: 10-06-2020 Education 15 [facility] Start: 1950 Sex Assigned At Not on file [facility] Start: 01-31-2022 End: 10-06-2022 Exposure to SARS-CoV-2 (event) Not sure [facility] History of tobacco use Current smoker [facility] Work Phone: History of tobacco use Cigarette Smoker [facility] Work Phone: Start: 07-14-2022 End: 04-06-2023 Social connection and isolation panel [facility] Do you belong to any clubs or organizations such as faith groups, unions, fraternal or athletic groups, or school groups? Yes [facility] Are you now , , , , never or living with a partner? [facility] How often to you hav e a drink containing alcohol? 2-4 times a month [facility] How many standard dr inks containing alcohol do you have on a typical day? 1 or 2 [facility] How often do you hav e 6 or more drinks on 1 occasion? Never [facility] How hard is it for y ou to pay for the very basics like food, housing, medical care, and heating Not hard at all [facility] Do you feel stress - tense, restless, nervous, or anxious, or unable to sleep at night because your mind is troubled all the time - these days [OSQ] To some extent [facility] (I/We) worried love er (my/our) food would run out before (I/we) got money to buy more. Never true [facility] In the past 12 month s, was there a time when you were not able to pay the mortgage or rent on time? No [facility] Functional Status Date Assessment Result Facility 02-23-2023 [...] Can (delt): neg Empty Can (impin): neg [facility] Clinical Notes 01-20-2017 to 05-06-2023 Telephone Encounter [...] advise. Jessenia Ji documented in this encounter [facility] 04-10-2023 History of Present illness Narrative Radiology [...] 2023 10:01 AM documented in this encounter [facility] 04-06-2023 Note HNO ID: [id number] Author: Yael Lake MD Service: ? Author [...] abdominal exam, Abdomen (more content not included)... [facility] 04-06-2023 Instructions Yael Lake MD - 04/06/2023 10:06 AM EDT Recheck labs in 3 months. documented in this encounter [facility] 04-06-2023 History of Present illness Narrative Chief [...] Abs Lymph 1.00 - 4.00 k/uL 1.67 Early% % 8.2 Abs Early <0.87 k/uL 0.41 Eosin% % 3.0 Abs [...] E78.00 Start statin to reduce risk of DE and stroke. Recheck labs in 3 months. [...] Yael Lake MD documented in this encounter [facility] 10-06-2022 Note HNO ID: [id number] Author: Yael Lake MD Service: ? Author [...] medication. With his recent trip to the counts include [facility] beds at the [facility], he was having panic symptoms anytime he was in the car on unfamiliar roads. Does not have problem driving in [facility]. Denies excessive worrying, racing thoughts, inability [...] oz) SpO2 9 (more content not included)... [facility] 10-06-2022 History of Present illness Narrative Chief [...] medication. With his recent trip to the counts include [facility] beds at the [facility], he was having panic symptoms anytime he was in the car on unfamiliar roads. Does not have problem driving in [facility]. Denies excessive worrying, racing thoughts, inability [...] Yael Lake MD documented in this encounter [facility] 07-15-2022 Note HNO ID: [id number] Author: Landon Hurst APRN.GEOMETRY TEACHER Service: ? Author Type: Nurse Practitioner Type: Progress Notes Filed: 07/15/2022 12:35 PM Note Text: Telemedicine Evaluation for COVID-19 Infection MyChart video visit was used for evaluation of this patient. Location of patient: [facility] Omkar Smith is a 72 year [...] discussed with patient, verbalizes understanding Landon Hurst APRN.GEOMETRY TEACHER Prescription instructions reviewed with patient as applicable. Patient advised if symptoms do not improve or if symptoms worsen sooner, to contact their primary care physician. Potential red flag symptoms discussed with the patient. Reviewed appropriate action plan to take if red flag symptoms occur. Patient agreeable to treatment plan. Nirmatrelvir/Ritonavir (Paxlovid) Eligibility and Patient Discussion [facility] Formulary Restriction Criteria: Adult outpatients 18 years [...] potentially related to (more content not included)... [place] [id number] Instructions Landon Hurst APRN.GEOMETRY TEACHER - 07/15/2022 9:03 AM EDT FACT SHEET FOR PATIENTS, PARENTS, AND CAREGIVERS EMERGENCY USE AUTHORIZATION (EUA) OF PAXLOVID FOR CORONAVIRUS DISEASE 2019 (COVID-19) You are being given this Fact Sheet because your healthcare provider believes it is necessary to provide you with PAXLOVID for the treatment of wjdx-wp-zjbeycpy coronavirus disease (COVID-19) caused by the SARS-CoV-2 [...] virus. COVID-19 illnesses have ranged from very exap-kq-dpboiw, including illness resulting in . While information [...] is an investigational medicine used to treat yiqn-pc-osjwbtlf COVID-19 in adults and children [12 years [...] of using PAXLOVID to treat people with etlq-ov-bgxdimxl COVID-19. The FDA has authorized the emergency use of PAXLOVID for the treatment of eweo-qh-pezrqnup COVID-19 in adults and children [12 years [...] the medicines you take, including prescription and trvy-ohl-wuledgb medicines, vitamins, and herbal supplements. Some medicines [...] oral midazolam Apalutamide Carbamazepine, phenobarbital, phenytoin Rifampin [place] Wort (hypericum perforatum) Taking PAXLOVID with [...] (remdesivir) is FDA-approved for the treatment of qaow-wi-rrjmcmhu COVID-19 in certain adults and children. Talk with your doctor to see if Veklury is appropriate for you. Like PAXLOVID, FDA may also allow for the emergency use of other medicines to treat people with COVID-19. Go to https://www.fda.gov/emergency-prepared ness-andresponse/dwo-owupk-xabtzxpcqr- sjh-itmrwb-ecuzwxlho/hljpabpij-mlc-ymw horization for information on the emergency use [...] if I am or ? There is agricultural research technologist treating women or mothers with PAXLOVID. [...] to FDA MedWatch at www.fda.gov/medwatch or call 2-168-VAN8222 or you can report side effects to [employer]. at the contact information provided below. Website Fax number Telephone number [employer] How should I store PAXLOVID? Store PAXLOVID [...] (EUA). The EUA is supported by a Grounds Person of Health and Human Service (HHS) declaration that circumstances exist to justify the emergency use of drugs and biological products during the COVID-19 pandemic. PAXLOVID for the treatment of vjyo-mk-zwdomsfm COVID-19 in adults and children [12 years [...] telephone number provided below. Website Telephone number [employer] (5-800-D03-LFUY) You can also go to www.[employer] or call for more information. Pfizer Distributed by [employer] [place] [address] [id number] Revised: 07 February 2022 documented in this encounter [facility] 07-15-2022 History of Present illness Narrative Telemedicine Evaluation for COVID-19 Infection MyChart video visit was used for evaluation of this patient. Location of patient: [facility] Omkar Smith is a 72 year [...] discussed with patient, verbalizes understanding Landon Hurst APRN.GEOMETRY TEACHER Prescription instructions reviewed with patient as applicable. Patient advised if symptoms do not improve or if symptoms worsen sooner, to contact their primary care physician. Potential red flag symptoms discussed with the patient. Reviewed appropriate action plan to take if red flag symptoms occur. Patient agreeable to treatment plan. Nirmatrelvir/Ritonavir (Paxlovid) Eligibility and Patient Discussion [facility] Formulary Restriction Criteria: Adult outpatients 18 years [...] to proceeding with nirmatrelvir/ritonavir treatment. Landon Hurst APRN.GEOMETRY TEACHER July 15, 2022 9:02 AM I spent a total of 20 minutes on the date of the service which included preparing to see the patient, cmcs-ia-mgtd patient care, completing clinical documentation, obtaining and/or [...] which included preparing to see the patient, xtuh-rb-avih patient care, completing clinical documentation, obtaining and/or reviewing separately obtained history, performing a medically appropriate examination, counseling and educating the patient/family/caregiver, and ordering medications, tests, or procedures. documented in this encounter [facility] 07-14-2022 Miscellaneous Notes Agree. Patient's calling to let PCP know patient had positive home test for COVID today. His symptoms started yesterday. She says he has mild symptoms of a headache, dry cough and runny nose. She is asking about possible treatment. Advised to schedule VV for discussion of antiviral medication. Transferred to geophysical data technician for appointment. Sheila Pak RN documented in this encounter [facility] 07-04-2022 Note HNO ID: [id number] Author: Yael Lake MD Service: ? Author [...] medication. With his recent trip to [place] [facility], he was having panic symptoms anytime he was in the car on unfamiliar roads. Does not have problem driving in [facility]. Denies excessive worrying, racing thoughts, inability to control worrying, insomnia, difficiulty concentrating, irritability since he stopped the Zoloft. Not seeing counselor at this time. Just had thyroid labs through [facility] by endocrinology and was reportedly normal. Past [...] on 04/25/2026 DTAP,TDAP,T (more content not included)... [facility] 07-04-2022 History of Present illness Narrative Chief [...] medication. With his recent trip to the counts include [facility] beds at the [facility], he was having panic symptoms anytime he was in the car on unfamiliar roads. Does not have problem driving in [facility]. Denies excessive worrying, racing thoughts, inability to control worrying, insomnia, difficiulty concentrating, irritability since he stopped the Zoloft. Not seeing counselor at this time. Just had thyroid labs through [facility] by endocrinology and was reportedly normal. Past [...] Yael Lake MD documented in this encounter [facility] 06-26-2022 Miscellaneous Notes Notified via [employer]. Recommend OV to discuss symptoms and med adjustment. documented in this encounter [facility] 05-07-2022 Miscellaneous Notes Patient notified of results, verbalizes understanding of instructions. Caitlin Alex MA ----- Message from Yael Lake MD sent at 05/07/2022 8:08 AM EDT ----- Normal labs aside from mildly elevated sugar on non fasting blood work. Liver function normal, may start terbinafine and recheck LFTs in 6 weeks as ordered. documented in this encounter [facility] 05-06-2022 Note HNO ID: [id number] Author: Yael Lake MD Service: ? Author [...] EXAM: BP 1 (more content not included)... [facility] 05-06-2022 Miscellaneous Notes Patient phones requesting refills as follows: Pending Prescriptions Disp Refills SERTRALINE 50 MG TABLET 30 tablet 2 Sig: Take 1 tablet by mouth once daily. VEL: No Please review and advise. Claudine Polanco LPN [facility] [facility] 05-06-2022 History of Present illness Narrative Chief [...] appointment as scheduled. documented in this encounter [facility] 03-13-2022 History of Present illness Narrative This note was created using [employer]. Subjective Omkar Smith is a 71 year old male. HPI Patient presents with sinus pressure and congestion over the past 8 days. He has tried Flonase and an [id number] cough and cold medication without any relief. [...] Jerrica Anguiano PA-C documented in this encounter [facility] 02-10-2022 Miscellaneous Notes Imaging and referral order [...] get him scheduled. documented in this encounter [facility] 02-10-2022 History of Present illness Narrative Chief Complaint Patient presents with: F/U 3 Month HPI Omkar Smith is a 71 year old male who presents here today for routine follow up. Patient states that he had labs drawn on 02/06 at [facility] which I have not received. He saw [...] Yael Lake MD documented in this encounter [facility] documented as of this encounter (statuses as of 02/11/2022) [facility] History of Past illness Narrative* Problem Noted Date Resolved Date Benign non-nodular prostatic hyperplasia without lower urinary tract symptoms 01/20/2017 10/06/2018 Special screening for malignant neoplasms, colon 02/15/2015 02/15/2015 Elevated PSA 04/05/2018 documented as of this encounter (statuses as of 02/11/2022) [facility] History of Past illness Narrative* Problem Noted Date Resolved Date Benign non-nodular prostatic hyperplasia without lower urinary tract symptoms 01/20/2017 10/06/2018 Special screening for malignant neoplasms, colon 02/15/2015 02/15/2015 Elevated PSA 04/05/2018 documented as of this encounter (statuses as of 03/13/2022) [facility] History of Past illness Narrative* Problem Noted Date Resolved Date Benign non-nodular prostatic hyperplasia without lower urinary tract symptoms 01/20/2017 10/06/2018 Special screening for malignant neoplasms, colon 02/15/2015 02/15/2015 Elevated PSA 04/05/2018 documented as of this encounter (statuses as of 05/06/2022) [facility] History of Past illness Narrative* Problem Noted Date Resolved Date Benign non-nodular prostatic hyperplasia without lower urinary tract symptoms 01/20/2017 10/06/2018 Special screening for malignant neoplasms, colon 02/15/2015 02/15/2015 Elevated PSA 04/05/2018 documented as of this encounter (statuses as of 05/06/2022) [place] [address]-28-2017 History of Past illness Narrative* Problem Noted Date Resolved Date Benign non-nodular prostatic hyperplasia without lower urinary tract symptoms 01/20/2017 10/06/2018 Special screening for malignant neoplasms, colon 02/15/2015 02/15/2015 Elevated PSA 04/05/2018 documented as of this encounter (statuses as of 05/07/2022) [address]28-2017 History of Past illness Narrative* Problem Noted Date Resolved Date Benign non-nodular prostatic hyperplasia without lower urinary tract symptoms 01/20/2017 10/06/2018 Special screening for malignant neoplasms, colon 02/15/2015 02/15/2015 Elevated PSA 04/05/2018 documented as of this encounter (statuses as of 06/26/2022) [address]28-2017 History of Past illness Narrative* Problem Noted Date Resolved Date Benign non-nodular prostatic hyperplasia without lower urinary tract symptoms 01/20/2017 10/06/2018 Special screening for malignant neoplasms, colon 02/15/2015 02/15/2015 Elevated PSA 04/05/2018 documented as of this encounter (statuses as of 07/04/2022) [address]28-2017 History of Past illness Narrative* Problem Noted Date Resolved Date Benign non-nodular prostatic hyperplasia without lower urinary tract symptoms 01/20/2017 10/06/2018 Special screening for malignant neoplasms, colon 02/15/2015 02/15/2015 Elevated PSA 04/05/2018 documented as of this encounter (statuses as of 07/15/2022) [address]28-2017 History of Past illness Narrative* Problem Noted Date Resolved Date Benign non-nodular prostatic hyperplasia without lower urinary tract symptoms 01/20/2017 10/06/2018 Special screening for malignant neoplasms, colon 02/15/2015 02/15/2015 Elevated PSA 04/05/2018 documented as of this encounter (statuses as of 07/16/2022) [address]28-2017 History of Past illness Narrative* Problem Noted Date Resolved Date Benign non-nodular prostatic hyperplasia without lower urinary tract symptoms 01/20/2017 10/06/2018 Special screening for malignant neoplasms, colon 02/15/2015 02/15/2015 Elevated PSA 04/05/2018 documented as of this encounter (statuses as of 10/06/2022) [address]28-2017 History of Past illness Narrative* Problem Noted Date Resolved Date Benign non-nodular prostatic hyperplasia without lower urinary tract symptoms 01/20/2017 10/06/2018 Special screening for malignant neoplasms, colon 02/15/2015 02/15/2015 Elevated PSA 04/05/2018 documented as of this encounter (statuses as of 04/07/2023) [facility] History of Past illness Narrative* Problem Noted Date Resolved Date Benign non-nodular prostatic hyperplasia without lower urinary tract symptoms 01/20/2017 10/06/2018 Special screening for malignant neoplasms, colon 02/15/2015 02/15/2015 Elevated PSA 04/05/2018 documented as of this encounter (statuses as of 05/06/2023) [facility] History of Past illness Narrative* Problem Noted Date Diagnosed Date Resolved Date Benign non-nodular prostatic hyperplasia without lower urinary tract symptoms 01/20/2017 Special screening for malign ant neoplasms, colon 02/15/2015 02/15/2015 Elevated PSA 04/05/2018 documented as of this encounter (statuses as of 09/27/2023) [facility] Appointment Date:03/06/2022 09:00:00 AM Scheduled Provider:CONNIE GARCIA MD Location:[facility] Appointment Type:ENDO OV Future Scheduled Tests Laboratory* Ferritin 09/06/21 * Iron Level 09/06/21 * Lactate Dehydrogenase 09/06/21 * Thyroid Stimulating Hormone 03/07/22 * Free T4 03/07/22 * Complete Blood Count 09/06/21 * Complete Blood Count 03/07/22 * Free T3 03/07/22 * Complete Metabolic Panel 03/07/22 * TIBC 09/06/21 [facility] Evaluation + Plan note Future Appointments Appointment Date:07/02/2023 09:00:00 AM Scheduled Provider:CONNIE GARCIA MD Location:[facility] Appointment Type:ENDO OV Future Scheduled Tests Laboratory* Thyroid Stimulating Hormone 07/03/23 * Free T4 07/03/23 * Free T3 07/03/23 * Thyroid Stimulating Immunoglobulin 07/03/23 * Complete Metabolic Panel 07/03/23 * anti-Thyroid Peroxidase 07/03/23 [facility] Evaluation + Plan note Future Appointments Appointment Date:07/02/2023 09:00:00 AM Scheduled Provider:CONNIE GARCIA MD Location:[facility] Appointment Type:ENDO OV Diagnostic Tests Pending * Thyroid Stimulating Immunoglobulin [facility]23 [facility]* Diagnosis Esophageal dysphagia- Primary Dysphagia, pharyngoesophageal phase documented in this encounter [facility] note* Diagnosis SHEA (generalized anxiety disorder)- [...] crisis or storm [facility] Diagnosis Acute non-recurrent frontal sinusitis- Primary documented in this encounter [facility] note* Diagnosis SHEA (generalized anxiety disorder)- Primary Generalized anxiety disorder Esophageal dysphagia Dysphagia, pharyngoesophageal phase Onychomycosis Dermatophytosis of nail Traumatic loss of toenail of left great toe, initial encounter Hyperthyroidism Thyrotoxicosis without mention of goiter or other cause, without mention of thyrotoxic crisis or storm [facility] Diagnosis SHEA (generalized anxiety disorder) Generalized anxiety disorder [facility]* Diagnosis SHEA (generalized anxiety disorder)- Primary Generalized anxiety disorder Situational anxiety Other anxiety states documented in this encounter [facility] note* Diagnosis Telehealth encounter for confirmed COVID-19- Primary [facility]* Diagnosis SHEA (generalized anxiety disorder)- Primary Generalized anxiety disorder Situational anxiety Other anxiety states BPH with obstruction/lower urinary tract symptoms Hypertrophy of prostate with urinary obstruction and other lower urinary tract symptoms (LUTS) Benign essential tremor Essential and other specified forms of tremor [facility] Diagnosis Skin irritation- Primary Unspecified disorder [...] trunk, except scrotum [facility] Diagnosis SHEA (generalized anxiety disorder) Generalized anxiety disorder [facility] Diagnosis Family history of abdominal aortic aneurysm (AAA) documented in this encounter [facility] course Narrative No data available for this section [facility] Hospital Discharge instructions No data available for this section [facility] Progress note No data available for this section [facility] Reason for referral (narrative)* Diagnostic Procedure Only (Routine) - Pending Review Specialty Diagnoses / Procedures Referred By Guero haynes Referred To Contact XR IMAGING Diagnoses Esophageal dysphagia Procedures XR ESOPHAGRAM RADIOLOGIC EXAM ESOPHAGUS SINGLE CONTRAST STUDY Yael Lake MD [address] [place] [address] Xr Imaging Referral ID Status Reason Start Date Expiration Date Visits Requested Visits Authorized [id number] Pending Review Auto-Generat ed Referral 02/10/2022 03/12/2023 1 1 * Consult, Test, Treat (Routine) - Pending Review Specialty Diagnoses / Procedures Referred By Guero haynes Referred To Contact Gastroenterology Diagnoses Esophageal dysphagia Procedures CONSULT TO GASTROENTEROLOGY OFFICE/OUTPATIENT [facility] 60-74 MINUTES Yael Lake MD [address] [place] [address] Referral ID Status Reason Start Date Expiration Date Visits Requested Visits Authorized [id number] Pending Review PCP Requested Referral 02/10/2022 02/10/2023 [address] [facility] for referral (narrative)* Diagnostic Procedure Only (Routine) - Authorized Specialty Diagnoses / Procedures Referred By Contac t Referred To Contact US IMAGING Diagnoses Family history of abdominal aortic aneurysm (AAA) Procedures US SCREENING FOR AAA (2017) US ABDOMINAL AORTA REAL TIME SCREEN STUDY AAA Yael Lake MD [address] [place] [address] Us Imaging Referral ID Status Reason Start Date Expiration Date Visits Requested Visits Authorized [id number] Authorized Auto-Generat ed Referral 04/06/2023 05/05/2024 [address] [facility] for referral (narrative)* Diagnostic Procedure Only (Routine) - Closed Specialty Diagnoses / Procedures Referred By Contac t Referred To Contact US IMAGING Diagnoses Family history of abdominal aortic aneurysm (AAA) Procedures US SCREENING FOR AAA (2017) US ABDOMINAL AORTA REAL TIME SCREEN STUDY AAA Yael Lake MD [address] [place] [address] [place] [address] Referral ID Status Reason Start Date Expiration Date V isits Requested Visits Authorized [id number] Closed Auto-Generate d Referral 04/06/2023 05/05/2024 1 1 [facility] Summary Purpose Family History No Family History Records FoundNo Family History Records Found No data available for this section No Family History Records Found Advance Directives Documents on File Type Date Recorded Patient Supervisor Yard Expl anation Advance Directive(s) 12/02/2019 6:45 AM Advance Directive(s) 11/28/2019 12:50 PM Documents on File Type Date Recorded Patient Supervisor Yard Expl anation Advance Directive(s) 12/02/2019 6:45 AM Advance Directive(s) 11/28/2019 12:50 PM Additional Source Comments (unrecognized sect ion and content) No Status Records FoundNo Status Records FoundNo Status Records Found INFORMATION SOURCE (unrecogn ized section and content) DATE CREATED AUTHOR AUTHOR'S ORGANIZ ATION 04/07/2023 [facility] DATE CREATED AUTHOR AUTHOR'S ORGANIZ ATION 07/01/2023 [facility] ([place]) Source Comments (unrecognize d section and content) In the event this informatio n is protected by the Federal Confidentiality of Alcohol and Drug Abuse Patient Records regulations: The Federal rules restrict any use of the information to criminally investigate or prosecute any alcohol or drug abuse patient.[facility] the event this information is protected by the Federal Confidentiality of Alcohol and Drug Abuse Patient Records regulations: The Federal rules restrict any use of the information to criminally investigate or prosecute any alcohol or drug abuse patient.[facility] the event this information is protected by the Federal Confidentiality of Alcohol and Drug Abuse Patient Records regulations: The Federal rules restrict any use of the information to criminally investigate or prosecute any alcohol or drug abuse patient.[facility] the event this information is protected by the Federal Confidentiality of Alcohol and Drug Abuse Patient Records regulations: The Federal rules restrict any use of the information to criminally investigate or prosecute any alcohol or drug abuse patient.[facility] Center[facility] the event this information is protected by the Federal Confidentiality of Alcohol and Drug Abuse Patient Records regulations: The Federal rules restrict any use of the information to criminally investigate or prosecute any alcohol or drug abuse patient.[facility] the event this information is protected by the Federal Confidentiality of Alcohol and Drug Abuse Patient Records regulations: The Federal rules restrict any use of the information to criminally investigate or prosecute any alcohol or drug abuse patient.[facility] Center[facility] the event this information is protected by the Federal Confidentiality of Alcohol and Drug Abuse Patient Records regulations: The Federal rules restrict any use of the information to criminally investigate or prosecute any alcohol or drug abuse patient.[facility] Center[facility] the event this information is protected by the Federal Confidentiality of Alcohol and Drug Abuse Patient Records regulations: The Federal rules restrict any use of the information to criminally investigate or prosecute any alcohol or drug abuse patient.[facility] Center[facility] the event this information is protected by the Federal Confidentiality of Alcohol and Drug Abuse Patient Records regulations: The Federal rules restrict any use of the information to criminally investigate or prosecute any alcohol or drug abuse patient.[facility] Center[facility] the event this information is protected by the Federal Confidentiality of Alcohol and Drug Abuse Patient Records regulations: The Federal rules restrict any use of the information to criminally investigate or prosecute any alcohol or drug abuse patient.[facility] Center[facility] the event this information is protected by the Federal Confidentiality of Alcohol and Drug Abuse Patient Records regulations: The Federal rules restrict any use of the information to criminally investigate or prosecute any alcohol or drug abuse patient.[facility] CenterIn the event this information is protected by the Federal Confidentiality of Alcohol and Drug Abuse Patient Records regulations: The Federal rules restrict any use of the information to criminally investigate or prosecute any alcohol or drug abuse patient.[facility] CenterIn the event this information is protected by the Federal Confidentiality of Alcohol and Drug Abuse Patient Records regulations: The Federal rules restrict any use of the information to criminally investigate or prosecute any alcohol or drug abuse patient.[facility] CenterIn the event this information is protected by the Federal Confidentiality of Alcohol and Drug Abuse Patient Records regulations: The Federal rules restrict any use of the information to criminally investigate or prosecute any alcohol or drug abuse patient.[facility] Reason for Visit (unrecogniz ed section and [...] TIME SCREEN STUDY AAA Yael Lake MD [address] [place] [address] [place] [address] Referral ID Status Reason Start Date Expiration Date V isits Requested Visits Authorized [id number] Closed Auto-Generate d Referral 04/06/2023 05/05/2024 1 1 Care Teams (unrecognized sec tion and content) Metal Baler Relationship Specialty Start Date End Date Yael Lake MD [address] [place] [address] PCP - General Family Practice 08/12/17 Metal Baler Relationship Specialty [place] [address] [place] [id number] PCP - General Family Practice 08/12/17 Metal Baler Relationship Specialty Start Date End Date Yael Lake MD [address] [place] [address] PCP - General Family Practice 08/12/17 Metal Baler Relationship Specialty Start Date End Date Yael Lake MD [address] [place] [address] PCP - General Family Practice 08/12/17 Metal Baler Relationship Specialty Start Date End Date Yael Lake MD [address] [place] [address] PCP - General Family Practice 08/12/17 Metal Baler Relationship Specialty Start Date End Date Yael Lake MD [address] [place] [address] PCP - General Family Practice 08/12/17 Metal Baler Relationship Specialty Start Date End Date Yael Lake MD [address] [place] [address] PCP - General Family Practice 08/12/17 Metal Baler Relationship Specialty Start Date End Date Yael Lake MD [address] [place], [place] [address] PCP - General Family Practice 08/12/17 Metal Baler Relationship Specialty Start Date End Date Yael Lake MD [address] [place], [place] [id number] PCP - General Family Medicine 08/12/17 Metal Baler Relationship Specialty Start Date End Date Yael Lake MD [address] [place] [address] PCP - General Family Medicine 08/12/17 Metal Baler Relationship Specialty Start Date End Date Yael Lake MD [address] [facility], [place] [id number] PCP - General Family Medicine 08/12/17 Metal Baler Relationship Specialty Start Date End Date Yael Lake MD [address] [place], [place] [id number] PCP - General Family Medicine 08/12/17 FOR [...] BE BASED ON THE PRIMARY CLINICAL RECORDS. [employer] [facility]. provides no warranty or guarantee of the accuracy or completeness of information in this document.
[2023-12-07 12:41] LABS: Color, Urine Yellow (Yellow); Glucose, Dipstick Normal (Normal); Ketone-Dipstick Negative (Negative); Leukocyte Esterase-Dipstick 25 /ul (Negative); Nitrite-Dipstick Negative (Negative); Occult Blood-Urine Negative /ul (Negative); Protein-Dipstick Negative (Negative); Urine Bilirubin Dipstick Negative (Negative); Urine Clarity Clear (Clear); Urine Urobilinogen Normal (Normal); Urine pH 6.5 (5.0 - 8.0)
[2023-12-07 12:48] LABS: Red Blood Cells-Urine 0-5 SEEN /hpf (0-5)
[2023-12-07 14:17] LABS: T4 Free Direct 1.21 ng/dL (0.76-1.46); Thyroid Stim Hormone (TSH) 1.17 uIU/mL (0.358-3.74)
== END | disposition home or self-care (01) ==
LOC: BIMLAB 09:49
PROVIDERS: Internal Medicine Endocrinology, Diabetes & Metabolism; PCP Internal Medicine; Referring Provider Internal Medicine; Visit Provider Internal Medicine
DX: N40.0 Benign prostatic hyperplasia without lower urinary tract symptoms (principal); F41.9 Anxiety disorder, unspecified
CPT/HCPCS: 36415; 81001; 84439; 84443

== ENCOUNTER → 2024-01-13 | Outpatient (CLI) | payer MEDICARE, SELFPAY | END | disposition home or self-care (01) | LOC: BIMLAB 09:47 | PROVIDERS: PCP Internal Medicine; Referring Provider Physician Assistant; Visit Provider Physician Assistant | DX: R05.9 Cough, unspecified (principal) | CPT/HCPCS: 87635 ==

== ENCOUNTER → 2024-02-15 | Outpatient (CLI) | payer MEDICARE, SELFPAY | END | disposition home or self-care (01) | LOC: LAB 09:55 | PROVIDERS: PCP Internal Medicine; Referring Provider Nurse Practitioner; Visit Provider Nurse Practitioner | DX: Z12.5 Encounter for screening for malignant neoplasm of prostate (principal) | CPT/HCPCS: 36415; 84153; G0103 ==

== ENCOUNTER 2024-03-02 11:23 | Day surgery (SDC) | payer MEDICARE, SELFPAY ==
--- NOTE | 2024-02-22 07:47 | EKG12_ITS ---
Test Reason : PRE-OP Blood Pressure : / mmHG Vent. Rate : 059 BPM Atrial Rate : 059 BPM P-R Int : 132 ms QRS Dur : 082 ms QT Int : 426 ms P-R-T Axes : 025 -08 057 degrees QTc Int : 421 ms Sinus bradycardia Otherwise normal ECG Confirmed by Johnie Moser ([id number]), research editor AMALIA SHIRLEY ([id number]) on 02/22/2024 11:12:50 AM Referred By: Shagufta Matos Confirmed By:Johnie Moser
[2024-03-02] VITALS (14 sets, daily range): BP systolic 101–132; BP diastolic 61–89; PULSE 54–77; RESP 16; TEMP 36.3–36.5; O2SAT 92–100; BMI 26.2
[2024-03-02] MEDS: Lactated Ringers 1,000 ML 15 ML IV ×2 (11:57→15:01)
--- NOTE | 2024-03-02 12:34 | PCM.HP.STD ---
HPI - General General Date of Service: 03/02/24 Chief Complaint: BPH with obstruction HPI Narrative OMKAR SMITH, is a 73 M who presents for a transurethral resection of prostate for large obstructing prostate [facility] Medical History (Updated 02/19/24 @ 13:21 by Jennyfer Pulido) Alcohol use Allergies Anemia Anxiety Arthritis Autoimmune thyroiditis BPH (benign prostatic hyperplasia) Bunion Carpal tunnel syndrome Chronic back pain Gastric reflux Gastrointestinal problem Graves disease Shae's disease Health care maintenance Hearing problem History of back problems History of melanoma History of steroid therapy Hx of gastroesophageal reflux (GERD) Hyperlipidemia Hypertension Impacted cerumen of left ear Neuropathy Non-smoker Prostate atrophy Sciatica, left side Swallowing difficulty Thyroid disease Vitamin deficiency Wears hearing aid Home Medications aspirin 81 mg tablet,delayed release 81 mg PO DAILY BLOOD THINNER 08/18/15 [History Last Taken 02/21/24] pantoprazole 40 mg tablet,delayed release (Protonix) 40 mg PO DAILY reflux 07/19/19 [History Last Taken 03/01/24] finasteride 5 mg tablet 5 mg PO DAILY prostate 01/06/20 [History Last Taken 03/01/24] ferrous sulfate 325 mg (65 mg iron) tablet 325 mg PO DAILY SUPPLEMENT 06/16/23 [History Last Taken 03/01/24] sertraline 100 mg tablet 100 mg PO DAILY MOOD 06/16/23 [History Last Taken 11/18/23] tamsulosin 0.4 mg capsule 0.4 mg PO QHS BPH 06/16/23 [History Last Taken 03/01/24] calcium carbonate 600 mg PO DAILY SUPPLEMENT 10/29/23 [History Last Taken 03/01/24] cholecalciferol (vitamin D3) 10 mcg (400 unit) capsule 400 unit PO DAILY SUPPLEMENT 10/29/23 [History Last Taken 03/01/24] multivitamin 1 tab PO DAILY SUPPLEMENT 10/29/23 [History Last Taken 03/01/24] propranolol 20 mg tablet 20 mg PO DAILY HEART 10/29/23 [History Last Taken 11/18/23] diphenhydramine HCl 25 mg tablet (Benadryl Allergy) 25 mg PO TID PRN allergy symptoms 01/09/24 [History Last Taken 03/01/24] Allergy/AdvReac Type Severity Reaction Status Date / Time meloxicam [From [facility]] Allergy Intermediate Mucosal Verified 03/02/24 11:38 lesions povidone-iodine Allergy Rash Verified 02/19/24 12:48 [From Betadine] soap [From Betadine] Allergy Rash Verified 03/02/24 11:38 Family History Father Emphysema of lung Ruptured (nontraumatic) hernia Abdominal aortic aneurysm Mother Cancer Alcoholism Sister Cancer Colon cancer Surgical History (Updated 02/19/24 @ 13:09 by Jennyfer Pulido) cspine H/O elbow surgery H/O hand surgery History of cervical spinal surgery History of colonoscopy History of esophagogastroduodenoscopy (EGD) History of knee surgery History of melanoma excision History of tonsillectomy Previous back surgery S/P foot surgery Social History Smoking Status: Never smoker alcohol intake: current alcohol intake frequency: a few times a week substance use type: does not use what type of physical activity do you participate in: walking, weight training and other details: CARDIOVASCULAR TRAINING frequency: daily seatbelt use: always do you feel safe at home: Yes Vital Signs Vital Signs Vital Signs: 03/02/24 11:54 03/02/24 11:54 Temperature 97.6 F L Temperature Source Temporal Pulse Rate 56 L Respiratory Rate 16 Respiratory Pattern Normal Blood Pressure 132/79 H Blood Pressure Mean 96 Blood Pressure Source Monitor Blood Pressure Position Semi-Fowlers Blood Pressure Location Left Arm Pulse Ox 100 Oxygen Delivery Method Room Air Weight Weight: 83 kg Body Mass Index (BMI) 26.2
[2024-03-02] MEDS: Cefazolin 2 GM in 0.9% Normal Saline (100mL Bag) 100 ML IV (12:57)
--- NOTE | 2024-03-02 13:30 | PROS_PTH ---
PATIENT: OMKAR SMITH LOC: [facility] [place] U#:[id number] AGE/SX: 73/M ROOM: RE03/02/[address]: Dr. Lester Frank MD : 1950 BED: DIS: 03/03/2024 SPEC #: [id number] RECD: 03/02/24 15:32 STATUS: KELLY REBOLLAR #: [id number] [place]: 03/02/24 13:[address]: Lester Frank DEPT: SURGICAL PATHOLOGY RECD BY: Ayah Polo ENTERED: 03/03/24 12:04 SP TYPE: TURP OTHR DR: Dr. Vy Casas MD Tissues: Prostate, NOS Procedures: Surgery Specimen Level IV HEADER OPERATION: Transurethral resection of prostate with Olympus PRE-OP DIAGNOSIS: BPH with obstruction TISSUE SUBMITTED: Prostate tissue MICROSCOPIC DIAGNOSIS Prostate tissue, transurethral resection: Benign prostatic hyperplasia, glandular and stromal type. Chronic inflammation and basal cell hyperplasia. CHRISTOPH: 03/04/24 MICROSCOPIC DESCRIPTION Slides are reviewed. GROSS DESCRIPTION Received is one container labeled with the patient's name and designated prostate tissue. The specimen consists of multiple irregular fragments of pink-sweeney, rubbery, soft tissue that in aggregate weigh 6.0 gm and measure in aggregate 3.0 x 3.0 x 1.0 cm. The entire specimen is submitted in six cassettes. CHRISTOPH/ 03/03/24 TC:5 CPT: 98007
--- NOTE | 2024-03-02 13:33 | DCINST_ITS ---
Discharge Instructions Diet Discharge Diet: No restrictions Activity Discharge Activity: Return to Normal Activity and May Not Drive (while taking narcotic pain medications.) Dressing / Incision Call your doctor if you observe: Fever of 101 or Higher Follow Up Care Please Follow Up With: Lester Frank MD When: Call [phone] for an appointment Test Results: Test results from this visit will be discussed in further detail at your follow- up appointment, if applicable. Discharge Plan Admission Attending Provider: Lester Frank Primary Care Provider: Vy Casas Discharge Orders/Prescriptions Prescriptions: No Action pantoprazole [Protonix] 40 mg tablet,delayed release (DR/EC) 40 mg PO DAILY sertraline 100 mg tablet 100 mg PO DAILY Patient Comments: pt states he takes this as needed, can't remember when he last took it tamsulosin 0.4 mg capsule 0.4 mg PO QHS ferrous sulfate 325 mg (65 mg iron) tablet 325 mg PO DAILY propranolol 20 mg tablet 20 mg PO DAILY Patient Comments: pt states he takes this as needed, can't remember when he last took it multivitamin Tablet 1 tab PO DAILY calcium carbonate 600 mg calcium (1,500 mg) tablet 600 mg PO DAILY cholecalciferol (vitamin D3) 10 mcg (400 unit) capsule 400 unit PO DAILY diphenhydramine HCl [Benadryl Allergy] 25 mg tablet 25 mg PO TID PRN (Reason: allergy symptoms) aspirin 81 MG tablet,delayed release (DR/EC) 81 mg PO DAILY Patient Comments: stop as instructed finasteride 5 MG tablet 5 mg PO DAILY Other Ambulatory Orders: 12 Lead EKG (Routine) Timeframe: 20240222 Location: None Selected Ordered By: Dr. Ramírez Partida Referrals / Follow Up: Vy Casas MD [Primary Care Provider] - Disposition Disposition (needs filled in before D/C Order can be placed): Home, Self Care
--- NOTE | 2024-03-02 13:33 | PCM.OPRPT ---
Report of Operation Date of Procedure: 03/02/24 Pre-Operative Diagnosis: BPH with obstruction Post-Operative Diagnosis: The same Surgery/Procedure Performed:: Transurethral section of prostate Description of Surgical Findings:: In the preoperative setting I discussed with the patient how the surgery would be done with expect afterwards. We discussed how a prostate resection is done and we discussed the risk of the surgery including, bleeding, infection, retrograde ejaculation, changes with ejaculation or intercourse,. We discussed the possibility that the resection of the prostate may not alleviate his urinary symptoms. We discussed the small risk of developing scar tissue along the urethral channel and strictures. We also discussed the chance of the prostate could grow back and he may need further surgery or treatment in the future for prostate problems. Patient was taken back to the operating room, timeout procedure was performed, he was identified and marked and placed on the operating room table. He underwent general anesthesia. He was placed in dorsolithotomy position. Penis and testicles were prepped and draped in usual sterile fashion. Went into the bladder using the visual obturator with a resectoscope. Once inside the bladder identified the right and left ureteral orifice. I then identified the prostate and the anatomy of the prostate. I marked out the area of the sphincter and the verumontanum was identified. I then proceeded with the prostate resection first resected the median lobe. And then resected the right lobe of the prostate. Then to resect the left lobe of the prostate. I then resected the apical tissue of the prostate. This was a complete resection of all obstructive tissue to improve voiding and relieve obstruction. I then made sure that there was no injury to the sphincter or the verumontanum was still intact. At the end of the resection all the chips were Ellik out of the bladder. I then identified the left and right ureteral orifice and these were confirmed to be in good position and effluxing and not injured. The resectoscope was removed, a 22 Macanese catheter was placed into the bladder on continuous irrigation. And the urine was fairly light pink color and draining normally. He was taken back to the PACU in good condition. Surgeon: Lester Frank Type of Anesthesia: General Drains: 22 Macanese three-way Xiao
[2024-03-02] MEDS: 0.9% Normal Saline (1000mL) 1,000 ML 125 ML IV ×2 (18:36→22:44)
[2024-03-02] MEDS: CLARIFY ORDER NOTE (18:57)
[2024-03-02] MEDS: Docusate Sodium 100 MG Capsule 200 MG PO (22:44)
[2024-03-02] MEDS: Ketorolac 15 MG/ML Vial IV (22:44)
[2024-03-02] MEDS: Ciprofloxacin 400 MG/200 ML BAG 200 MG IV (22:45)
[2024-03-02] MEDS: DiphenhydrAMINE 25 MG Capsule PO (22:45)
[2024-03-03 04:24] VITALS: BP 134/77; PULSE 66; RESP 16; TEMP 36.5; O2SAT 97
[2024-03-03] MEDS: 0.9% Normal Saline (1000mL) 1,000 ML 125 ML IV (04:40)
--- NOTE | 2024-03-03 07:41 | PCM.PN.GU ---
Subjective Subjective Status post TURP urine is clear we can DC Xiao and he can go home today Objective Data Objective Data Vital Signs: Vital Signs Temp Pulse Resp BP Pulse Ox O2 Del Method 97.7 F L 66 16 134/77 H 97 Room Air 03/03/24 04:24 03/03/24 04:24 03/03/24 04:24 03/03/24 04:24 03/03/24 04:24 03/03/24 04:24 Oxygen Delivery Method Room Air Weight: 83 kg Body Mass Index (BMI) 26.2 Intake & Output: Intake and Output for Last 24 Hours 03/01/24 03/02/24 03/03/24 23:59 23:59 23:59 Intake Total 2025.67 / 2025. 1841.67 / 1840. Output Total 3500 / 3500 Balance -1473.33 / -1473.33 1841.67 / 184.67
--- NOTE | 2024-03-03 09:26 | CASEMGMT ---
MORA CM into pt room, pt sitting up in chair eating breakfast. Pt denies any homegoing needs. Pt reports he works out 3x/wk at the [employer] and feels safe to go home.
--- NOTE | 2024-03-03 09:50 | PHA.DC.MC.R ---
Pharmacy [facility] has performed discharge medication reconciliation and counseling for this patient. 1. CIPROFLOXACIN 500MG PO BID X 5 DAYS The patient's discharge medication list was reviewed for discrepancies and discrepancies were resolved. The patient was counseled on the following discharge medications and changes in medications for homegoing were reviewed. The Reason for Use, instructions for use, and potential side effects were reviewed for all new medications. The patient's questions regarding all of their medications were answered. The patient was able to verbally demonstrate an understanding of their discharge medications. Medications at Discharge Home Medications aspirin 81 mg tablet,delayed release 81 mg PO DAILY BLOOD THINNER 08/18/15 pantoprazole 40 mg tablet,delayed release (Protonix) 40 mg PO DAILY reflux 07/19/19 ferrous sulfate 325 mg (65 mg iron) tablet 325 mg PO DAILY SUPPLEMENT 06/16/23 sertraline 100 mg tablet 100 mg PO DAILY MOOD 06/16/23 calcium carbonate 600 mg PO DAILY SUPPLEMENT 10/29/23 cholecalciferol (vitamin D3) 10 mcg (400 unit) capsule 400 unit PO DAILY SUPPLEMENT 10/29/23 multivitamin 1 tab PO DAILY SUPPLEMENT 10/29/23 propranolol 20 mg tablet 20 mg PO DAILY HEART 10/29/23 diphenhydramine HCl 25 mg tablet (Benadryl Allergy) 25 mg PO TID PRN allergy symptoms 01/09/24 ciprofloxacin HCl 500 mg tablet (Cipro) 500 mg PO BID #10 tabs 03/02/24
[2024-03-03] MEDS: Docusate Sodium 100 MG Capsule 200 MG PO (09:55)
[2024-03-03] MEDS: Pantoprazole Sodium 40 MG Tablet PO (09:55)
[2024-03-03] MEDS: Ciprofloxacin 400 MG/200 ML BAG 200 MG IV (09:55)
[2024-03-03] MEDS: Sertraline 100 MG Tablet PO (09:55)
[2024-03-03] MEDS: Ferrous Sulfate 325 MG Tablet PO (09:55)
[2024-03-03 10:00] VITALS: BP 135/76; PULSE 60; RESP 16; TEMP 36.7; O2SAT 100
[2024-03-03 11:00] VITALS: BP 135/76; PULSE 60; RESP 16; TEMP 36.7; O2SAT 100
== END 2024-03-03 11:08 | disposition home or self-care (01) ==
LOC: SDC 11:25 → AC 11:25 → MS3 15:09
PROVIDERS: PCP Internal Medicine; Referring Provider Urology; Visit Provider Urology
PROC: (CPT 52601; principal; 2024-03-02 13:20)
DX: N40.1 Benign prostatic hyperplasia with lower urinary tract symptoms (principal); N13.8 Other obstructive and reflux uropathy; K21.9 Gastro-esophageal reflux disease without esophagitis; I10 Essential (primary) hypertension; E78.00 Pure hypercholesterolemia, unspecified; Z79.899 Other long term (current) drug therapy; Z79.82 Long term (current) use of aspirin
CPT/HCPCS: 52601; 00914; 88305; 93005; J7030; J7120; J0744; J2405

== ENCOUNTER 2024-04-28 08:30 | Outpatient (RCR) | payer MEDICARE, SELFPAY ==
--- NOTE | 2024-03-29 15:40 | HP.PTEVAL ---
Patient's Visit Information Visit Information Visit Information: OMKAR SMITH is a 73 year old M referred to Physical Therapy by Dr. Casa Sanford DO with a diagnosis of L rotator cuff tendonitis. Date of Evaluation: 03/29/24 Physical Therapist: Niko Ty, PT, ATC Visit Plan Frequency: 2-3x /Week Duration: 4 Weeks Plan: L shoulder rot cuff strengthening, scap stab ex's, mobs, UBE, and HEP Subjective Subjective: Pt reports he has had L shoulder pain for approximately one year. Pt notes he was on a [place] trip at the time when he experienced L shoulder pain while carrying 5 # buckets of mud. Pt notes he is R hand dominant. Pt denies any tingling or numbness in L UE at this time. Pt reports occasional sleep difficulty at this time secondary to pain. Pt reports he is pretty limited at this time with overhead lifting, and trying to drive with his L UE secondary to pain. Pt denies any prior Hx of L shoulder complications. Pt reports he has had x-rays recently which revealed no significant findings. Pt reports he was told to try PT and to follow up in 2-3 months if pain persists. 3/10 pain in the L shoulder while sitting here at rest, 9/10 pain at worst (when he is stretching or lifting some heavy weight) Pain L shoulder pain: Pain Intensity (Out of 10): 3 Pain Intensity Range: 9 Objective Objective: Neuro: B UE sensation is WNL to light touch. B bicipital reflex= 2/3 Palpation: Pt is sore throughout the distribution of the infra spinatus and teres minor muscle groups. No obvious deformity noted at this time ROM: R shoulder flex= 160, abd= 150, ER= 50, IR= WNL compared bilaterally; L shoulder flex= 140, abd= 135, ER= ,40 IR= WNL compared bilaterally MMT: R shoulder flex= 13, abd= 17, ER= 13, IR= 16 #F; L shoulder flex= 4, abd= 16, ER= 2, IR= 14 Special tests: Pos open can and empty can test. Balance/Special Test Scores Quick DASH Score: 31.8175 Goals Goal 1:: Decrease L shoulder pain x 50% to aid with sleep Goal Time Frame: 4-6 Weeks Goal 2:: Increase L shoulder strength flex and ER x 5-10 #F to aid with IADL's Goal Time Frame: 4-6 Weeks Goal 3:: Increase L shoulder ROM flex and abd x 10 degrees to aid with overhead lifting Goal Time Frame: 4-6 Weeks Goal 4:: I with HEP Goal Time Frame: 4-6 Weeks Rehabilitation Potential Physical Therapy Diagnosis: Pt has L shoulder pain, weakness, and limited ROM secondary to L rot cuff tendonitis Rehabilitation Potential: Good Anticipated Interventions Patient/Client Instruction: Educate patient on: Condition and Plan of Care For the Purpose of:: To improve self management Therapeutic Exercise to Include: Strength training, Endurance training, Body mechanics, Postural training, Flexibilty training, Active ROM and Scapular Strength/Stabilization For the Purpose of:: To decrease pain, To increase ROM and To improve muscle performance and motor function Cryotherapy (ice pack, ice massage): Yes For the Purpose of:: To decrease pain Text: Thank you for the opportunity to evaluate your patient. For Medicare and Medicare HMO plans, please review the plan of care and approve it. It will need to be FAXED BACK to us at [phone] for Medicare purposes. For Medicare only, by signing this I certify the plan of care. Please let me know if there are questions or concerns regarding this plan of care. Physician Signature: Date:
--- NOTE | 2024-04-28 09:09 | HP.PTREVAL ---
Re-Evaluation Intro: Dr. Casa Sanford, DO, It has been my pleasure to treat OMKAR SMITH over the last 8 visits for L rotator cuff tendonitis. Please see the progress note below for an update on the physical therapy plan of care! Subjective Subjective: pt. reports overall doing slightly better, but not much. He still has a lot of issues with OH movements and with any lifting. 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 Pt. repots being 25% better overall. Objective Objective/Function: ROM: PROM: flexion 165deg, abd 165deg, ER at 90deg of abd 95deg mild increase nW at end range, IR at 90deg of abd 50deg mild increase nW, Pt. does have increased pain with H shoulder adduction as well. AROM: L shoulder: flexion 160deg increase NW, abd 125deg increase NW, functional IR L4 increase NW, functional ER C4 increase NW. Pt. reports pain at posterior subacromial space. MMT: L shoulder: [id number]# increase NW, abd 19.5# increase NW, ER 6.3# marked pain, IR 15.8# NE., ext 27.9# R shoulder: flexion 25.9#, abd, 27.2#, ER 17.9#, IR 19.9# no effect, 27.7# NE Pt. reports he does well with lower ranges of shoulder motions, but still has a lot of pain with over head movements and with lifting. He has marked weakness with ER compared to other side, and marked pain with this movement. He reports not too much change with PT at this point in time. After talking with him, he would like to follow up with physician to determine best course of action. Plan Plan Plan: pt. to follow up with physician to determine best course of action. Balance/Gait/Functional tests Balance/Special Test Scores Quick DASH Score: 20.4525 Goals Goals Goal 1:: Decrease L shoulder pain x 50% to aid with sleep Goal Time Frame: 4-6 Weeks Goal Progress: Not Progressing Goal 2:: Increase L shoulder strength flex and ER x 5-10 #F to aid with IADL's Goal Time Frame: 4-6 Weeks Goal Progress: Progressing Goal 3:: Increase L shoulder ROM flex and abd x 10 degrees to aid with overhead lifting Goal Time Frame: 4-6 Weeks Goal Progress: Progressing Goal 4:: I with HEP Goal Time Frame: 4-6 Weeks Goal Progress: Goal Met Anticipated Interventions Anticipated Interventions Patient/Client Instruction: Educate patient on: Condition and Plan of Care For the Purpose of:: To improve self management Therapeutic Exercise to Include: Strength training, Endurance training, Body mechanics, Postural training, Flexibilty training, Active ROM and Scapular Strength/Stabilization For the Purpose of:: To decrease pain, To increase ROM and To improve muscle performance and motor function Cryotherapy (ice pack, ice massage): Yes For the Purpose of:: To decrease pain Re-Evaluation Ending Re-evaluation ending: Please do not hesitate to contact me at [phone] by phone or if you have questions or concerns regarding this new plan of care! Sincerely, EROS SlaughterT
--- NOTE | 2024-06-29 07:53 | HP.PTDCNRP_ITS ---
Patient Information Patient Information: OMKAR SMITH was seen in my office for initial evaluation on 03/29/24. The following Plan of Care was established for this patient: POC Established Initial Frequency: 2-3x /Week Initial Duration: 4 Weeks Anticipated Interventions Patient/Client Instruction: Educate patient on: Condition and Plan of Care For the Purpose of:: To improve self management Therapeutic Exercise to Include: Strength training, Endurance training, Body mechanics, Postural training, Flexibilty training, Active ROM and Scapular S trength/Stabilization For the Purpose of:: To decrease pain, To increase ROM and To improve muscle performance and motor function Cryotherapy (ice pack, ice massage): Yes For the Purpose of:: To decrease pain Last Seen Last Seen: This patient was last seen in our office . Pertinent comments regarding their Physical therapy will appear below: Pt was treated for 8 PT visits for R shoulder pain through the date of 04/30/24. Pt has not returned through todays date and is discontinued at this time. At this point I will be discontinuing this patient from physical therapy. I would be happy to see this patient again in the future if found appropriate by the physician. Thank you! Niko Ty, PT, ATC Balance/Gait/Functional tests Balance/Special Test Scores Quick DASH Score: 20.4540
== END 2024-04-28 19:00 | disposition home or self-care (01) ==
LOC: PT 08:30
PROVIDERS: PCP Internal Medicine; Visit Provider Orthopaedic Surgery
DX: M75.80 Other shoulder lesions, unspecified shoulder (principal)
CPT/HCPCS: 97110; 97161; 97530

== ENCOUNTER → 2024-06-07 | Outpatient (CLI) | payer MEDICARE, SELFPAY ==
--- NOTE | 2024-06-07 12:36 | MRI_ITS ---
STUDY: MRI LEFT SHOULDER REASON FOR EXAM: Male, 74 years old. Pain. TECHNIQUE: Standardized fat and water weighted pulse sequences were obtained in all 3 orthogonal planes. COMPARISON: Left shoulder radiographs dated 03/16/2024. FINDINGS: There is mild supraspinatus and infraspinatus tendinosis without a full-thickness tear. Normal subscapularis tendon. Normal teres minor tendon. Normal supraspinatus muscle. Normal infraspinatus muscle. Normal subscapularis muscle. Normal teres minor muscle. Normal glenohumeral articulation. Normal humeral head and visualized proximal humerus. Normal biceps labral complex. Normal intracapsular long biceps tendon. Normal labrum. Normal capsulo-ligamentous complex. Normal rotator interval. There is mild hypertrophic acromioclavicular arthrosis, with inferior osteophyte formation, with minimal effacement of the supraspinatus myotendinous junction (coronal PD series 8 image 10). There is a Type II morphology (curved), with a neutral orientation. There is no subacromial-subdeltoid bursal fluid. Normal visualized coracohumeral and coracoacromial ligaments. Normal quadrilateral space. Normal axillary space. Normal deltoid muscle. Normal trapezius muscle. MRI/Upper Ext Joint Only(Routine) IMPRESSION: Mild supraspinatus and infraspinatus tendinosis without a full-thickness rotator cuff tear. Mild hypertrophic acromioclavicular arthrosis, with inferior osteophyte formation, with minimal effacement of the supraspinatus myotendinous junction. Electronically Signed: Kingston Knowles MD at 14:02 EDT ,
== END | disposition home or self-care (01) ==
LOC: MRI 12:29
PROVIDERS: PCP Internal Medicine; Referring Provider Orthopaedic Surgery; Visit Provider Orthopaedic Surgery
DX: M75.82 Other shoulder lesions, left shoulder (principal)
CPT/HCPCS: 73221

== ENCOUNTER → 2024-09-01 | Outpatient (CLI) | payer MEDICARE, SELFPAY ==
[2024-09-01 16:39] LABS: Absolute Lymphocyte Count 1.62 X10^3/uL (0.83-4.51); Absolute Neutrophil Count 5.4 X10^3/uL (2.0-7.7); Basophil# 0.05 X10^3/uL; Basophil% 0.6 % (0-1); Eosinophil# 0.48 X10^3/uL; Eosinophils% 5.9 % (0-5); Hemoglobin 12.7 g/dL (13.0-16.5); Lymphocyte # 1.62 X10^3/ul (0.83-4.51); Lymphocyte % 19.9 % (19-41); Mean Corp Hgb Conc 31.8 g/dL (32-36); Mean Corpuscular Hgb 30.2 pg (27.0-32.0); Mean Corpuscular Volume 95.2 fL (80-94); Mean Platelet Vol. 10.6 fl (6.2-12.0); Monocyte# 0.56 X10^3/uL; Monocyte% 6.9 % (0-10); NRBC Flagged by Analyzer 0 % (0-5); Neutrophil # 5.42 X10^3/uL (2.7-7.7); Neutrophil % 66.5 % (47-70); Platelet Count 244 K/mm3 (150-450); RBC Distribution Width CV 13.3 % (11.6-14.6); RBC Distribution Width SD 46.9 fl (35.1-43.9); White Blood Count 8.2 K/mm3 (4.4-11.0)
[2024-09-01 16:53] LABS: BNP,B-Type NATRIURETIC PEPTIDE 56.9 pg/mL (0-100)
[2024-09-01 17:02] LABS: AST(SGOT) 30 U/L (15-37); Alanine Aminotransfer ALT/SGPT 37 U/L (16-61); Albumin, Serum 3.5 g/dL (3.2-5.0); Alkaline Phosphatase 63 U/L (45-117); Anion Gap 3 (5-15); BUN 16 mg/dL (7-18); BUN/Creat Ratio 18.3 RATIO (10-20); Calcium,Total 9.2 mg/dL (8.5-10.1); Chloride 109 mmol/L (98-107); Cholesterol 160 mg/dL (200); Creatinine, Serum 0.88 mg/dL (0.70-1.30); EST Glomerular Filtration Rate 91 mL/min (>60); Est Glom Filt Rate - Afr Amer 110 mL/min (>60); Globulin 3.6 g/dL (2.2-4.2); Glucose 109 mg/dL (74-106); High Density Lipoprotein 59 mg/dL; Potassium 4.1 mmol/L (3.5-5.1); Protein, Total 7.1 g/dL (6.4-8.2); Sodium Level 140 mmol/L (136-145); T4 Free Direct 1.04 ng/dL (0.76-1.46); Triglycerides 185 mg/dL; Very Low Density Lipoprotein 37 mg/dL (5-40)
[2024-09-02 08:40] LABS: Ferritin 136 ng/mL (26-388); Iron 32 ug/dL (65-175); Iron Binding Capacity,Total 271 ug/dL (250-450)
== END | disposition home or self-care (01) ==
LOC: BIMLAB 14:37
PROVIDERS: PCP Internal Medicine; Referring Provider Internal Medicine; Visit Provider Internal Medicine
DX: E78.00 Pure hypercholesterolemia, unspecified (principal); R06.00 Dyspnea, unspecified; D64.9 Anemia, unspecified
CPT/HCPCS: 36415; 80053; 80061; 82728; 83540; 83550; 83880; 84439; 84443; 85025

== ENCOUNTER → 2024-09-08 | Outpatient (CLI) | payer MEDICARE, SELFPAY | END | disposition home or self-care (01) | LOC: LABSPEC 08:58 | PROVIDERS: PCP Internal Medicine; Referring Provider Internal Medicine; Visit Provider Internal Medicine | DX: D64.9 Anemia, unspecified (principal) | CPT/HCPCS: 82274 ==

== ENCOUNTER → 2024-12-08 | Outpatient (CLI) | payer MEDICARE, SELFPAY ==
[2024-12-08 16:49] LABS: Absolute Lymphocyte Count 1.85 X10^3/uL (0.83-4.51); Absolute Neutrophil Count 3.5 X10^3/uL (2.0-7.7); Basophil# 0.06 X10^3/uL; Eosinophil# 0.18 X10^3/uL; Eosinophils% 2.9 % (0-5); Hematocrit 38.4 % (40-54); Lymphocyte # 1.85 X10^3/ul (0.83-4.51); Lymphocyte % 30.2 % (19-41); Mean Corp Hgb Conc 33.9 g/dL (32-36); Mean Corpuscular Hgb 31.3 pg (27.0-32.0); Mean Corpuscular Volume 92.5 fL (80-94); Mean Platelet Vol. 10.8 fl (6.2-12.0); Monocyte% 8.2 % (0-10); NRBC Flagged by Analyzer 0 % (0-5); Neutrophil # 3.52 X10^3/uL (2.7-7.7); Neutrophil % 57.4 % (47-70); Platelet Count 221 K/mm3 (150-450); RBC Distribution Width CV 12.9 % (11.6-14.6); RBC Distribution Width SD 44.2 fl (35.1-43.9); Red Blood Count 4.15 M/mm3 (4.6-6.2); White Blood Count 6.1 K/mm3 (4.4-11.0)
[2024-12-08 17:14] LABS: Anion Gap 4 (5-15); BUN 19 mg/dL (7-18); BUN/Creat Ratio 23.5 RATIO (10-20); Calcium,Total 9.1 mg/dL (8.5-10.1); Chloride 108 mmol/L (98-107); Creatinine, Serum 0.81 mg/dL (0.70-1.30); EST Glomerular Filtration Rate 99 mL/min (>60); Est Glom Filt Rate - Afr Amer 120 mL/min (>60); Glucose 100 mg/dL (74-106); Potassium 4.3 mmol/L (3.5-5.1); Sodium Level 140 mmol/L (136-145)
== END | disposition home or self-care (01) ==
LOC: BIMLAB 15:57
PROVIDERS: PCP Internal Medicine; Referring Provider Internal Medicine; Visit Provider Internal Medicine
DX: G62.9 Polyneuropathy, unspecified (principal)

== ENCOUNTER 2025-03-06 08:25 | Day surgery (SDC) | payer MEDICARE, SELFPAY ==
[2025-03-06] VITALS (8 sets, daily range): BP systolic 90–119; BP diastolic 64–79; PULSE 56–59; RESP 16–18; TEMP 36–36.8; O2SAT 94–99; BMI 25.4
--- NOTE | 2025-03-06 09:04 | PRE.ANES_ITS ---
ASA Classification* ASA Classification ASA Classification: 2 Assessment & Plan Anesthesia* Anesthesia Assessment Anesthesia Assessment: Discussed sedation and/or anesthesia options, risks, benefits, and alternatives with patient/parents/legal guardian/POA. Questions invited. The patient/parents/legal guardian/POA seems to understand and agrees to proceed with anesthesia plan. Reviewed the physical assessment, medical history, allergy history and patient home medications list prior to surgery/procedure/anesthetic and documented any changes. Performed airway and anesthesia risk assessments. Anesthesia Type Anesthesia Type: MAC Anesthesia Focused Assessment* Temperature: 96.8 F Pulse Rate: 56 Blood Pressure: 119/79 Respiratory Rate: 18 Pulse Ox: 99 Airway Assessment Mouth opens: >3 cm Mallampati Score: II Focused Labs Anesthesia Preop lab: CBC WBC 6.1 K/mm3 (4.4-11.0) 12/08/24 15:57 12/08/24 RBC 4.15 M/mm3 (4.6-6.2) L 12/08/24 15:57 12/08/24 Hgb 13.0 g/dL (13.0-16.5) 12/08/24 15:57 12/08/24 Hct 38.4 % (40-54) L 12/08/24 15:57 12/08/24 Plt Count 221 K/mm3 (150-450) 12/08/24 15:57 12/08/24 CHEMISTRY Potassium 4.3 mmol/L (3.5-5.1) 12/08/24 15:57 12/08/24 Sodium 140 mmol/L (136-145) 12/08/24 15:57 12/08/24 BUN 19 mg/dL (7-18) H 12/08/24 15:57 12/08/24 Creatinine 0.81 mg/dL (0.70-1.30) 12/08/24 15:57 12/08/24 Glucose 100 mg/dL (74-106) 12/08/24 15:57 12/08/24 TSH 1.670 uIU/mL (0.358-3.740) 09/01/24 14:38 08/23 COAG Pre-Assessment Diagnosis/Proposed Procedure Planned Operative Procedure(s): Colonoscopy,EGD - Open Access Anesthesia History Anesthesia History - bilingual account manager: Anesthesia History - bilingual account manager Hx Hospitalization No 03/01/25 13:40 Any Problems With Anesthesia No 03/01/25 13:40 Cholinesterase deficiency No 03/01/25 13:40 You/Your Family Experience No 03/01/25 13:40 fever (hyperthermia) with Relationship Recent Exposure to Contagious No 03/06/25 08:42 Disease Does patient have nerve No 03/01/25 13:40 stimulator Patient instructed to have device shut off --Does patient have Pacemaker or ICD? When Was Last Pacemaker Check QUESTION #4 FULL TEXT: You/Your Family Experience fever (hyperthermia) with Anesthesia Last Oral Intake Last Oral intake: Last Oral Intake NPO since 05:30 03/06/25 08:42 Meds taken in AM with sips of water? Meds patient instructed to take am of surgery PONV PONV - bilingual account manager: PONV - bilingual account manager Female No 03/01/25 13:40 HX of Motion Sickness No 03/01/25 13:40 HX of N/V After Surgery No 03/01/25 13:40 Non-Smoker Yes 03/01/25 13:40 Duration of Surgery greater No 03/01/25 13:40 than 60 minutes Number of Risk Factors 1 03/01/25 13:40 PONV Score Low Risk 03/01/25 13:40 Height & Weight Height & Weight: Anesthesia: Height & Weight Height 5 ft 10 in 03/06/25 08:42 Weight: 80.3 kg 03/06/25 08:42 Body Mass Index (BMI) 25.4 03/06/25 08:42 Respiratory Assessment Respiratory Assessment - bilingual account manager: Respiratory Tract Infection Hx - bilingual account manager Hx Respiratory Tract Infection No 03/01/25 13:40 STOP Sleep Apnea STOP Sleep Apnea - bilingual account manager: STOP Sleep Apnea - bilingual account manager Hx Hypertension Yes: PRN MED, OTHERWISE 03/01/25 13:40 CONTROLLED Hx Sleep Apnea No 03/01/25 13:40 CPAP BIPAP Do you snore loudly (louder No 03/01/25 13:40 than talking or can be heard Do you often feel tired/ No 03/01/25 13:40 fatigued/ sleepy during daytime? Has anyone observed you stop No 03/01/25 13:40 breathing during sleep? STOP Results Negative 03/01/25 13:40 QUESTION #5 FULL TEXT : Do you snore loudly (louder than talking or can be heard through closed doors)? 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 Specify any problems Hx of Preganancy in last 3 N/A 03/01/25 13:40 Months Nurse Filling Out Transfusion VCHRISTIN 03/01/25 13:40 & Questions: Date: 03/01/25 03/01/25 13:40 Time: 13:41 03/01/25 13:40 Patient unable to answer at this time (ie. confused, unrespo /Reproduction History /Reproductive History - bilingual account manager: /Reproductive Hx- bilingual account manager Hx Now No 03/01/25 13:40 Gestational Age (in weeks): EDC: Hx Hx Para Hx Section SAB No 03/01/25 13:40 PFSH Medical History Family history of malignant neoplasm of colon in relative diagnosed when younger than 50 years of age GERD (gastroesophageal reflux disease) Skin lesion of scalp Colon cancer screening Surgical wound breakdown Fatigue Dyspnea Left shoulder pain History of steroid therapy Alcohol use Gastric reflux Hypertension Neuropathy BPH (benign prostatic hyperplasia) Autoimmune thyroiditis Wears hearing aid Non-smoker Health care maintenance Impacted cerumen of left ear Swallowing difficulty Chronic back pain Sciatica, left side Hyperlipidemia Anemia Shae's disease Graves disease Bunion Vitamin deficiency Thyroid disease Hx of gastroesophageal reflux (GERD) Prostate atrophy Hearing problem Gastrointestinal problem Anxiety Carpal tunnel syndrome History of melanoma History of back problems Arthritis Allergies Home Medications ?Medication ?Instructions ?Recorded ?Last Taken ?Type calcium carbonate 600 mg PO DAILY SUPPLEMENT 1 12/30/22 03/04/25 History cholecalciferol (vitamin D3) 10 400 unit PO DAILY SUPP LEMENT 10/29/23 03/04/25 History mcg (400 unit) capsule multivitamin 1 tab PO DAILY SUPPLEMENT 03/04/25 History propranolol 20 mg tablet 20 mg PO DAILY PRN HEART 06/1411/18/23 History diphenhydramine HCl 25 mg tablet 25 mg PO TID PRN kevin rgy symptoms 01/09/24 03/04/25 History (Benadryl Allergy) ferrous sulfate 325 mg (65 mg 325 mg PO Q OTHER DAY YOU PPLEMENT 09/02/24 03/03/25 Rx iron) tablet #90 tabs sertraline 100 mg tablet 100 mg PO DAILY #90 tabs 03/04/25 Rx celecoxib 200 mg capsule (Celebrex) 200 mg PO QDAY PRN pain #90 caps 12/08/24 03/04/25 Rx pantoprazole 40 mg tablet,delayed 40 mg PO DAILY reflu x #90 tabs 02/06/25 03/04/25 Rx release (Protonix) Allergy/AdvReac Type Severity Reaction Status Date / Time meloxicam (From Mobic) Allergy Intermediate Mucosal Verified 03/06/25 08:40 lesions povidone-iodine (From Allergy Rash Verified 03/06/25 08:40 Betadine) soap (From Betadine) Allergy Rash Verified 03/06/25 08:40 Family History Father Emphysema of lung Ruptured (nontraumatic) hernia Abdominal aortic aneurysm Mother Cancer Alcoholism Sister Cancer Colon cancer, Onset Age: 41 At 41yrs Surgical History Hx of local excision of skin lesion History of carpal tunnel surgery of left wrist S/P TURP History of melanoma excision History of tonsillectomy History of esophagogastroduodenoscopy (EGD) History of colonoscopy History of cervical spinal surgery History of knee surgery H/O elbow surgery cspine H/O hand surgery Previous back surgery S/P foot surgery Social History household members: spouse current occupational status: retired Smoking Status: Never smoker alcohol intake: current alcohol intake frequency: a few times a week substance use type: does not use what type of physical activity do you participate in: walking, weight training and other details: CARDIOVASCULAR TRAINING frequency: daily seatbelt use: always do you feel safe at home: Yes Review of Systems (Anesthesia) ROS Narrative System reviewed and no additional complaints, except as documented.
--- NOTE | 2025-03-06 09:30 | COLBX_PTH ---
PATIENT: OMKAR SMITH LOC: EN U#:[id number] AGE/SX: 74/M ROOM: RE03/06/[address]: Dr. William Perez DO : 1950 BED: DIS: 03/06/2025 SPEC #: [id number] RECD: 03/06/25 10:59 STATUS: KELLY REBOLLAR #: [id number] [place]: 03/06/25 09:[address]: William Perez DEPT: SURGICAL PATHOLOGY RECD BY: Cinthia Garcia ENTERED: 03/06/25 11:28 SP TYPE: COLON BX OTHR DR: Dr. Vy Casas MD Tissues: A - Esophagus, NOS B - Cecum, NOS Procedures: Surgery Specimen Level IV HEADER OPERATION: Colonoscopy with biopsies, EGD with biopsy and dilation PRE-OP DIAGNOSIS: GERD, colon cancer screening, swallowing difficulty TISSUE SUBMITTED: A- Distal esophagus biopsy, B- Cecal polyp x2 MICROSCOPIC DIAGNOSIS A. Distal esophagus, biopsy: * Squamous mucosa with mild reactive change, negative for eosinophils. * Columnar mucosa negative for goblet cell metaplasia B. Colon, cecum, polyp x 2, biopsy: * Tubular adenoma x1. * Mucosal lymphoid aggregate x1. MICROSCOPIC DESCRIPTION Slides are reviewed. GROSS DESCRIPTION A. Received in formalin in a container labeled with the patient's name, date of , and distal esophagus biopsy are 2 sweeney-pink fragments of mucosal tissue, each measuring 0.4 x 0.4 x 0.2 cm. Submitted in toto in A1. B. Received in formalin in a container labeled with the patient's name, date of , and cecal polyp x 2 are multiple sweeney-pink fragments of mucosal tissue measuring 0.7 x 0.6 x 0.2 cm in aggregate. Submitted in toto in B1. [facility] 03/12/2025 CPT:87635f5
--- NOTE | 2025-03-06 09:45 | PCM.HP.STD ---
HPI - General General Date of Admission: 03/06/25 Date of Service: 03/06/25 Chief Complaint: Dysphagia, GERD and CRS HPI Narrative OMKAR SMITH, is a 74 M who presents with trouble swallowing and the need for surveillance colonoscopy EGD 11/19/2023 ([facility]) neg for Esparza's, mild gastritis, negative H. pylori, fundic gland polyps - Normal middle third of esophagus. Biopsied. - Reflux esophagitis with no bleeding. Biopsied. - 1 cm hiatal hernia. - Erythematous mucosa in the antrum. Biopsied. - Multiple gastric polyps. Resected and retrieved. - Normal examined duodenum. Minimal esophagitis and very small hiatal hernia might contribute to esophageal dysphagia but findings appear mild. Will await pathology and contact patient. If symptoms persist then might consider esophageal manometry. COLON scheduled 03/[address] Perez - protonix 40mg once a day - has been on this for many years - cough up food at times, c/o dysphagia in the upper esophagus - dysphagia to pills and solid foods - denies any N/V - denies any HB - denies any weight loss - reports a history of EGD in the past with dilation - reports this was beneficial - dysphagia is in upper esophagus and was in same location previously - reports his last colon was in 2019 - reports a remote colon polyps - Sister with colon CA at 41y/o - Celebrex the past few months for joint aches and pains - denies any use of NSAIDS prior to starting celebrex - caffeine intake - 1-2x a week - denies smoking - denies any heart or lung disease - denies any kidney disease - previously saw ENT for hearing [facility] Medical History Family history of malignant neoplasm of colon in relative diagnosed when younger than 50 years of age GERD (gastroesophageal reflux disease) Skin lesion of scalp Colon cancer screening Surgical wound breakdown Fatigue Dyspnea Left shoulder pain History of steroid therapy Alcohol use Gastric reflux Hypertension Neuropathy BPH (benign prostatic hyperplasia) Autoimmune thyroiditis Wears hearing aid Non-smoker Health care maintenance Impacted cerumen of left ear Swallowing difficulty Chronic back pain Sciatica, left side Hyperlipidemia Anemia Shae's disease Graves disease Bunion Vitamin deficiency Thyroid disease Hx of gastroesophageal reflux (GERD) Prostate atrophy Hearing problem Gastrointestinal problem Anxiety Carpal tunnel syndrome History of melanoma History of back problems Arthritis Allergies Home Medications ?Medication ?Instructions ?Recorded ?Last Taken ?Type calcium carbonate 600 mg PO DAILY SUPPLEMENT 10/29/23 03/04/25 History cholecalciferol (vitamin D3) 10 400 unit PO DAILY SUPPLEMENT 10/29/23 03/04/25 History mcg (400 unit) capsule multivitamin 1 tab PO DAILY SUPPLEMENT 10/29/23 03/04/25 History propranolol 20 mg tablet 20 mg PO DAILY PRN HEART 10/29/23 11/18/23 History diphenhydramine HCl 25 mg tablet 25 mg PO TID PRN allergy symptoms 01/09/24 03/04/25 History (Benadryl Allergy) ferrous sulfate 325 mg (65 mg 325 mg PO Q OTHER DAY SUPPLEMENT 09/02/24 03/03/25 Rx iron) tablet #90 tabs sertraline 100 mg tablet 100 mg PO DAILY #90 tabs 11/09/24 03/04/25 Rx celecoxib 200 mg capsule (Celebrex) 200 mg PO QDAY PRN pain #90 caps 12/08/24 03/04/25 Rx pantoprazole 40 mg tablet,delayed 40 mg PO DAILY reflux #90 tabs 02/06/25 03/04/25 Rx release (Protonix) Allergy/AdvReac Type Severity Reaction Status Date / Time meloxicam (From Mobic) Allergy Intermediate Mucosal Verified 03/06/25 08:40 lesions povidone-iodine (From Allergy Rash Verified 03/06/25 08:40 Betadine) soap (From Betadine) Allergy Rash Verified 03/06/25 08:40 Family History Father Emphysema of lung Ruptured (nontraumatic) hernia Abdominal aortic aneurysm Mother Cancer Alcoholism Sister Cancer Colon cancer, Onset Age: 41 At 41yrs Surgical History Hx of local excision of skin lesion History of carpal tunnel surgery of left wrist S/P TURP History of melanoma excision History of tonsillectomy History of esophagogastroduodenoscopy (EGD) History of colonoscopy History of cervical spinal surgery History of knee surgery H/O elbow surgery cspine H/O hand surgery Previous back surgery S/P foot surgery Social History household members: spouse current occupational status: retired Smoking Status: Never smoker alcohol intake: current alcohol intake frequency: a few times a week substance use type: does not use what type of physical activity do you participate in: walking, weight training and other details: CARDIOVASCULAR TRAINING frequency: daily seatbelt use: always do you feel safe at home: Yes ROS Constitutional Constitutional: Denies fatigue, fever(s), poor appetite, weight gain or weight loss Gastrointestinal Gastrointestinal: Denies belching, bloating, change in bowel habits, change in stool character, chewing difficulty, coffee ground emesis, constipation, cramping, diarrhea, dyspepsia, dysphagia, early satiety, excessive flatus, fecal incontinence, heartburn, hematemesis, hematochezia, hemorrhoids, loose stools, melena, nausea, odynophagia, rectal bleeding, tenesmus, vomiting or weight changes Vital Signs Vital Signs Vital Signs: 03/06/25 08:42 03/06/25 08:42 03/06/25 09:04 Temperature 96.8 F L 96.8 F L Temperature Source Temporal Pulse Rate 56 L 56 L Respiratory Rate 18 18 Respiratory Pattern Normal Blood Pressure 119/79 119/79 Blood Pressure Mean 92 Blood Pressure Source Monitor Blood Pressure Position Semi-Fowlers Blood Pressure Location Left Arm Pulse Ox 99 99 Oxygen Delivery Method Room Air Weight Weight: 177 lb 0.499 oz Body Mass Index (BMI) 25.4 Physical Exam Const alert, oriented x3, no apparent distress and healthy appearing General Appearance: cooperative GI normal to inspection, nondistended, normoactive bowel sounds, soft to palpation, non-tender and non-distended Percussion: normal to percussion Rectal Exam: deferred Assessment & Plan Assessment/Plan (1) GERD (gastroesophageal reflux disease): (2) Colon cancer screening: (3) Swallowing difficulty: QUALIFIERS: Dysphagia type: unspecified Qualified Code(s): R13.10 - Dysphagia, unspecified PLAN: Assessment and Plan Assessment and Plan (1) GERD (gastroesophageal reflux disease): Status: Acute (2) Swallowing difficulty: Status: Chronic Qualifiers: Dysphagia type: unspecified Qualified Code(s): R13.10 - Dysphagia, unspecified Medications: New famotidine 40 mg PO QHS 90 tabs 1RF Plan 74y/o male presents for consultation with complaints of difficulty swallowing and vocal changes. Symptoms have been present for the past 6-8 months. He is on pantoprazole 40mg daily and denies any heartburn, N/V, or weight loss. He reports a remote history of improvement in dysphagia with esophageal dilation. I have added famotidine at HS and added EGD to colonoscopy scheduled on 03/06/2025. He will follow-up in the office post procedure. Patient Instructions: Continue pantoprazole 40mg every morning Add famotidine 40mg at HS Follow-up in office post procedure Pending symptoms and findings, may refer to ENT
--- NOTE | 2025-03-06 10:24 | OP.CCLET_ITS ---
03/06/2025 Vy Casas MD [address] [place] [address] [place] [address] Re : Upper GI endoscopy procedure for Dariel Bo Dear Dr. Casas This procedure was performed on Thursday, March 06, 2025. My impressions and recommendations are as follows: Impressions : - Abnormal esophageal motility, suspicious for esophageal spasm. Dilated. - Z-line irregular, 40 cm from the incisors. Biopsied. - Small hiatal hernia. - No gross lesions in the entire examined duodenum. Recommendations : - Discharge patient to home. - Resume previous diet. - Continue present medications. - Await pathology results. My findings are described in the full procedure note, which is enclosed. If I can be of further assistance, please feel free to contact me at . Sincerely, William Perez, 03/06/2025 10:23:50 AM This report has been signed electronically.
--- NOTE | 2025-03-06 10:24 | OP.EGD_ITS ---
Patient Name: Dariel Bo Procedure Date: 03/06/2025 9:49 AM Date of : 1950 Age: 74 Procedure: Upper GI endoscopy Indications: Dysphagia Providers: William Perez DO Referring MD: Vy Casas MD Medicines: Monitored Anesthesia Care Patient Profile: This is a 74 year old male. Refer to note in patient chart for documentation of history and physical. Patient has symptoms of dysphagia with both liquids and solids. Complications: No immediate complications. Procedure: Pre-Anesthesia Assessment: - Prior to the procedure, a History and Physical was performed, and patient medications and allergies were reviewed. The patient is competent. The risks and benefits of the procedure and the sedation options and risks were discussed with the patient. All questions were answered and informed consent was obtained. Patient identification and proposed procedure were verified by the physician in the pre-procedure area. Mental Status Examination: alert and oriented. Airway Examination: normal oropharyngeal airway and neck mobility. Respiratory Examination: clear to auscultation. CV Examination: normal. Prophylactic Antibiotics: The patient does not require prophylactic antibiotics. Prior Anticoagulants: The patient has taken no anticoagulant or antiplatelet agents except for NSAID medication. ASA Grade Assessment: II - A patient with mild systemic disease. After reviewing the risks and benefits, the patient was deemed in satisfactory condition to undergo the procedure. The anesthesia plan was to use monitored anesthesia care (MAC). Immediately prior to administration of medications, the patient was re-assessed for adequacy to receive sedatives. The heart rate, respiratory rate, oxygen saturations, blood pressure, adequacy of pulmonary ventilation, and response to care were monitored throughout the procedure. The physical status of the patient was re-assessed after the procedure. After obtaining informed consent, the endoscope was passed under direct vision. Throughout the procedure, the patient's blood pressure, pulse, and oxygen saturations were monitored continuously. The pediatric colonoscope was introduced through the mouth, and advanced to the fourth part of the duodenum. Small bowel enteroscopy was deemed necessary. The upper GI endoscopy was accomplished without difficulty. The patient tolerated the procedure well. Scope In: 9:59:29 AM Scope Out: 10:04:46 AM Total Procedure Duration Time 0 hours 5 minutes 17 seconds Findings: Abnormal motility was noted in the upper third of the esophagus. The cricopharyngeus was abnormal. There is a decrease in motility of the esophageal body. The distal esophagus/lower esophageal sphincter is open. A guidewire was placed and the scope was withdrawn. Dilation was performed with a Savary dilator with no resistance at 60 Fr. The dilation site was examined and showed mild improvement in luminal narrowing. Estimated blood loss was minimal. The Z-line was irregular and was found 40 cm from the incisors. Biopsies were taken with a cold forceps for histology. Verification of patient identification for the specimen was done. Estimated blood loss was minimal. A small hiatal hernia was present. No other significant abnormalities were identified in a careful examination of the stomach. No gross lesions were noted in the entire examined duodenum. Impression: - Abnormal esophageal motility, suspicious for esophageal spasm. Dilated. - Z-line irregular, 40 cm from the incisors. Biopsied. - Small hiatal hernia. - No gross lesions in the entire examined duodenum. Recommendation: - Discharge patient to home. - Resume previous diet. - Continue present medications. - Await pathology results. Procedure Code(s): --- Professional --- 96710, Esophagogastroduodenoscopy, flexible, transoral; with insertion of guide wire followed by passage of dilator(s) through esophagus over guide wire 82322, 59,51, Small intestinal endoscopy, enteroscopy beyond second portion of duodenum, not including ileum; with biopsy, single or multiple CPT copyright 2021 [employer]. All rights reserved. The codes documented in this report are preliminary and upon housing specialist review may be revised to meet current compliance requirements. William Perez DO 03/06/2025 10:23:50 AM This report has been signed electronically. Number of Addenda: 0 Note Initiated On: 03/06/2025 9:49 AM
--- NOTE | 2025-03-06 10:28 | OP.COLON_ITS ---
Patient Name: Dariel Bo Procedure Date: 03/06/2025 10:04 AM Date of : 1950 Age: 74 Procedure: Colonoscopy Indications: High risk colon cancer surveillance: Personal history of colonic polyps Providers: William Perez DO Referring MD: Vy Casas MD Medicines: Monitored Anesthesia Care Patient Profile: This is a 74 year old male. Refer to note in patient chart for documentation of history and physical. Patient has symptoms of dysphagia with both liquids and solids. Last Colonoscopy: 5 years ago. Complications: No immediate complications. Procedure: Pre-Anesthesia Assessment: - Prior to the procedure, a History and Physical was performed, and patient medications and allergies were reviewed. The patient is competent. The risks and benefits of the procedure and the sedation options and risks were discussed with the patient. All questions were answered and informed consent was obtained. Patient identification and proposed procedure were verified by the physician in the pre-procedure area. Mental Status Examination: alert and oriented. Airway Examination: normal oropharyngeal airway and neck mobility. Respiratory Examination: clear to auscultation. CV Examination: normal. Prophylactic Antibiotics: The patient does not require prophylactic antibiotics. Prior Anticoagulants: The patient has taken no anticoagulant or antiplatelet agents except for NSAID medication. ASA Grade Assessment: II - A patient with mild systemic disease. After reviewing the risks and benefits, the patient was deemed in satisfactory condition to undergo the procedure. The anesthesia plan was to use monitored anesthesia care (MAC). Immediately prior to administration of medications, the patient was re-assessed for adequacy to receive sedatives. The heart rate, respiratory rate, oxygen saturations, blood pressure, adequacy of pulmonary ventilation, and response to care were monitored throughout the procedure. The physical status of the patient was re-assessed after the procedure. After I obtained informed consent, the scope was passed under direct vision. Throughout the procedure, the patient's blood pressure, pulse, and oxygen saturations were monitored continuously. The pediatric colonoscope was introduced through the anus and advanced to the cecum, identified by appendiceal orifice and ileocecal valve. The colonoscopy was performed without difficulty. The patient tolerated the procedure well. The quality of the bowel preparation was adequate. The ileocecal valve, appendiceal orifice, and rectum were photographed. Scope In: 10:06:39 AM Scope Withdrawal Time 0 hours 9 minutes 18 seconds Scope Out: 10:19:07 AM Total Procedure Duration Time 0 hours 12 minutes 28 seconds Findings: The perianal and digital rectal examinations were normal. Two sessile polyps were found in the cecum. The polyps were 7 mm in size. These polyps were removed with a jumbo cold forceps. Resection and retrieval were complete. Verification of patient identification for the specimen was done using the patient's medical record number. Estimated blood loss was minimal. A few small-mouthed diverticula were found in the recto-sigmoid colon. Impression: - Two 7 mm polyps in the cecum, removed with a jumbo cold forceps. Resected and retrieved. - Diverticulosis in the recto-sigmoid colon. Recommendation: - Discharge patient to home. - Resume previous diet. - Continue present medications. - Repeat colonoscopy in 5 years for surveillance. Procedure Code(s): --- Professional --- 93297, Colonoscopy, flexible; with biopsy, single or multiple CPT copyright 2021 [employer]. All rights reserved. The codes documented in this report are preliminary and upon senior sales assistant review may be revised to meet current compliance requirements. William Perez DO 03/06/2025 10:28:33 AM This report has been signed electronically. Number of Addenda: 0 Note Initiated On: 03/06/2025 10:04 AM
--- NOTE | 2025-03-06 10:28 | PCM.POST.ANE ---
Anesthesia: Postop Eval I Current Vital Signs Temperature: 98.2 F Pulse Rate: 57 Blood Pressure: 103/70 Respiratory Rate: 16 Pulse Ox: 97 Oxygen Delivery Method: Room Air Assessment Airway patent: Yes Spontaneous unlabored respirations: Yes Mental status: Awake nausea: No Vomiting: No Anesthesia Complication: No Fluid Hydration Crystalloid volume administer (ml): 60 Total IV fluid infused: 60 Progress Note Anesthesia document: Postop Eval 1 completed: Yes
--- NOTE | 2025-03-06 10:29 | OP.CCLET_ITS ---
03/06/2025 Vy Casas MD [address] [place] [address] [place] [address] Re : Colonoscopy procedure for Dariel Bo Dear Dr. Casas This procedure was performed on Thursday, March 06, 2025. My impressions and recommendations are as follows: Impressions : - Two 7 mm polyps in the cecum, removed with a jumbo cold forceps. Resected and retrieved. - Diverticulosis in the recto-sigmoid colon. Recommendations : - Discharge patient to home. - Resume previous diet. - Continue present medications. - Repeat colonoscopy in 5 years for surveillance. My findings are described in the full procedure note, which is enclosed. If I can be of further assistance, please feel free to contact me at . Sincerely, William Perez, 03/06/2025 10:28:33 AM This report has been signed electronically.
--- NOTE | 2025-03-06 11:50 | PCM.POSTANE2 ---
Anesthesia Postop Eval I Sum Postop Eval Completion status Anesthesia document: Postop Eval 1 completed: Yes Anesthesia Postop Eval I Summary Anesthesia Postop Eval I Summary: Anesthesia Postop Eval I: Assessment Summary Airway patent Yes 03/06/25 10:29 [email or web address] Spontaneous unlabored Yes 03/06/25 10:29 [email or web address] respirations Mental status Awake 03/06/25 10:29 [email or web address] nausea No 03/06/25 10:29 [email or web address] Vomiting No 03/06/25 10:29 [email or web address] Anesthesia Postop Eval I: Fluid Summary Crystalloid volume administer 60 03/06/25 10:29 [email or web address] (ml) Colloids volume administered ( ml) Blood Product volume administered (ml) Total IV fluid infused 60 03/06/25 10:29 [email or web address] Anesthesia Postop Eval I: Summary Notes Anesthesia Complication No 03/06/25 10:29 [email or web address] Anesthesia Complication Comment: Post-operative progress note Anesthesia: Postop Eval II Evaluation Mental status: Awake Pain Level: 0 nausea: No Vomiting: No
== END 2025-03-06 11:19 | disposition home or self-care (01) ==
LOC: EN 08:25 → AC 08:26
PROVIDERS: PCP Internal Medicine; Referring Provider Internal Medicine; Visit Provider Internal Medicine Gastroenterology
PROC: 0DJD8ZZ Inspection of Lower Intestinal Tract, Via Natural or Artificial Opening Endoscopic (ICD-10-PCS; CPT 45378; principal; 2025-03-06 09:25)
DX: Z12.11 Encounter for screening for malignant neoplasm of colon (principal); D12.0 Benign neoplasm of cecum; K57.30 Diverticulosis of large intestine without perforation or abscess without bleeding; K22.4 Dyskinesia of esophagus; K44.9 Diaphragmatic hernia without obstruction or gangrene; K21.9 Gastro-esophageal reflux disease without esophagitis; I10 Essential (primary) hypertension; Z79.899 Other long term (current) drug therapy; Z86.0100 Personal history of colon polyps, unspecified; Z80.0 Family history of malignant neoplasm of digestive organs
CPT/HCPCS: 45380; 43248; 43239; 88305; A4216; C1769; J2405

== ENCOUNTER → 2025-07-20 | Outpatient (CLI) | payer MEDICARE, SELFPAY ==
[2025-07-20 16:21] LABS: PSA,Total - Annual Screen 3.18 ng/mL (0.02-4.00)
== END | disposition home or self-care (01) ==
LOC: LAB 14:27
PROVIDERS: PCP Internal Medicine; Referring Provider Urology; Visit Provider Urology
DX: Z12.5 Encounter for screening for malignant neoplasm of prostate (principal)
CPT/HCPCS: 36415; 84153; G0103

== ENCOUNTER → 2025-10-18 | Outpatient (CLI) | payer MEDICARE, SELFPAY ==
[2025-10-18 12:33] LABS: Hematocrit 37.4 % (40-54); Hemoglobin 12.8 g/dL (13.0-16.5); Immature Granulocytes Count 0.010 X10^3/uL (0.0-0.0); Mean Corp Hgb Conc 34.2 g/dL (32-36); Mean Corpuscular Volume 93.7 fL (80-94); Mean Platelet Vol. 10.2 fl (6.2-12.0); NRBC Flagged by Analyzer 0 % (0-5); Platelet Count 195 K/mm3 (150-450); RBC Distribution Width CV 12.5 % (11.6-14.6); RBC Distribution Width SD 43.4 fl (35.1-43.9); Red Blood Count 3.99 M/mm3 (4.6-6.2); White Blood Count 7.1 K/mm3 (4.4-11.0)
[2025-10-18 13:24] LABS: AST(SGOT) 30 U/L (<=37); Alanine Aminotransfer ALT/SGPT 26 U/L (<=46); Albumin, Serum 4.1 g/dL (3.4-4.8); Alkaline Phosphatase 52 U/L (40-129); Anion Gap 10 (5-15); BUN 19 mg/dL (4-19); BUN/Creat Ratio 20.1 RATIO (10-20); Calcium,Total 9.3 mg/dL (7.6-11.0); Carbon Dioxide 24.4 mmol/L (21.0-32.0); Chloride 103 mmol/L (98-108); Cholesterol 163 mg/dL (<=200); Globulin 2.7 g/dL (2.2-4.2); Glucose 85 mg/dL (70-99); Low Density Lipoprotein Calc. 90 mg/dL; Potassium 4.5 mmol/L (3.3-5.1); Triglycerides 102 mg/dL; Very Low Density Lipoprotein 20 mg/dL (5-40); cholesterol:hdl ratio screen 2.97
== END | disposition home or self-care (01) ==
LOC: LAB 12:15
PROVIDERS: PCP Internal Medicine; Referring Provider Internal Medicine; Visit Provider Internal Medicine
DX: E78.5 Hyperlipidemia, unspecified (principal); K21.9 Gastro-esophageal reflux disease without esophagitis
CPT/HCPCS: 36415; 80053; 80061; 85025